=== PATIENT | female | born 1970 | race Caucasian/White ===

== ENCOUNTER 2018-04-09 18:45 | Emergency (ER) | payer MEDICARE, MEDICAID ==
[2018-04-09] MEDS ORDERED: IBUPROFEN 800 MG TABLET PO ONE (19:50)
--- NOTE | 2018-04-09 20:13 | RADIOLOGY REPORT (SQ) ---
EXAM DESCRIPTION: WRIST RIGHT 3 VIEWS COMPLETED DATE/TIME: 04/09/2018 7:59 pm REASON FOR STUDY: pain "knots" COMPARISON: None. NUMBER OF VIEWS: Three views. TECHNIQUE: AP, lateral, and oblique radiographic images acquired of the right wrist. LIMITATIONS: None. FINDINGS: MINERALIZATION: Normal. BONES: No acute fracture or dislocation. No worrisome bone lesions. Normal alignment. SOFT TISSUES: No soft tissue swelling. No foreign body. OTHER: No other significant finding. IMPRESSION: NEGATIVE STUDY OF THE RIGHT WRIST. NO RADIOGRAPHIC EVIDENCE OF ACUTE INJURY. TECHNICAL DOCUMENTATION: JOB ID: [id number] [employer]- All Rights Reserved Reading location - IP/workstation name: [email or web address]
--- NOTE | 2018-04-09 20:13 | RADIOLOGY REPORT (SQ) ---
EXAM DESCRIPTION: HAND RIGHT 3 VIEWS COMPLETED DATE/TIME: 04/09/2018 7:59 pm REASON FOR STUDY: pain "knots" COMPARISON: None. EXAM PARAMETERS: NUMBER OF VIEWS: Three views. TECHNIQUE: AP, lateral and oblique radiographic images acquired of the right hand. LIMITATIONS: None. FINDINGS: MINERALIZATION: Normal. BONES: No acute fracture or dislocation. No worrisome bone lesions. JOINTS: No effusions. SOFT TISSUES: No soft tissue swelling. No foreign body. OTHER: No other significant finding. IMPRESSION: NEGATIVE STUDY OF THE RIGHT HAND. NO RADIOGRAPHIC EVIDENCE OF ACUTE INJURY. TECHNICAL DOCUMENTATION: JOB ID: [id number] [employer] All Rights Reserved Reading location - IP/workstation name: [email or web address]
--- NOTE | 2018-04-09 20:42 | ER Document Report ---
ED Extremity Problem, Upper - General Chief Complaint: Wrist Pain Stated Complaint: RIGHT WRIST PAIN Time Seen by Provider: 04/09/18 19:39 Mode of Arrival: Ambulatory Information source: Patient Notes: 47-year-old female presented ED for complaint of right hand pain 3 months. She states she also has right wrist pain. She is wearing a cock-up splint when I came in to see her. She is alert and oriented respirations regular and nonlabored speaking in full sentences and walks with a even steady gait. TRAVEL OUTSIDE OF THE [place] IN LAST 30 DAYS: No - HPI Patient complains to provider of: Right, Hand, Wrist Onset: Other - Pain has been for about 3 months Recent injury: No Quality of pain: Achy, Sharp Severity of pain: Constant Pain Level: 3 Exacerbated by: Movement, Exertion Relieved by: Rest, Positioning Similar symptoms previously: Yes Recently seen / treated by doctor: No - Related Data Allergies/Adverse Reactions: duloxetine [From Cymbalta] Allergy (Verified 04/09/18 18:49) vortioxetine [From Trintellix] Allergy (Verified 04/09/18 18:49) Past Medical History - General Information source: Patient - Social History Smoking Status: Current Every Day Smoker Cigarette use (# per day): Yes - Pack per day Chew tobacco use (# tins/day): No Smoking Education Provided: Yes - 4 minutes Frequency of alcohol use: Occasional Drug Abuse: None 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 Lives with: Family Family History: Reviewed & Not Pertinent Patient has suicidal ideation: No Patient has homicidal ideation: No - Past Medical History Cardiac Medical History: Reports: Hx Hypercholesterolemia, Hx Hypertension Pulmonary Medical History: Reports: Hx COPD EENT Medical History: Reports: None Neurological Medical History: Reports: Hx Migraine Endocrine Medical History: Reports: Hx Diabetes Mellitus Type 2, Hx Hypothyroidism Renal/ Medical History: Reports: None Malignancy Medical History: Reports: None GI Medical History: Reports: Hx Gastroesophageal Reflux Disease Musculoskeltal Medical History: Reports Hx Arthritis, Reports Hx Musculoskeletal Deformity, Reports Hx Musculoskeletal Trauma Psychiatric Medical History: Reports: Hx Depression Traumatic Medical History: Reports: None Infectious Medical History: Reports: None Past Surgical History: Reports: Hx Gynecologic Surgery - Uterine ablation and, Hx Orthopedic Surgery - Neck surgery, Hx Tubal Ligation - Immunizations Immunizations up to date: Yes Review of Systems - Review of Systems Constitutional: No symptoms reported EENT: No symptoms reported Cardiovascular: No symptoms reported Respiratory: No symptoms reported Gastrointestinal: No symptoms reported Genitourinary: No symptoms reported Female Genitourinary: No symptoms reported Musculoskeletal: Other - Right hand and wrist pain Skin: No symptoms reported Hematologic/Lymphatic: No symptoms reported Neurological/Psychological: No symptoms reported -: Yes All other systems reviewed and negative Physical Exam - Vital signs Vitals: Temp Pulse Resp BP Pulse Ox 98.5 F 103 H 20 131/68 H 95 04/09/18 18:52 04/09/18 18:52 04/09/18 18:52 04/09/18 18:52 04/09/18 18:52 - Extremities General upper extremity: Normal color, Normal ROM, Normal temperature General lower extremity: Normal inspection, Nontender, Normal color, Normal ROM , Normal temperature, Normal weight bearing. No: Reji's sign Wrist: Tender, Limited ROM - Due to pain Hand: Tender, No evidence of human bite, No evidence of FB, Other - Small cyst just medial to the thumb on the hand Course - Re-evaluation Re-evalutation: 04/09/18 20:50 X-ray results discussed with patient and written report given to patient to follow-up with orthopedics. Patient was given the name and number of the hand surgeon to follow-up with. Patient was instructed to use elevation ice and ibuprofen for her pain. Patient has a cock-up splint on when she came in. I encouraged her to use that for the discomfort as she states this has been helping her. - Vital Signs Vital signs: Temp Pulse Resp BP Pulse Ox 98.5 F 103 H 20 131/68 H 95 04/09/18 18:52 04/09/18 18:52 04/09/18 18:52 04/09/18 18:52 04/09/18 18:52 - Diagnostic Test Radiology reviewed: Image reviewed, Reports reviewed Discharge - Discharge Clinical Impression: Right wrist pain, Right hand pain HTN (hypertension) Qualifiers: Hypertension type: unspecified Qualified Code(s): I10 - Essential (primary) hypertension Condition: Stable Disposition: HOME, SELF-CARE Additional Instructions: You were seen today for complaint of right hand pain for the last 3 months. States there have been no new injuries to your hand. Your hand was x-rayed today, there were no radiological changes to your hand. Written report of your x-rays were given to you to follow-up with your primary doctor. Please use the splint that you have on your hand for comfort. Aspercreme lidocaine cream can be used on this area to help with the pain. Ibuprofen Ibuprofen is an excellent, safe drug for pain control. In addition, it has potent antiinflammatory effects which are beneficial, especially in the treatment of injuries, arthritis, or tendonitis. It's best to take ibuprofen with food. Persons with ulcer disease or allergy to aspirin should notify their physician of this before taking ibuprofen. Take the medication exactly as prescribed. Don't take additional doses unless instructed to do so by your doctor. If you develop wheezing, shortness of breath, hives, faintness, stomach pain, vomiting, or dark black stools, return for re-evaluation at once. ICE & ELEVATION: Apply ice packs frequently against the painful area. Many different schedules are recommended, such as "20 minutes on, 20 minutes off" or "one hour ice, two hours rest." If you need to work, you may need to go longer between ice treatments. You should plan to have the area ice packed AT LEAST one- fourth of the time. The ice should be applied over the wrap, tape, or splint, or over a layer of cloth -- not directly against the skin. Some ice bags have a built-in cloth and can be put directly on the skin. Your injured part should be elevated as much as possible over the next 48 hours. Try to keep the injury above the level of the heart. Avoid use of the injured area. Elevation and rest will decrease the swelling. USE OF [id number] IBUPROFEN: Ibuprofen (Advil, Nuprin, Medipren, Motrin IB) is a medication for fever and pain control. In addition, it has anti- inflammatory effects which may be beneficial, especially in the treatment of injuries. It's best to take ibuprofen with food. Persons with ulcer disease or allergy to aspirin should notify their physician of this before taking ibuprofen. Ibuprofen can be given every four to six hours, for a total of four doses daily. Age Pain or fever dose Antiinflammatory dose 6-8 yr 200 mg (1 tab) 200 mg (1 tab) 9-11 yr 200 mg (1 tab) 200-400 mg (1-2 tab) 11-14 yr 200-400 mg (1-2 tab) 400 mg (2 tab) 15-adult 400 mg (2 tab) 600 mg (3 tab) FOLLOW-UP CARE: If you have been referred to a physician for follow-up care, call the physician s office for an appointment as you were instructed or within the next two days. If you experience worsening or a significant change in your symptoms, notify the physician immediately or return to the Emergency Department at any time for re-evaluation. Forms: Elevated Blood Pressure, Smoking Cessation Education, Return to Work Referrals: NEENA ANTHONY MD [Primary Care Provider] - Follow up as needed ERIN MURPHY DO [ACTIVE STAFF] - Follow up as needed
[2018-04-09 20:50] VITALS: BP 117/57
== END 2018-04-09 20:50 | disposition home or self-care (01) ==
LOC: ER 18:45
DX: M79.641 Pain in right hand (principal); M25.531 Pain in right wrist; I10 Essential (primary) hypertension; J44.9 Chronic obstructive pulmonary disease, unspecified; E11.9 Type 2 diabetes mellitus without complications; F17.210 Nicotine dependence, cigarettes, uncomplicated; Z71.6 Tobacco abuse counseling; Z88.6 Allergy status to analgesic agent; Z88.8 Allergy status to other drugs, medicaments and biological substances
CPT/HCPCS: 99406; 99283; 73130; 73110; A9270

== ENCOUNTER 2018-10-23 19:52 | Emergency (ER) | payer MEDICARE, MEDICAID ==
--- NOTE | 2018-10-23 20:48 | ER Document Report ---
ED General - General Chief Complaint: Ear Pain Stated Complaint: EAR PAIN Time Seen by Provider: 10/23/18 20:47 Mode of Arrival: Ambulatory Information source: Patient TRAVEL OUTSIDE OF THE [place] IN LAST 30 DAYS: No - HPI Patient complains to provider of: Ear pain Onset: Other - Is a 47-year-old female who is an every day smoker and diabetic that presents for evaluation of pain in her left ear. She notes that she had this pierced because it helps with headaches have been doing okay with that sense. Her ear is been worse over the last 3 days she began to have pain and drainage from there since. She is not been able to take it out she is been washing it twice a day without any improvement in the symptoms. Denies any chest pain shortness of breath abdominal pain diarrhea constipation dysuria. She never had anything like this in the past. Has no change in her ability to hear out of the ear. - Related Data Allergies/Adverse Reactions: duloxetine [From Cymbalta] Allergy (Verified 04/09/18 18:49) vortioxetine [From Trintellix] Allergy (Verified 04/09/18 18:49) Past Medical History - General Information source: Patient - Social History Smoking Status: Current Every Day Smoker Chew tobacco use (# tins/day): Yes Smoking Education Provided: Yes Frequency of alcohol use: Occasional Drug Abuse: None Lives with: Family Family History: Reviewed & Not Pertinent - Past Medical History Cardiac Medical History: Reports: Hx Hypercholesterolemia, Hx Hypertension Pulmonary Medical History: Reports: Hx COPD Neurological Medical History: Reports: Hx Migraine Endocrine Medical History: Reports: Hx Diabetes Mellitus Type 2, Hx Hypothyroidism Renal/ Medical History: Denies: Hx Peritoneal Dialysis GI Medical History: Reports: Hx Gastroesophageal Reflux Disease Musculoskeletal Medical History: Reports Hx Arthritis, Reports Hx Muscul oskeletal Deformity, Reports Hx Musculoskeletal Trauma Psychiatric Medical History: Reports: Hx Depression Past Surgical History: Reports: Hx Gynecologic Surgery - Uterine ablation and, Hx Orthopedic Surgery - Neck surgery, Hx Tubal Ligation - Immunizations Immunizations up to date: Yes Review of Systems - Review of Systems -: Yes All other systems reviewed and negative Physical Exam - Vital signs Vitals: Temp Pulse Resp BP Pulse Ox 98.3 F 114 H 18 128/77 H 94 10/23/18 20:15 10/23/18 20:15 10/23/18 20:15 10/23/18 20:15 10/23/18 20:15 - General General appearance: Appears well In distress: None - HEENT Head: Normocephalic Eyes: Normal Conjunctiva: Normal Cornea: Normal Eyelashes: Normal Pupils: PERRL Ears: Other - The tragus is pierced, erythematous, there is purulent drainage and an intact piercing in the year. There is tenderness and pain with manipulation of the auricle - Respiratory Respiratory status: No respiratory distress Chest status: Nontender Breath sounds: Normal Chest palpation: Normal Course - Re-evaluation Re-evalutation: 47-year-old with pain and swelling in the left ear. She has a piercing in the tragus of the left ear which is infected and appears to have developed erythema and swelling into the surrounding cartilage of the left ear. Believe that this is appropriate for treatment at this time, foreign body will be removed to prevent further infectious development. The urine was subsequently removed, she was encouraged not to replace the hearing thereafter. She was discharged with a prescription for Phenergan as she has had intermittent nausea recently as well as a prescription for ciprofloxacin for her possible ear infection. She is discharged with return precautions and encouraged follow-up with her primary physician as well as smoking cessation counseling. - Vital Signs Vital signs: Temp Pulse Resp BP Pulse Ox 98.3 F 95 18 133/70 H 96 10/23/18 20:15 10/23/18 21:38 10/23/18 21:38 10/23/18 21:38 10/23/18 21:38 Procedures - Incision and Drainage Left Head Incision Method: Incision made with needle - no incision was required for body removal Notes: A circular loop hearing which was embedded in the left ear was cut out utilizing a ring cutter, no retained foreign body was identified, the entirety of the earring was removed Discharge - Discharge Clinical Impression: Perichondritis, Foreign body Condition: Good Disposition: HOME, SELF-CARE Additional Instructions: You were seen today in the emergency department for the pain and swelling in your ear. Your earring was cut out. You have been given an antibiotic to use for the next week. Please continue to use soap and water to cleanse this. Return in case of worsening fevers chills swelling in the ear which is worsening. Otherwise please follow-up with your primary physician. Prescriptions: Ciprofloxacin HCl [Cipro 500 mg Tablet] 500 mg PO BID #20 tablet Promethazine HCl [Phenergan 25 mg Tablet] 1 - 2 tab PO Q6H PRN #15 tablet PRN Reason: Referrals: NEENA ANTHONY MD [Primary Care Provider] - Follow up as needed
[2018-10-23] MEDS ORDERED: CIPROFLOXACIN HCL 500 MG TABLET PO ONE (21:14)
[2018-10-23 21:40] VITALS: BP 133/70
== END 2018-10-23 21:40 | disposition home or self-care (01) ==
LOC: ER 19:52
DX: H92.02 Otalgia, left ear (principal); F17.200 Nicotine dependence, unspecified, uncomplicated; E11.9 Type 2 diabetes mellitus without complications; I10 Essential (primary) hypertension; J44.9 Chronic obstructive pulmonary disease, unspecified; H61.002 Unspecified perichondritis of left external ear
CPT/HCPCS: 99283; A9270

== ENCOUNTER 2018-12-25 23:42 | Emergency (ER) | payer MEDICARE, MEDICAID ==
[2018-12-26 00:09] VITALS: BP 133/69
[2018-12-26] MEDS ORDERED: DIPH/PERTUSS(ACELL)/TETANUS VAC/PF 0.5 ML SYR (>=10YO) IM ONE (01:25)
[2018-12-26] MEDS ORDERED: IBUPROFEN 800 MG TABLET PO ONE (01:26)
[2018-12-26] MEDS ORDERED: DOXYCYCLINE HYCLATE 100 MG TABLET PO ONE (01:26)
--- NOTE | 2018-12-26 02:05 | RADIOLOGY REPORT (SQ) ---
EXAM DESCRIPTION: XR HIP COMPLETED DATE/TME: 12/26/2018 01:25 CLINICAL HISTORY: 48 years Female, fall COMPARISON: None. Findings: Enostoses. Bones, joints, and soft tissues of the XR HIP/pelvis 1 VIEW appear otherwise unremarkable. IMPRESSION: No acute findings. Limitation: Single view only.
--- NOTE | 2018-12-26 02:20 | RADIOLOGY REPORT (SQ) ---
CLINICAL HISTORY: fall COMPARISON: None. TECHNIQUE: XR FOOT 3 OR MORE VIEWS BILATERAL 12/26/2018 1:25 AM CDT FINDINGS: There is no fracture. Joint spaces are preserved. Soft tissues are unremarkable. IMPRESSION: No acute osseous findings.
--- NOTE | 2018-12-26 02:28 | RADIOLOGY REPORT (SQ) ---
EXAM DESCRIPTION: XR LEFT ANKLE 3 OR MORE VIEWS COMPLETED DATE/TME: 12/26/2018 01:25 CLINICAL HISTORY: 48 years, Female, fall COMPARISON: None. NUMBER OF VIEWS: TECHNIQUE: LIMITATIONS: None. FINDINGS: There is a possible small fracture fragment coming off the lateral tarsal bones, seen on the AP view. This could be a fracture fragment off the cuboid bone. On the lateral view, there is a possible small fracture fragment involving the distal talus, dorsally. There is soft tissue swelling. IMPRESSION: Possible small fracture fragment coming off the lateral tarsal bones. Possible small fracture fragment involving the distal talus, dorsally. Please correlate clinically, as to whether the patient has point tenderness in these locations. copyright 2010 [employer]- All Rights Reserved
--- NOTE | 2018-12-26 03:31 | ER Document Report ---
ED Fall - General Chief Complaint: Fall Injury Stated Complaint: FALL/KNEE,ANKLE,HIP PAIN Time Seen by Provider: 12/26/18 01:18 Primary Care Provider: NEENA ANTHONY MD [Primary Care Provider] - Follow up as needed ROYCE DEY MD [ACTIVE STAFF] - Follow up as needed Notes: Patient is a 48-year-old female diabetic who presents to the emergency department after rolling her left ankle 2 days ago. Patient states she continues with pain, swelling, ecchymosis which is why she presents to the emergency room. Patient also complaining of generalized pain in her right foot and left hip. Patient's denying hitting her head, neck, back, pain in any or loss of consciousness. Patient had sustained some abrasions to her right great toe. States she has been cleaning them and placing bacitracin on them at home for the last 2 days. Past medical history: Diabetes TRAVEL OUTSIDE OF THE [place] IN LAST 30 DAYS: No - Related data Allergies/Adverse Reactions: duloxetine [From Cymbalta] Allergy (Verified 04/09/18 18:49) vortioxetine [From Trintellix] Allergy (Verified 04/09/18 18:49) Past Medical History - General Information source: Patient - Social History Smoking Status: Current Every Day Smoker Frequency of alcohol use: Rare Drug Abuse: None Family History: Reviewed & Not Pertinent Patient has suicidal ideation: No Patient has homicidal ideation: No - Past Medical History Cardiac Medical History: Reports: Hx Hypercholesterolemia, Hx Hypertension Pulmonary Medical History: Reports: Hx COPD Neurological Medical History: Reports: Hx Migraine Endocrine Medical History: Reports: Hx Diabetes Mellitus Type 2, Hx Hypothyroidism Renal/ Medical History: Denies: Hx Peritoneal Dialysis GI Medical History: Reports: Hx Gastroesophageal Reflux Disease Musculoskeletal Medical History: Reports Hx Arthritis, Reports Hx Musculoskeletal Deformity, Reports Hx Musculoskeletal Trauma Psychiatric Medical History: Reports: Hx Depression Past Surgical History: Reports: Hx Gynecologic Surgery - Uterine ablation and, Hx Orthopedic Surgery - Neck surgery, Hx Tubal Ligation - Immunizations Immunizations up to date: Yes Review of Systems - Review of Systems Constitutional: No symptoms reported EENT: No symptoms reported Cardiovascular: No symptoms reported Respiratory: No symptoms reported Gastrointestinal: No symptoms reported Genitourinary: No symptoms reported Female Genitourinary: No symptoms reported Musculoskeletal: See HPI Skin: See HPI Hematologic/Lymphatic: No symptoms reported Neurological/Psychological: No symptoms reported Physical Exam - Vital signs Vitals: Temp Pulse Resp BP Pulse Ox 98.1 F 98 17 133/69 H 94 12/26/18 00:03 12/26/18 00:03 12/26/18 00:03 12/26/18 00:03 12/26/18 00:03 - Notes Notes: GENERAL: Alert, interacts well. No acute distress. HEAD: Normocephalic, atraumatic. EYES: Pupils equal, round, and reactive to light. Extraocular movements intact. ENT: Oral mucosa moist, tongue midline. NECK: Full range of motion. Supple. Trachea midline. LUNGS: Clear to auscultation bilaterally, no wheezes, rales, or rhonchi. No respiratory distress. HEART: Regular rate and rhythm. No murmur ABDOMEN: Soft, non-tender. Non-distended. Bowel sounds present in all 4 qu adrants. EXTREMITIES: Moves all 4 extremities spontaneously. normal radial and dorsalis pedis pulses bilaterally. No cyanosis. Ecchymosis noted left lateral malleolus along with swelling. Good distal capillary refill noted all 5 toes left foot. Patient has abrasions noted to toe #1 and 2 on the right foot. Minor redness noted around abrasion, good capillary refill noted 5 toes right foot. Pelvis: Stable, patient able to walk in the emergency room but is complaining of pain ASIS. No outward trauma seen. BACK: no cervical, thoracic, lumbar midline tenderness. No saddle anesthesia, normal distal neurovascular exam. NEUROLOGICAL: Alert and oriented x3. Normal speech. cranial nerves II through XII grossly intact PSYCH: Normal affect, normal mood. SKIN: Warm, dry, normal turgor. Course - Re-evaluation Re-evalutation: 12/26/18 04:23 Patient's x-ray does note a small fracture fragment coming off the lateral tarsal bones, noted that it could be a fracture fragment of the cuboid bone. Also noted a small fracture fragment involving the distal talus dorsally. Discussed these imaging results with patient at bedside. Will place a short posterior leg splint with close follow-up with orthopedics. Wounds on right toes were cleaned and dressed. Discussed prophylactic antibiotic use due to the slight erythema. Also discussed patient being a diabetic and need for close follow-up. Patient voices that she will follow-up with her primary care provider in the next 24 hours. Patient stable for discharge. - Vital Signs Vital signs: Temp Pulse Resp BP Pulse Ox 98.1 F 98 17 133/69 H 94 12/26/18 00:03 12/26/18 00:03 12/26/18 00:03 12/26/18 00:03 12/26/18 00:03 Procedures - Immobilization Left Pre-Proc Neuro Vasc Exam: Normal Immobilizer type: Short Leg Posterior Performed by: Provider assisted Post-Proc Neuro Vasc Exam: Normal Alignment checked and good: Yes Discharge - Discharge Clinical Impression: Abrasion Talus fracture Qualifiers: Encounter type: initial encounter Fracture type: closed Talus location: unspecified portion of talus Fracture alignment: nondisplaced Laterality: left Qualified Code(s): S92.102A - Unspecified fracture of left talus, initial encounter for closed fracture Cuboid fracture Qualifiers: Encounter type: initial encounter Fracture type: closed Fracture alignment: nondisplaced Laterality: left Qualified Code(s): S92.215A - Nondisplaced fracture of cuboid bone of left foot, initial encounter for closed fracture Condition: Stable Disposition: HOME, SELF-CARE Instructions: Avulsion Fracture of the Ankle ([facility]), Use of Crutches ([facility]), Foot Fracture ([facility]), Fracture ([facility]), Tetanus Immunization Given ([facility]) Additional Instructions: Discussed you have been seen and treated in the emergency department after a fall. There is a small fracture fragment noted to your lateral tarsal bone as well as a small fracture fragment involving the distal talus. He also sustained multiple abrasions to your toes. Due to being diabetic I am placing you on antibiotic prophylaxis. Please make sure you take antibiotics as prescribed. Please make sure you keep the wounds clean and dry. Please make sure you follow-up with your primary care provider in the next 24 to 48 hours for a wound recheck. Please also make sure you follow-up with orthopedics for continued care of the fractures in your left ankle. Please return to the emergency room should he have any other concerning symptoms. Prescriptions: Cephalexin Monohydrate [Keflex 500 mg Capsule] 500 mg PO QID 14 Days capsule Doxycycline Hyclate 100 mg PO BID #14 capsule Hydrocodone/Acetaminophen [[place] 5-325 mg Tablet] 1 - 2 tab PO Q6 PRN #12 tablet PRN Reason: Forms: Return to Work Referrals: NEENA ANTHONY MD [Primary Care Provider] - Follow up as needed ROYCE DEY MD [ACTIVE STAFF] - Follow up as needed
[2018-12-26] MEDS ORDERED: HYDROCODONE/ACETAMINOPHEN 5-325 MG (6 TAB/ER DISP) PO PRN (03:39)
== END 2018-12-26 03:54 | disposition home or self-care (01) ==
LOC: ER 23:42
PROC: 2W3RX1Z Immobilization of Left Lower Leg using Splint (ICD-10-PCS; principal; 2018-12-25)
DX: S92.012A Displaced fracture of body of left calcaneus, initial encounter for closed fracture (principal); S92.215A Nondisplaced fracture of cuboid bone of left foot, initial encounter for closed fracture; S90.411A Abrasion, right great toe, initial encounter; M79.671 Pain in right foot; M25.552 Pain in left hip; X50.1XXA Overexertion from prolonged static or awkward postures, initial encounter; F17.200 Nicotine dependence, unspecified, uncomplicated; I10 Essential (primary) hypertension; J44.9 Chronic obstructive pulmonary disease, unspecified; E11.9 Type 2 diabetes mellitus without complications
CPT/HCPCS: 99283; 90471; 73610; 73502; 73630; 90715; 29515; A9270 ×3

== ENCOUNTER 2019-03-25 23:32 | Emergency (ER) | payer MEDICARE, MEDICAID ==
[2019-03-26] MEDS ORDERED: NORMAL SALINE 1000 ML 1,000 ML IV ONE (00:04)
--- NOTE | 2019-03-26 00:04 | ER Document Report ---
ED General - General Chief Complaint: High Blood Sugar Stated Complaint: REPORTS HIGH BLOOD SUGAR Time Seen by Provider: 03/25/19 23:50 Primary Care Provider: DIRK MUHAMMAD MD [EMERITUS] - Follow up in 3-5 days HERRERA GIMENEZ MD [COMMUNITY BASED STAFF] - Follow up in 3-5 days Notes: Patient is a 48-year-old female who presents with complaint high blood sugar. No fevers. Some nausea. Vomiting x1. She said she lost her Accu-Chek machine and therefore is not been checking her sugars not been doing her sliding scale insulin. She says she finally found her Accu-Chek machine today and it read high therefore she came to the ER. She gave herself a dose of Humalog and Trujeo and then came to the ER. She feels as if she started developing a yeast infection therefore she started using a vaginal cream. She says she is currently between doctors. TRAVEL OUTSIDE OF THE [place] IN LAST 30 DAYS: No - Related Data Allergies/Adverse Reactions: duloxetine [From Cymbalta] Allergy (Verified 04/09/18 18:49) vortioxetine [From Trintellix] Allergy (Verified 04/09/18 18:49) Past Medical History - Social History Smoking Status: Never Smoker Frequency of alcohol use: None Drug Abuse: None Family History: Reviewed & Not Pertinent - Past Medical History Cardiac Medical History: Reports: Hx Hypercholesterolemia, Hx Hypertension Pulmonary Medical History: Reports: Hx COPD Neurological Medical History: Reports: Hx Migraine Endocrine Medical History: Reports: Hx Diabetes Mellitus Type 2, Hx Hypot hyroidism Renal/ Medical History: Denies: Hx Peritoneal Dialysis GI Medical History: Reports: Hx Gastroesophageal Reflux Disease Musculoskeletal Medical History: Reports Hx Arthritis, Reports Hx Musculoskeletal Deformity, Reports Hx Musculoskeletal Trauma Psychiatric Medical History: Reports: Hx Depression Past Surgical History: Reports: Hx Gynecologic Surgery - Uterine ablation and, Hx Orthopedic Surgery - Neck surgery, Hx Tubal Ligation - Immunizations Immunizations up to date: Yes Review of Systems - Review of Systems Notes: My Normal Review Basic REVIEW OF SYSTEMS: CONSTITUTIONAL : Fever. Some fatigue. EENT: Denies eye, ear, throat, or mouth pain or symptoms. Denies nasal or sinus congestion. CARDIOVASCULAR: Denies chest pain. RESPIRATORY: Denies cough, cold, or chest congestion. Denies shortness of breath, difficulty breathing, or wheezing. GASTROINTESTINAL: Denies abdominal pain. Vomiting x1. GENITOURINARY: increased urination. FEMALE GENITOURINARY: Vaginal irritation. MUSCULOSKELETAL: Denies neck or back pain or joint pain or swelling. SKIN: Denies rash or skin lesions. NEUROLOGICAL: Denies altered mental status or loss of consciousness. Denies headache. Denies weakness or paralysis or loss of use of either side. Denies p roblems with gait or speech. Denies sensory or motor loss. ALL OTHER SYSTEMS REVIEWED AND NEGATIVE. Physical Exam - Vital signs Vitals: Temp Pulse Resp BP Pulse Ox 97.9 F 98 16 143/64 H 93 03/25/19 23:39 03/25/19 23:39 03/25/19 23:39 03/25/19 23:39 03/25/19 23:39 - Notes Notes: General Appearance: Well nourished, alert, cooperative, no acute distress, no obvious discomfort. Well-appearing Vitals: reviewed, See vital signs table. Head: no swelling or tenderness to the head Eyes: PERRL, EOMI, Conjuctiva clear Mouth: No decreasd moisture Lungs: No wheezing, No rales, No rhonci, No accessory muscle use, good air exchange bilaterally. Heart: Normal rate, Regular rythm, No murmur, no rub Abdomen: Normal BS, soft, No rigidity, No abdominal tenderness, No guarding, no rebound, no abdominal masses, no organomegaly Extremities: strength 5/5 in all extremities, good pulses in all extremities, no swelling or tenderness in the extremities, no edema. Skin: warm, dry, appropriate color, no rash Neuro: speech clear, oriented x 3, normal affect, responds appropriately to questions. Course - Re-evaluation Re-evalutation: 03/26/19 01:15 Patient's blood sugar came back over 700. I did have the nurse to repeat Accu- Cheks because the patient did take insulin before come to the ER. Her Accu-Chek is still reading high suggesting high blood sugar still over 500. Therefore I gave her 20 units of regular insulin. Remainder of her labs do not show that she is acidotic. She is otherwise well-appearing. There are no signs of infection. We will continue to work on getting her blood sugar under better control. 03/26/19 23:35 Patient's blood sugars eventually improved. I did re-prescribe her insulin that she is turned around low on it. I encouraged her to keep a close on her blood sugars and I will place her on a sliding scale. She says that she had recently been switched to estimating the amount of insulin she needs just based on the food she eats but her sugars have been high since doing this. I encouraged her return to ER immediately if she has recurrent high blood sugars not responding to insulin, current blurred vision, fevers, or if she feels unwell. Patient agrees with plan will be discharged home. Dictation of this chart was performed using voice recognition software; therefore, there may be some unintended grammatical errors. - Vital Signs Vital signs: Temp Pulse Resp BP Pulse Ox 97.9 F 98 18 113/68 96 03/25/19 23:39 03/25/19 23:39 03/26/19 05:14 03/26/19 05:14 03/26/19 05:14 - Laboratory Result Diagrams: 03/25/19 23:59 03/25/19 23:59 Laboratory results interpreted by me: 03/25/19 03/25/19 03/26/19 23:41 23:59 00:30 Sodium 131.3 L Chloride 96 L Creatinine 0.48 L Glucose 732 H* POC Glucose > 550 H* Urine Glucose (UA) >=500 H 03/26/19 03/26/19 03/26/19 01:08 02:40 03:23 Sodium Chloride Creatinine Glucose POC Glucose > 550 H* 512 H* 456 H* Urine Glucose (UA) 03/26/19 04:33 Sodium Chloride Creatinine Glucose POC Glucose 313 H Urine Glucose (UA) Discharge - Discharge Clinical Impression: Hyperglycemia Condition: Good Disposition: HOME, SELF-CARE Additional Instructions: Your blood sugars been well to insulin here. Please continue to keep a close eye on your blood sugar with your glucometer and take your insulin as prescribed. Please return to the ER immediately if you have fevers, vomiting, recurrent blurred vision, or have recurrent blood sugars above 350 that are not responding to your insulin. I have given the names of 2 local primary care doctors I feel are good doctors in the area. Please call to try to establish herself with a primary care doctor. Please use her Humalog based on the sliding scale. Base the sliding scale off your pre-meal blood sugar. Prescriptions: Insulin Glargine,Hum.rec.anlog [Tojanene Quijano] 80 unit SQ DAILY #1 insuln.pen Insulin Lispro [Humalog Kwikpen U-100] 0 unit SQ ASDIR PRN #1 insuln.pen PRN Reason: Referrals: DIRK MUHAMMAD MD [EMERITUS] - Follow up in 3-5 days HERRERA GIMENEZ MD [COMMUNITY BASED STAFF] - Follow up in 3-5 days
[2019-03-26 00:42] LABS: ABSOLUTE BASOPHILS # (AUTO) 0.1 10^3/uL (0.0-0.2); ABSOLUTE EOSINOPHILS # (AUTO) 0.2 10^3/uL (0.0-0.6); ABSOLUTE LYMPHOCYTES (AUTO) 2.6 10^3/uL (0.5-4.7); ABSOLUTE MONOCYTES (AUTO) 0.8 10^3/uL (0.1-1.4); BASOPHILS % (AUTO) 1.1 % (0-2); EOSINOPHILS % (AUTO) 2.1 % (0-6); HEMATOCRIT 44.5 % (36.0-47.0); HEMOGLOBIN 14.5 g/dL (12.0-15.5); LYMPHOCYTES % (AUTO) 29.5 % (13-45); MEAN CORPUSCULAR HEMOGLOBIN 30.6 pg (27.0-33.4); MEAN CORPUSCULAR HGB CONC 32.6 g/dL (32.0-36.0); MEAN CORPUSCULAR VOLUME 94 fl (80-97); MONOCYTES % (AUTO) 9.4 % (3-13); PLATELET COUNT 396 10^3/uL (150-450); RED BLOOD COUNT 4.73 10^6/uL (3.72-5.28); SEGMENTED NEUTROPHILS % (AUTO) 57.9 % (42-78); TOTAL CELLS COUNTED % (AUTO) 100 %; WHITE BLOOD COUNT 8.7 10^3/uL (4.0-10.5)
[2019-03-26 00:44] LABS: APPEARANCE,URINE CLEAR; BILIRUBIN,URINE NEGATIVE (NEGATIVE); COLOR,URINE STRAW; GLUCOSE, URINE >=500 mg/dL (NEGATIVE); KETONES,URINE NEGATIVE (NEGATIVE); LEUKOCYTE ESTERASE,URINE NEGATIVE (NEGATIVE); NITRITE,URINE NEGATIVE (NEGATIVE); PROTEIN,URINE NEGATIVE (NEGATIVE); URINE SPECIFIC GRAVITY 1.031; UROBILINOGEN,URINE NEGATIVE mg/dL (<2.0)
[2019-03-26 00:46] LABS: ANION GAP 11 (5-19); BLOOD UREA NITROGEN 16 mg/dL (7-20); CALCIUM 9.1 mg/dL (8.4-10.2); CARBON DIOXIDE 24 mmol/L (22-30); CHLORIDE 96 mmol/L (98-107); POTASSIUM 4.5 mmol/L (3.6-5.0); SODIUM 131.3 mmol/L (137-145)
[2019-03-26 01:00] LABS: GLUCOSE 732 mg/dL (75-110)
[2019-03-26] MEDS ORDERED: INSULIN REG, HUMAN 100 UNIT/ML 3 ML VIAL (PYX) SUBCUT ONE ×2 (01:15→03:33)
[2019-03-26 05:32] VITALS: BP 113/68
== END 2019-03-26 05:20 | disposition home or self-care (01) ==
LOC: ER 23:32
DX: E11.65 Type 2 diabetes mellitus with hyperglycemia (principal); R11.2 Nausea with vomiting, unspecified; R53.83 Other fatigue; R50.9 Fever, unspecified; Z79.4 Long term (current) use of insulin; J44.9 Chronic obstructive pulmonary disease, unspecified; I10 Essential (primary) hypertension
CPT/HCPCS: 99284; 96360; 36415; 82962; 85025; 80048; 81001; A9270; J7030; J1815

== ENCOUNTER 2019-10-22 21:48 | Emergency (ER) | payer MEDICAID, MEDICARE, OTHER ==
[2019-10-22 22:28] LABS: APPEARANCE,URINE CLEAR; BILIRUBIN,URINE NEGATIVE (NEGATIVE); COLOR,URINE YELLOW; GLUCOSE, URINE >=500 mg/dL (NEGATIVE); KETONES,URINE NEGATIVE (NEGATIVE); LEUKOCYTE ESTERASE,URINE NEGATIVE (NEGATIVE); NITRITE,URINE NEGATIVE (NEGATIVE); PROTEIN,URINE NEGATIVE (NEGATIVE); URINE SPECIFIC GRAVITY 1.037; UROBILINOGEN,URINE NEGATIVE mg/dL (<2.0)
[2019-10-22 23:08] LABS: ABSOLUTE BASOPHILS # (AUTO) 0.1 10^3/uL (0.0-0.2); ABSOLUTE EOSINOPHILS # (AUTO) 0.2 10^3/uL (0.0-0.6); ABSOLUTE MONOCYTES (AUTO) 0.6 10^3/uL (0.1-1.4); ABSOLUTE NEUT (AUTO) 4.2 10^3/uL (1.7-8.2); EOSINOPHILS % (AUTO) 2.2 % (0-6); HEMATOCRIT 43.3 % (36.0-47.0); HEMOGLOBIN 14.7 g/dL (12.0-15.5); LYMPHOCYTES % (AUTO) 37.1 % (13-45); MEAN CORPUSCULAR HEMOGLOBIN 30.9 pg (27.0-33.4); MEAN CORPUSCULAR HGB CONC 33.9 g/dL (32.0-36.0); MEAN CORPUSCULAR VOLUME 91 fl (80-97); MONOCYTES % (AUTO) 7.2 % (3-13); PLATELET COUNT 478 10^3/uL (150-450); RED BLOOD COUNT 4.75 10^6/uL (3.72-5.28); RED CELL DISTRIBUTION WIDTH 13.7 % (11.5-14.0); SEGMENTED NEUTROPHILS % (AUTO) 52.5 % (42-78); TOTAL CELLS COUNTED % (AUTO) 100 %
[2019-10-22 23:22] LABS: ANION GAP 9 (5-19); BLOOD UREA NITROGEN 20 mg/dL (7-20); CALCIUM 9.5 mg/dL (8.4-10.2); CARBON DIOXIDE 27 mmol/L (22-30); CHLORIDE 101 mmol/L (98-107); POTASSIUM 4.7 mmol/L (3.6-5.0)
[2019-10-22 23:29] LABS: GLUCOSE 401 mg/dL (75-110)
[2019-10-22] MEDS ORDERED: ONDANSETRON HCL INJ/PF 4 MG/2 ML SDV IV ONE (23:45)
[2019-10-22] MEDS ORDERED: MORPHINE SULFATE 10 MG/ML INJ IV ONE (23:45)
[2019-10-22] MEDS ORDERED: INSULIN REG, HUMAN 100 UNIT/ML 3 ML VIAL (PYX) SUBCUT ONE (23:47)
--- NOTE | 2019-10-22 23:48 | ER Document Report ---
ED GI/ - General Chief Complaint: Abdominal Pain Stated Complaint: FLANK PAIN Time Seen by Provider: 10/22/19 23:32 Primary Care Provider: HERRERA GIMENEZ MD [COMMUNITY BASED STAFF] - Follow up as needed Notes: Patient is a 48-year-old female that comes to the emergency department for chief complaint of right lower quadrant pain. Pain started yesterday and felt intermittently sharp but today became worse. Pain occasionally radiates around to the lower back as well. She denies vomiting, fever, she reports some nausea. She denies dysuria, vaginal bleeding or discharge. She states she no longer has menstrual cycles. She has not had any abdominal surgeries. Past medical history of type 2 diabetes (insulin dependent), anxiety/depression, neuropathy. TRAVEL OUTSIDE OF THE [place] IN LAST 30 DAYS: No - Related Data Allergies/Adverse Reactions: duloxetine [From Cymbalta] Allergy (Verified 04/09/18 18:49) vortioxetine [From Trintellix] Allergy (Verified 04/09/18 18:49) Past Medical History - General Information source: Patient - Social History Smoking Status: Current Every Day Smoker Frequency of alcohol use: None Drug Abuse: None Lives with: Family Family History: Reviewed & Not Pertinent Patient has suicidal ideation: No Patient has homicidal ideation: No - Past Medical History Cardiac Medical History: Reports: Hx Hypercholesterolemia, Hx Hypertension Pulmonary Medical History: Reports: Hx COPD Neurological Medical History: Reports: Hx Migraine Endocrine Medical History: Reports: Hx Diabetes Mellitus Type 2, Hx Hypothyroidism Renal/ Medical History: Denies: Hx Peritoneal Dialysis GI Medical History: Reports: Hx Gastroesophageal Reflux Disease Musculoskeletal Medical History: Reports Hx Arthritis, Reports Hx Musculoskeletal Deformity, Reports Hx Musculoskeletal Trauma Psychiatric Medical History: Reports: Hx Depression Past Surgical History: Reports: Hx Gynecologic Surgery - Uterine ablation and, Hx Orthopedic Surgery - Neck surgery, Hx Tubal Ligation - Immunizations Immunizations up to date: Yes Review of Systems - Review of Systems Constitutional: No symptoms reported EENT: No symptoms reported Cardiovascular: No symptoms reported Respiratory: No symptoms reported Gastrointestinal: See HPI Genitourinary: No symptoms reported Female Genitourinary: No symptoms reported Musculoskeletal: No symptoms reported Skin: No symptoms reported Hematologic/Lymphatic: No symptoms reported Neurological/Psychological: No symptoms reported Physical Exam - Vital signs Vitals: Temp Pulse Resp BP Pulse Ox 98.1 F 98 18 162/75 H 97 10/22/19 22:01 10/22/19 22:01 10/22/19 22:01 10/22/19 22:01 10/22/19 22:01 - Notes Notes: GENERAL: Alert, interacts well. No acute distress. HEAD: Normocephalic, atraumatic. EYES: Pupils equal, round, and reactive to light. Extraocular movements intact. ENT: Oral mucosa moist, tongue midline. Oropharynx unremarkable. Airway patent. LUNGS: Clear to auscultation bilaterally, no wheezes, rales, or rhonchi. No respiratory distress. HEART: Regular rate and rhythm. No murmur ABDOMEN: There is tenderness specifically in the right lower quadrant on exam with wincing. There is mild tenderness in the mid to upper right abdomen as well. Left is completely unremarkable. No rigidity, no rebound tenderness. Bowel sounds quiet. GENITOURINARY: Deferred EXTREMITIES: Moves all 4 extremities spontaneously. No edema, normal radial and dorsalis pedis pulses bilaterally. No cyanosis. BACK: no cervical, thoracic, lumbar midline tenderness. No saddle anesthesia, normal distal neurovascular exam. Moves all extremities in full range of motion. NEUROLOGICAL: Alert and oriented x3. Normal speech. Cranial nerves II through XII grossly intact. PSYCH: Normal affect, normal mood. SKIN: Warm, dry, normal turgor. No rashes or lesions noted. Course - Re-evaluation Re-evalutation: On my exam patient does have right lower quadrant tenderness and winces a lot with palpation of the area. There is a small amount of tenderness in the right upper quadrant as well. Left side of the abdomen is completely benign. No rigidity, no overt guarding, no rebound tenderness. Vital signs unremarkable. Remaining exam unremarkable. Discussed with patient. Because she does have focal tenderness in the right lower quadrant especially with wincing on exam we did discuss options including CAT scan, this was decided to be performed because of her area of tenderness. CBC, chemistry, urinalysis unremarkable except for marked hyperglycemia but there is no acidosis. No leukocytosis. Glucose downtrending nicely. Patient was actually shocked by this, she states that she wants me to tell her exactly what she took because she wants to tell her provider because of her usually extremely elevated glucose levels. CT of the abdomen and pelvis with no acute abnormality. Appendix is visualized and normal. On visualizing the images there is obvious large amount of stool in the right abdomen in the locations of patient's pain. In addition to this pain has been intermittent while she was here after she started drinking the contrast. As result I suspect this is more bowel related and I have a low suspicion of acute appendicitis or other acute abdomen etiology. Discussed results with patient, recommendations, provided with medications, discussed follow-up and return precautions. Patient states understanding and agreement with plan. - Vital Signs Vital signs: Temp Pulse Resp BP Pulse Ox 97.6 F 80 17 133/69 H 100 10/23/19 03:42 10/23/19 03:42 10/23/19 03:42 10/23/19 03:42 10/23/19 03:42 - Laboratory Result Diagrams: 10/22/19 22:42 10/22/19 22:42 Laboratory results interpreted by me: 10/22/19 10/22/19 10/22/19 22:12 22:42 22:42 Plt Count 478 H Glucose 401 H* POC Glucose Urine Glucose (UA) >=500 H 10/23/19 02:02 Plt Count Glucose POC Glucose 151 H Urine Glucose (UA) Discharge - Discharge Clinical Impression: Abdominal pain Qualifiers: Abdominal location: lower abdomen, unspecified Qualified Code(s): R10.30 - Lower abdominal pain, unspecified Uncontrolled diabetes mellitus Qualifiers: Diabetes mellitus type: type 2 Glycemic state: with hyperglycemia Qualified Code(s): E11.65 - Type 2 diabetes mellitus with hyperglycemia Condition: Stable Disposition: HOME, SELF-CARE Additional Instructions: Your work-up shows uncontrolled diabetes. You were given IV fluids and 10 units SubQ Humilin (Regular) insulin. Your CAT scan shows a normal appendix, shows stool retention in the right colon. I suspect this is the cause of your symptoms. I recommend a stool softener, Bentyl for cramping, Phenergan for nausea, plenty of fluids. Follow-up with primary care for additional evaluation management especially of your diabetes. Return for any concerning symptoms including vomiting, fever, severe worsening pain, swelling of the abdomen, or any other concerning or worsening symptoms. Prescriptions: Dicyclomine HCl [Bentyl 20 mg Tablet] 20 mg PO QID PRN #20 tablet PRN Reason: Docusate Sodium [Colace 100 mg Capsule] 100 mg PO ASDIR PRN #30 capsule PRN Reason: Promethazine HCl [Phenergan 25 mg Tablet] 25 mg PO Q6H PRN #15 tablet PRN Reason: Referrals: HERRERA GIMENEZ MD [COMMUNITY BASED STAFF] - Follow up as needed
[2019-10-22] MEDS: NORMAL SALINE 1000 ML 1,000 ML IV PRN (23:58)
[2019-10-22 23:59] LABS: ALBUMIN 3.8 g/dL (3.5-5.0); ALKALINE PHOSPHATASE 97 U/L (38-126); ASPARTATE AMINO TRANSFERASE 18 U/L (14-36); BILIRUBIN,DIRECT 0.2 mg/dL (0.0-0.4); BILIRUBIN,TOTAL 0.2 mg/dL (0.2-1.3); TOTAL PROTEIN 6.7 g/dL (6.3-8.2)
[2019-10-23] MEDS: NORMAL SALINE 1000 ML 1,000 ML IV PRN (01:14)
[2019-10-23] MEDS ORDERED: FENTANYL CITRATE INJ/PF 100 MCG/2 ML AMPUL IV ONE (01:29)
--- NOTE | 2019-10-23 02:46 | RADIOLOGY REPORT (SQ) ---
CLINICAL HISTORY: RLQ pain. CREAT 0.72 COMPARISON: None. TECHNIQUE: CT ABDOMEN PELVIS WITH IV CONTRAST on 10/23/2019 12:00 AM MEDICAL LABORATORY TECHNOLOGIST This exam was performed according to our departmental dose-optimization program, which includes automated exposure control, adjustment of the mA and/or kV according to patient size and/or use of iterative reconstruction technique. FINDINGS: Lower lungs are clear. Abdomen: The liver is normal in appearance. There is no biliary dilatation. Gallbladder is normal in appearance. The pancreas and spleen are normal in appearance. The adrenal glands and kidneys are unremarkable. Abdominal aorta is normal in course and caliber without aneurysm. There is no free air. There is no retroperitoneal adenopathy. Pelvis: There is no bowel obstruction. Urinary bladder is unremarkable. There is no free fluid. Uterus is normal in size. Appendix is normal. Skeleton: There are no acute osseous findings. No suspicious bony lesions. IMPRESSION: No acute process.
[2019-10-23] MEDS ORDERED: KETOROLAC TROMETHAMINE INJ/PF 30 MG/1 ML SDV IV ONE (03:18)
[2019-10-23] MEDS ORDERED: DOCUSATE SODIUM 100 MG CAPSULE PO ONE (03:19)
[2019-10-23 03:43] VITALS: BP 133/69
== END 2019-10-23 03:46 | disposition home or self-care (01) ==
LOC: ER 21:48
DX: R10.31 Right lower quadrant pain (principal); R10.813 Right lower quadrant abdominal tenderness; R10.811 Right upper quadrant abdominal tenderness; R11.0 Nausea; E11.65 Type 2 diabetes mellitus with hyperglycemia; F17.200 Nicotine dependence, unspecified, uncomplicated; I10 Essential (primary) hypertension; J44.9 Chronic obstructive pulmonary disease, unspecified; Z88.6 Allergy status to analgesic agent; Z88.8 Allergy status to other drugs, medicaments and biological substances
CPT/HCPCS: 99284; 96361; 96374; 96375; 36415; 82962; 83690; 85025; 80076; 80048; 81001; 74177; A9270 ×2; J3010; J1885; J2270; J2405; J7030 ×2; J1815

== ENCOUNTER 2020-07-01 20:26 | Inpatient (IN) | payer MEDICARE ==
--- NOTE | 2020-07-01 21:12 | ER Document Report ---
ED Medical Screen (RME) - General Chief Complaint: Foot Pain Stated Complaint: FOOT AND LEG PAIN Time Seen by Provider: 07/01/20 21:07 Primary Care Provider: TAY SHAW PA-C [Primary Care Provider] - Follow up as needed Mode of Arrival: Ambulatory Information source: Patient Notes: 49-year-old female presents to ED for ulcers to the second toe on both feet. She is diabetic. Both feet are red. She states it is not healing it is getting worse. We will get blood work and x-ray of both feet. She states her blood sugars been running in the 200s or higher. Patient is alert oriented respirations regular nonlabored speaking in full sentences. I have greeted and performed a rapid initial assessment of this patient. A comprehensive ED assessment and evaluation of the patient, analysis of test results and completion of medical decision making process will be conducted by an additional ED providers. TRAVEL OUTSIDE OF THE [place] IN LAST 30 DAYS: No - Related Data Allergies/Adverse Reactions: duloxetine [From Cymbalta] Allergy (Verified 07/01/20 21:02) vortioxetine [From Trintellix] Allergy (Verified 07/01/20 21:02) Past Medical History - Past Medical History Cardiac Medical History: Reports: Hx Hypercholesterolemia, Hx Hypertension Pulmonary Medical History: Reports: Hx COPD Neurological Medical History: Reports: Hx Migraine Endocrine Medical History: Reports: Hx Diabetes Mellitus Type 2, Hx Hypothyroidism Renal/ Medical History: Denies: Hx Peritoneal Dialysis GI Medical History: Reports: Hx Gastroesophageal Reflux Disease Musculoskeltal Medical History: Reports Hx Arthritis, Reports Hx Musculoskeletal Deformity, Reports Hx Musculoskeletal Trauma Psychiatric Medical History: Reports: Hx Depression Past Surgical History: Reports: Hx Gynecologic Surgery - Uterine ablation and, Hx Orthopedic Surgery - Neck surgery, Hx Tubal Ligation - Immunizations Immunizations up to date: Yes Physical Exam - Vital signs Vitals: Temp Pulse Resp BP Pulse Ox 98 F 118 H 20 149/82 H 97 07/01/20 20:31 07/01/20 20:31 07/01/20 20:31 07/01/20 20:31 07/01/20 20:31 Course - Vital Signs Vital signs: Temp Pulse Resp BP Pulse Ox 98 F 118 H 20 149/82 H 97 07/01/20 20:31 07/01/20 20:31 07/01/20 20:31 07/01/20 20:31 07/01/20 20:31 Doctor's Discharge - Discharge Referrals: TAY SHAW PA-C [Primary Care Provider] - Follow up as needed
--- NOTE | 2020-07-01 22:21 | RADIOLOGY REPORT (SQ) ---
EXAM DESCRIPTION: XR FOOT 3 OR MORE VIEWS BILATERAL COMPLETED DATE/TME: 07/01/2020 21:08 CLINICAL HISTORY: 49 years, Female, Diabetic ulcers COMPARISON: 12/26/2018 right foot NUMBER OF VIEWS: 3 TECHNIQUE: 3 views right foot LIMITATIONS: None. FINDINGS: Soft tissue swelling and ulceration of the distal aspect of the second digit. No underlying acute osseous abnormality. Negative for fracture or dislocation. IMPRESSION: Soft tissue ulceration of the second digit. No acute osseous abnormality copyright 2010 [employer]- All Rights Reserved
[2020-07-01 22:30] LABS: ABSOLUTE BASOPHILS # (AUTO) 0.1 10^3/uL (0.0-0.2); ABSOLUTE EOSINOPHILS # (AUTO) 0.1 10^3/uL (0.0-0.6); ABSOLUTE LYMPHOCYTES (AUTO) 2.6 10^3/uL (0.5-4.7); ABSOLUTE MONOCYTES (AUTO) 0.8 10^3/uL (0.1-1.4); ABSOLUTE NEUT (AUTO) 7.7 10^3/uL (1.7-8.2); BASOPHILS % (AUTO) 1.1 % (0-2); EOSINOPHILS % (AUTO) 1.1 % (0-6); HEMATOCRIT 43.8 % (36.0-47.0); HEMOGLOBIN 14.6 g/dL (12.0-15.5); LYMPHOCYTES % (AUTO) 22.7 % (13-45); MEAN CORPUSCULAR HEMOGLOBIN 29.8 pg (27.0-33.4); MEAN CORPUSCULAR HGB CONC 33.4 g/dL (32.0-36.0); MEAN CORPUSCULAR VOLUME 89 fl (80-97); MONOCYTES % (AUTO) 6.9 % (3-13); PLATELET COUNT 510 10^3/uL (150-450); RED CELL DISTRIBUTION WIDTH 13.5 % (11.5-14.0); SEGMENTED NEUTROPHILS % (AUTO) 68.2 % (42-78); TOTAL CELLS COUNTED % (AUTO) 100 %; WHITE BLOOD COUNT 11.2 10^3/uL (4.0-10.5)
[2020-07-01 22:41] LABS: ALBUMIN 4.2 g/dL (3.5-5.0); ALKALINE PHOSPHATASE 114 U/L (38-126); ANION GAP 9 (5-19); ASPARTATE AMINO TRANSFERASE 21 U/L (14-36); BILIRUBIN,DIRECT 0.2 mg/dL (0.0-0.4); BILIRUBIN,TOTAL 0.2 mg/dL (0.2-1.3); BLOOD UREA NITROGEN 15 mg/dL (7-20); C-REACTIVE PROTEIN 14.7 mg/L (<10.0); CALCIUM 9.6 mg/dL (8.4-10.2); CARBON DIOXIDE 24 mmol/L (22-30); CHLORIDE 102 mmol/L (98-107); GLUCOSE 330 mg/dL (75-110); POTASSIUM 4.6 mmol/L (3.6-5.0); TOTAL PROTEIN 7.4 g/dL (6.3-8.2)
[2020-07-01 23:22] LABS: ERYTHROCYTE SEDIMENTATION RATE 18 mm/hr (0-30)
[2020-07-02] MEDS ORDERED: NORMAL SALINE 1000 ML 1,000 ML IV ONE (03:48)
[2020-07-02] MEDS ORDERED: CLINDAMYCIN 300 MG/D5W RTU 300 MG/50 ML RTUPB IV ONE (03:48)
--- NOTE | 2020-07-02 03:52 | ER Document Report ---
ED Extremity Problem, Lower - General Chief Complaint: Wound Infection Stated Complaint: FOOT AND LEG PAIN Time Seen by Provider: 07/01/20 21:07 Mode of Arrival: Ambulatory Notes: Patient is a 49-year-old insulin-dependent diabetic who presents the emergency department with a chief complaint of right second toe pain and redness. Patient states that she noticed it about 4 to 5 days ago. Patient states that she atte mpted to cut her toenails. Patient also states that she has a "picking disorder." States that she has not seen a surgeon for her diabetic sores. States that she has neuropathy. TRAVEL OUTSIDE OF THE [place] IN LAST 30 DAYS: No - Related Data Allergies/Adverse Reactions: duloxetine [From Cymbalta] Allergy (Verified 07/01/20 21:02) vortioxetine [From Trintellix] Allergy (Verified 07/01/20 21:02) Past Medical History - General Information source: Patient - Social History Smoking Status: Former Smoker Frequency of alcohol use: None Drug Abuse: None Family History: Reviewed & Not Pertinent - Past Medical History Cardiac Medical History: Reports: Hx Hypercholesterolemia, Hx Hypertension Pulmonary Medical History: Reports: Hx COPD Neurological Medical History: Reports: Hx Migraine Endocrine Medical History: Reports: Hx Diabetes Mellitus Type 2, Hx Hypothyroidism Renal/ Medical History: Denies: Hx Peritoneal Dialysis GI Medical History: Reports: Hx Gastroesophageal Reflux Disease Musculoskeletal Medical History: Reports Hx Arthritis, Reports Hx Mu sculoskeletal Deformity, Reports Hx Musculoskeletal Trauma Psychiatric Medical History: Reports: Hx Depression Past Surgical History: Reports: Hx Gynecologic Surgery - Uterine ablation and, Hx Orthopedic Surgery - Neck surgery, Hx Tubal Ligation - Immunizations Immunizations up to date: Yes Review of Systems - Review of Systems Notes: REVIEW OF SYSTEMS: CONSTITUTIONAL : Denies recent illness. Denies recent unintentional weight loss. Denies fever, chills, or sweats. EENT: Denies eye, ear, throat, or mouth pain, discharge, or symptoms. Denies nasal or sinus congestion. CARDIOVASCULAR: Denies chest pain. RESPIRATORY: Denies shortness of breath, cough, congestion, difficulty breathing, or wheezing. GASTROINTESTINAL: Denies nausea, vomiting, and diarrhea. Denies abdominal pain. Denies constipation. GENITOURINARY: Denies difficulty urinating, burning, blood in urine, urgency or frequency. MUSCULOSKELETAL: Denies neck and back pain. See HPI. SKIN: See HPI. HEMATOLOGIC : Denies easy bruising or bleeding. LYMPHATIC: Denies swollen, painful, enlarged glands. NEUROLOGICAL: Denies no numbness or tingling denies weakness. Denies headache. Denies altered mental status. Denies alteration in speech. PSYCHIATRIC: Denies stress, anxiety, alteration in sleep patterns, or depression. All other systems reviewed and negative. Physical Exam - Vital signs Vitals: Temp Pulse Resp BP Pulse Ox 98 F 118 H 20 149/82 H 97 07/01/20 20:31 07/01/20 20:31 07/01/20 20:31 07/01/20 20:31 07/01/20 20:31 - Notes Notes: PHYSICAL EXAMINATION: GENERAL: Appears well, healthy, well-nourished, no acute distress. HEAD: Normocephalic, atraumatic. EYES: PERRL, conjunctiva normal, all extraocular movements intact, sclera nonicteric ENT: Moist mucous membranes. NECK: Supple, no noticeable swelling, redness, rash. Normal range of motion. LUNGS: Equal breath sounds bilaterally and clear to auscultation. No wheezes rales or rhonchi. CARDIOVASCULAR: S1-S2, regular rate, regular rhythm. Radial pulses 2+, normal. ABDOMEN: Normoactive bowel sounds. Soft, nontender, no guarding, no rebound tenderness, and no masses palpated. EXTREMITIES: Normal strength and range of motion, no pitting or edema. No cyanosis. NEUROLOGICAL: Moves all extremities upon command. Strength 5/5 in all extremities. PSYCH: Normal mood, normal affect. SKIN: Warm, dry. No rash, lesions, ulcerations noted. Normal skin turgor. Erythematous bilateral second digits. Streaking noted up right leg. Diabetic foot ulcer noted to right second toe. Course - Re-evaluation Re-evalutation: 07/02/20 03:52 Hematology shows a leukocytosis of 11,200. 07/02/20 03:[address] Jung, the surgeon occupational health professional. He will consult the patient. I will call the medicine service. 07/02/20 04:[address] Palma, the patient will be admitted to the surgical floor. - Vital Signs Vital signs: Temp Pulse Resp BP Pulse Ox 98.4 F 99 18 150/71 H 99 07/02/20 00:49 07/02/20 00:49 07/02/20 00:49 07/02/20 00:49 07/02/20 00:49 - Laboratory Result Diagrams: 07/01/20 21:56 07/01/20 21:56 Laboratory results interpreted by me: 07/01/20 07/01/20 07/01/20 21:56 21:56 22:01 WBC 11.2 H Plt Count 510 H Sodium 135.2 L Glucose 330 H POC Glucose 297 H C-Reactive Protein 14.7 H 07/02/20 04:23 WBC Plt Count Sodium Glucose POC Glucose 181 H C-Reactive Protein Discharge - Discharge Clinical Impression: Diabetic foot, Cellulitis Condition: Stable Disposition: ADMITTED INPATIENT Admitting Provider: Minerva (Hospitalist) Unit Admitted: Surgical Floor
[2020-07-02] MEDS ORDERED: MAGNESIUM HYDROXIDE SUSP 30 ML UDCUP PO PRN (04:58)
[2020-07-02] MEDS ORDERED: MAG HYDROX/AL HYDROX/SIMETH SUSP 30 ML UDCUP PO PRN (04:58)
[2020-07-02] MEDS ORDERED: LEVALBUTEROL HCL NEB 0.63 MG/3 ML AMPUL NEB PRN (04:58)
[2020-07-02] MEDS ORDERED: PROMETHAZINE HCL INJ 25 MG/1 ML VIAL IV PRN ×3 (04:58→11:28)
[2020-07-02] MEDS ORDERED: CEFEPIME 2 GM/D5W RTU 2 GM/50 ML RTUPB IV ONE (05:00)
[2020-07-02] MEDS ORDERED: LINEZOLID 600 MG/300 ML RTUPB IV ONE ×2 (05:00→05:54)
[2020-07-02] MEDS ORDERED: ACETAMINOPHEN 325 MG TABLET PO PRN (05:03)
[2020-07-02] MEDS ORDERED: MORPHINE SULFATE 10 MG/ML INJ IV PRN ×4 (05:03→05:20)
[2020-07-02] MEDS ORDERED: DEXTROSE 40% GEL 15 GM TUBE PO PRN ×2 (05:03)
[2020-07-02] MEDS ORDERED: LORAZEPAM INJ 2 MG/1 ML VIAL IV PRN (05:03)
[2020-07-02] MEDS ORDERED: GUAIFENESIN SYRP 200 MG/10 ML UDC PO PRN (05:03)
[2020-07-02] MEDS ORDERED: GLUCAGON,HUMAN RECOMB 1 MG INJ IM PRN (05:03)
[2020-07-02] MEDS ORDERED: DEXTROSE 50%-WATER 25 GM/50 ML DISP.SYRIN IV PRN ×2 (05:03)
[2020-07-02] MEDS ORDERED: MELATONIN 5 MG TABLET PO PRN (05:03)
[2020-07-02] MEDS ORDERED: HYDRALAZINE HCL INJ/PF 20 MG/1 ML SDV IV PRN (05:03)
[2020-07-02] MEDS: HEPARIN SOD (PORCINE) 5,000 UNIT/ML 1 ML VIAL SUBCUT SCH ×3 (05:59→21:56)
--- NOTE | 2020-07-02 06:35 | PDOC H&P ---
History of Present Illness Admission Date/PCP: 07/02/20 04:24 TAY SHAW PA-C Patient complains of: Painful right second toe History of Present Illness: RICKIE JOHNSTON is a 49 year old female who presented to the emergency room with a 5-day history of right second toe pain. She admits attempting to cut her toenails about a week ago and since that time she has noticed progressively wo rsening redness, pain and swelling in the right second toe. The redness has started to streak up her foot and ankle. The toe pain is a constant nonradiating moderate to severe throbbing/aching discomfort made worse by movement and weightbearing. She has diabetes mellitus type 2 with peripheral ne uropathy and has experienced previous skin infections with similar symptoms. She has not received prior treatment for this episode. She denies other associated or accompanying signs and symptoms. She has not identified any additional aggravating or ameliorating factors for her toe pain. In the e mergency room she was found to have a blood sugar of 330 and a white blood count of 11,200. Dr. Jung was consulted by the emergency room provider and he insisted that the hospitalist service admit the patient and consult him for surgical management. Past Medical History Cardiac Medical History: Reports: Hyperlipidema, Hypertension Denies: Atrial Fibrillation, Coronary Artery Disease, DVT, Myocardial Infarction, Pulmonary Embolism Pulmonary Medical History: Reports: Chronic Obstructive Pulmonary Disease (COPD) Denies: Asthma, Sleep Apnea EENT Medical History: Denies: Cataracts, Ears - Hearing aids Neurological Medical History: Reports: Migraine Denies: Hemorrhagic CVA, Ischemic CVA, Seizures Endocrine Medical History: Reports: Diabetes Mellitus Type 2, Hypothyroidism, Obesity Denies: Diabetes Mellitus Type 1, Hyperthyroidism Renal/ Medical History: Denies: Chronic Kidney Disease, Nephrolithiasis Malignancy Medical History: Reports: None GI Medical History: Reports: Gastroesophageal Reflux Disease Denies: Cirrhosis, Hepatitis, Peptic Ulcer Disease Musculoskeltal Medical History: Reports: Arthritis Denies: Fibromyalgia, Gout Skin Medical History: 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" Denies: Eczema, Psoriasis Psychiatric Medical History: Reports: Depression, Tobacco Dependency Denies: Alcohol Dependency, Substance Abuse Traumatic Medical History: Reports: None Hematology: Denies: Anemia, Bleeding Tendencies Infectious Medical History: Reports: None Past Surgical History Past Surgical History: Reports: Orthopedic Surgery - Neck surgery, Tubal Ligation Social History Information Source: Patient Lives with: Family Smoking Status: Former Smoker Electronic Cigarette use?: No Frequency of Alcohol Use: None Hx Recreational Drug Use: No Drugs: None Hx Prescription Drug Abuse: No - Advance Directive Resuscitation Status: Full Code Surrogate healthcare decision maker:: Neha Casanova Family History Family History: DM, Hypertension. denies: CAD, Malignancy Parental Family History Reviewed: Yes Children Family History Reviewed: No Sibling(s) Family History Reviewed.: Yes Medication/Allergy Home Medications: Ciprofloxacin HCl [Cipro 500 mg Tablet] 500 mg PO BID #20 tablet 10/23/18 Promethazine HCl [Phenergan 25 mg Tablet] 1 - 2 tab PO Q6H PRN #15 tablet 10/23/18 Cephalexin Monohydrate [Keflex 500 mg Capsule] 500 mg PO QID 14 Days capsule 12/26/18 Doxycycline Hyclate 100 mg PO BID #14 capsule 12/26/18 Hydrocodone/Acetaminophen [[place] 5-325 mg Tablet] 1 - 2 tab PO Q6 PRN #12 tablet 12/26/18 Insulin Glargine,Hum.rec.anlog [Toujeo Solostar] 80 unit SQ DAILY #1 insuln.pen 03/26/19 Insulin Lispro [Humalog Kwikpen U-100] 0 unit SQ ASDIR PRN #1 insuln.pen 03/26/19 Dicyclomine HCl [Bentyl 20 mg Tablet] 20 mg PO QID PRN #20 tablet 10/23/19 Docusate Sodium [Colace 100 mg Capsule] 100 mg PO ASDIR PRN #30 capsule 10/23/19 Promethazine HCl [Phenergan 25 mg Tablet] 25 mg PO Q6H PRN #15 tablet 10/23/19 Allergies/Adverse Reactions: duloxetine [From Cymbalta] Allergy (Verified 07/01/20 21:02) vortioxetine [From Trintellix] Allergy (Verified 07/01/20 21:02) Review of Systems Constitutional: ABSENT: chills, fever(s) Eyes: ABSENT: visual disturbances, other - Eye pain Ears: ABSENT: hearing changes, other - Ear pain Nose, Mouth, and Throat: ABSENT: headache(s), sore throat Cardiovascular: ABSENT: chest pain, palpitations Respiratory: ABSENT: cough, dyspnea Gastrointestinal: ABSENT: abdominal pain, constipation, diarrhea, nausea, vomiting Genitourinary: ABSENT: dysuria, hematuria Musculoskeletal: ABSENT: back pain, joint swelling, muscle weakness Integumentary: PRESENT: as per HPI, other - Erythema and edema of right second toe. ABSENT: pruritus, rash Neurological: ABSENT: confusion, convulsions, focal weakness, memory loss, syncope Psychiatric: ABSENT: anxiety, depression Endocrine: ABSENT: cold intolerance, heat intolerance Hematologic/Lymphatic: ABSENT: easy bleeding, easy bruising Allergic/Immunologic: ABSENT: seasonal rhinorrhea Physical Exam Vital Signs: Temp Pulse Resp BP Pulse Ox 98.4 F 99 18 150/71 H 99 07/02/20 00:49 07/02/20 00:49 07/02/20 00:49 07/02/20 00:49 07/02/20 00:49 Intake & Output 06/30/20 07/01/20 07/02/20 23:59 23:59 23:59 Weight 105 kg General appearance: PRESENT: no acute distress, cooperative, obese Head exam: PRESENT: atraumatic, normocephalic Eye exam: PRESENT: conjunctiva pink. ABSENT: conjunctival injection, scleral icterus Ear exam: PRESENT: normal external ear exam. ABSENT: bleeding, drainage Mouth exam: PRESENT: dry mucosa, neck supple Neck exam: ABSENT: thyromegaly, tracheal deviation Respiratory exam: PRESENT: clear to auscultation anjelica, symmetrical, unlabored Cardiovascular exam: PRESENT: RRR. ABSENT: clicks, gallop, rubs Pulses: PRESENT: normal radial pulses, normal dorsalis pedis pul Vascular exam: PRESENT: normal capillary refill. ABSENT: pallor GI/Abdominal exam: PRESENT: normal bowel sounds, soft. ABSENT: tenderness Rectal exam: PRESENT: deferred Extremities exam: PRESENT: tenderness - Erythema, edema and tenderness of right second toe with obvious lymphangitis involving the dorsum of the foot and ankle. Superficial ulceration of the distal toe is noted.. ABSENT: joint swelling, pedal edema Musculoskeletal exam: ABSENT: deformity, dislocation Neurological exam: PRESENT: alert, oriented to person, oriented to place, oriented to time, oriented to situation, CN II-XII grossly intact. ABSENT: motor sensory deficit Psychiatric exam: PRESENT: appropriate affect, normal mood Skin exam: PRESENT: dry, erythema - Erythema, edema and tenderness of right second toe with obvious lymphangitis involving the dorsum of the foot and ankle. Superficial ulceration of the distal toe is noted., warm, other - Multiple "pickers abrasions" noted on all extremities. ABSENT: jaundice, rash, urticaria Results Laboratory Results: 07/01/20 21:56 07/01/20 21:56 07/01/20 07/01/20 21:56 21:56 WBC 11.2 H RBC 4.90 Hgb 14.6 Hct 43.8 MCV 89 MCH 29.8 MCHC 33.4 RDW 13.5 Plt Count 510 H Seg Neutrophils % 68.2 Sodium 135.2 L Potassium 4.6 Chloride 102 Carbon Dioxide 24 Anion Gap 9 BUN 15 Creatinine 0.69 Est GFR ( Amer) > 60 Glucose 330 H Calcium 9.6 Total Bilirubin 0.2 AST 21 Alkaline Phosphatase 114 C-Reactive Protein 14.7 H Total Protein 7.4 Albumin 4.2 Impressions: Foot X-Ray 07/01/20 21:08 IMPRESSION: Soft tissue ulceration of the second digit. No acute osseous abnormality copyright 2010 [employer]- All Rights Reserved Assessment and Plan - Diagnosis (1) Cellulitis of second toe, right Is this a current diagnosis for this admission?: Yes (2) Lymphangitis Is this a current diagnosis for this admission?: Yes (3) Leukocytosis, unspecified Qualifiers: Leukocytosis type: unspecified Qualified Code(s): D72.829 - Elevated white blood cell count, unspecified Is this a current diagnosis for this admission?: Yes (4) Diabetes mellitus type 2 in obese Is this a current diagnosis for this admission?: Yes (5) Hypertension Qualifiers: Hypertension type: essential hypertension Qualified Code(s): I10 - Essen tial (primary) hypertension Is this a current diagnosis for this admission?: Yes (6) Hyperlipidemia Qualifiers: Hyperlipidemia type: unspecified Qualified Code(s): E78.5 - Hyperlipidemia, unspecified Is this a current diagnosis for this admission?: Yes (7) Hypothyroidism Qualifiers: Hypothyroidism type: unspecified Qualified Code(s): E03.9 - Hypothyroidism, unspecified Is this a current diagnosis for this admission?: Yes - Plan Summary Summary: Patient will be admitted to the surgical floor where she will receive routine supportive and symptomatic cares. Dr. Jung will be consulted per his request for surgical management of the patient. She will be treated with IV antibiotics utilizing Zyvox and cefepime. Blood cultures are pending. She will receive morphine sulfate 2 to 4 mg IV every 2 hours as needed for pain. She will receive Ativan 1 mg IV every 4 hours as needed for anxiety or restlessness. Before meals and at bedtime Accu-Cheks to be performed with sliding scale insulin for hyperglycemia and a hypoglycemic protocol in place. Patient will receive a diabetic and cardiac restricted diet. CBCs, metabolic profiles and additional laboratory and/or radiographic evaluations will be obtained as needed. Patient's usual home medications will be restarted, as appropriate, when her medication list has been verified and reconciled. - Time Time Spent with patient: 15-24 minutes Medications reviewed and adjusted accordingly: Yes Anticipated Discharge Disposition: Home with Home Health Anticipated Discharge Timeframe: Undetermined - Inpatient Certification Based on my medical assessment, after consideration of the patient's comorbidities, presenting symptoms, or acuity I expect that the services needed warrant INPATIENT care.: Yes I certify that my determination is in accordance with my understanding of Medicare's requirements for reasonable and necessary INPATIENT services [42 CFR 412.3e].: Yes Medical Necessity: Significant Comorbidiites Make Outpatient Treatment Too Risky, Need for IV Antibiotics
[2020-07-02] MEDS ORDERED: INSULIN REG, HUMAN 100 UNIT/ML 3 ML VIAL (PYX) SUBCUT SCH (08:00)
--- NOTE | 2020-07-02 08:00 | PDOC CONSULTATION ---
Consultation Consult Date: 07/02/20 Provider Consulted: SURGICAL SURGICALIST MD Consult reason:: diabetic foot infection History of Present Illness Admission Date/PCP: 07/02/20 04:24 TAY SHAW PA-C History of Present Illness: RICKIE JOHNSTON is a 49 year old female seen in consultation at the request of the hospitalist service. This is an uncontrolled diabetic female with a several day history of pain, swelling, and now purulent drainage of the right second toe. She has an ulceration to the distal, plantar surface of the toe. She reports that the toe became hot, red, and painful. She reports the pain is a throbbing sensation. She rates her pain is 5 out of 10. She does suffer from diabetic neuropathy. She does smoke every day. She does not check her sugars at home. On presentation to the ER her glucose was greater than 300. Currently she denies fevers, chills, chest pain, abdominal pain, nausea, vomiting, dizziness, orthostasis, blurry vision, shortness of breath, malaise, fatigue. Past Medical History Cardiac Medical History: Reports: Hyperlipidema, Hypertension Denies: Atrial Fibrillation, Coronary Artery Disease, DVT, Myocardial Infarction, Pulmonary Embolism Pulmonary Medical History: Reports: Chronic Obstructive Pulmonary Disease (COPD) Denies: Asthma, Sleep Apnea EENT Medical History: Denies: Cataracts, Ears - Hearing aids Neurological Medical History: Reports: Migraine Denies: Hemorrhagic CVA, Ischemic CVA, Seizures Endocrine Medical History: Reports: Diabetes Mellitus Type 2, Hypothyroidism, Obesity Denies: Diabetes Mellitus Type 1, Hyperthyroidism Renal/ Medical History: Denies: Chronic Kidney Disease, Nephrolithiasis Malignancy Medical History: Reports: None GI Medical History: Reports: Gastroesophageal Reflux Disease Denies: Cirrhosis, Hepatitis, Peptic Ulcer Disease Musculoskeltal Medical History: Reports: Arthritis Denies: Fibromyalgia, Gout Skin Medical History: 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" Denies: Eczema, Psoriasis Psychiatric Medical History: Reports: Depression, Tobacco Dependency Denies: Alcohol Dependency, Substance Abuse Traumatic Medical History: Reports: None Hematology: Denies: Anemia, Bleeding Tendencies Infectious Medical History: Reports: None Past Surgical History Past Surgical History: Reports: Orthopedic Surgery - Neck surgery, Tubal Ligation Social History Lives with: Family Smoking Status: Current Every Day Smoker Electronic Cigarette use?: Yes Frequency of Alcohol Use: None Hx Recreational Drug Use: No Drugs: None Hx Prescription Drug Abuse: No - Advance Directive Resuscitation Status: Full Code Family History Family History: DM, Hypertension. denies: CAD, Malignancy Parental Family History Reviewed: Yes Children Family History Reviewed: Yes Sibling(s) Family History Reviewed.: Yes Medication/Allergy Home Medications: Ciprofloxacin HCl [Cipro 500 mg Tablet] 500 mg PO BID #20 tablet 10/23/18 Promethazine HCl [Phenergan 25 mg Tablet] 1 - 2 tab PO Q6H PRN #15 tablet 10/23/18 Cephalexin Monohydrate [Keflex 500 mg Capsule] 500 mg PO QID 14 Days capsule 12/26/18 Doxycycline Hyclate 100 mg PO BID #14 capsule 12/26/18 Hydrocodone/Acetaminophen [[place] 5-325 mg Tablet] 1 - 2 tab PO Q6 PRN #12 tablet 12/26/18 Insulin Glargine,Hum.rec.anlog [Toujeo Solostar] 80 unit SQ DAILY #1 insuln.pen 03/26/19 Insulin Lispro [Humalog Kwikpen U-100] 0 unit SQ ASDIR PRN #1 insuln.pen 03/26/19 Dicyclomine HCl [Bentyl 20 mg Tablet] 20 mg PO QID PRN #20 tablet 10/23/19 Docusate Sodium [Colace 100 mg Capsule] 100 mg PO ASDIR PRN #30 capsule 10/23/19 Promethazine HCl [Phenergan 25 mg Tablet] 25 mg PO Q6H PRN #15 tablet 10/23/19 Allergies/Adverse Reactions: duloxetine [From Cymbalta] Allergy (Verified 07/01/20 21:02) vortioxetine [From Trintellix] Allergy (Verified 07/01/20 21:02) Review of Systems Constitutional: ABSENT: anorexia, chills, fatigue Eyes: ABSENT: visual disturbances Ears: ABSENT: hearing changes Nose, Mouth, and Throat: ABSENT: sore throat Cardiovascular: ABSENT: chest pain Respiratory: ABSENT: cough, dyspnea Gastrointestinal: ABSENT: abdominal pain, bloating Genitourinary: ABSENT: dysuria Musculoskeletal: ABSENT: back pain Integumentary: PRESENT: erythema - Right second toe, lesions - Right second toe ulceration with purulent drainage, wounds - Right second toe ulceration with purulent drainage Neurological: PRESENT: numbness - Peripheral lower extremity neuropathy. ABSENT: confusion, convulsions, dizziness Psychiatric: PRESENT: anxiety, depression Endocrine: ABSENT: cold intolerance, heat intolerance Hematologic/Lymphatic: ABSENT: easy bleeding, easy bruising Physical Exam Vital Signs: Temp Pulse Resp BP Pulse Ox 98.4 F 99 18 150/71 H 99 07/02/20 00:49 07/02/20 00:49 07/02/20 00:49 07/02/20 00:49 07/02/20 00:49 Intake & Output 07/01/20 07/02/20 07/03/20 06:59 06:59 06:59 Intake Total 100 Balance 100 Weight 105 kg General appearance: PRESENT: no acute distress, cooperative Head exam: PRESENT: atraumatic, normocephalic Eye exam: PRESENT: EOMI, PERRLA. ABSENT: scleral icterus Mouth exam: PRESENT: moist, neck supple Neck exam: ABSENT: meningismus, tenderness, thyromegaly, tracheal deviation Respiratory exam: PRESENT: unlabored. ABSENT: tachypnea, wheezes Cardiovascular exam: ABSENT: tachycardia Vascular exam: PRESENT: other - Palpable DP and PT on the right side. No palpable distal pulses on the left foot. GI/Abdominal exam: PRESENT: soft. ABSENT: distended, tenderness Rectal exam: PRESENT: deferred Extremities exam: PRESENT: other - Multiple small ulcerations over her entire bilateral lower extremities. Large, deep ulceration on the distal right second toe. Purulent material emanating from the right second toe. Significant erythema of the right second toe, extending to the MTP joint. Musculoskeletal exam: ABSENT: deformity Neurological exam: PRESENT: alert, awake, oriented to person, oriented to place, oriented to time, CN II-XII grossly intact, motor sensory deficit - Lower extremity peripheral neuropathy Psychiatric exam: PRESENT: anxious. ABSENT: agitated, depressed Focused psych exam: ABSENT: delusional Skin exam: PRESENT: erythema - See extremity exam. ABSENT: cyanosis, jaundice Results Laboratory Results: 07/01/20 21:56 07/01/20 21:56 07/01/20 07/01/20 07/01/20 21:56 21:56 21:56 WBC 11.2 H RBC 4.90 Hgb 14.6 Hct 43.8 MCV 89 MCH 29.8 MCHC 33.4 RDW 13.5 Plt Count 510 H Seg Neutrophils % 68.2 Sodium 135.2 L Potassium 4.6 Chloride 102 Carbon Dioxide 24 Anion Gap 9 BUN 15 Creatinine 0.69 Est GFR ( Amer) > 60 Glucose 330 H Calcium 9.6 Total Bilirubin 0.2 AST 21 Alkaline Phosphatase 114 C-Reactive Protein 14.7 H Total Protein 7.4 Albumin 4.2 Free T4 0.85 Impressions: Foot X-Ray 07/01/20 21:08 IMPRESSION: Soft tissue ulceration of the second digit. No acute osseous abnormality copyright 2010 [employer]- All Rights Reserved Assessment & Plan - Diagnosis (1) Diabetic foot Is this a current diagnosis for this admission?: Yes - Plan Summary Plan Summary: 49-year-old female with a severe diabetic foot infection. Her right second toe is emanating purulent material. The ulcerated lesion to the toe is large. The erythema extends to the MTP joint. I suspect the patient will require amputation of the second toe, to resolve her severe diabetic foot infection. Maintain tight glucose control. Keep patient n.p.o. Plan for surgical intervention later today. This has been discussed with the patient at length. She is in agreement with the treatment plan. Risks/benefits discussed, informed consent obtained, and all questions answered.
[2020-07-02 09:47] LABS: URINE AMPHETAMINES SCREEN NEGATIVE; URINE BENZODIAZEPINES SCREEN NEGATIVE; URINE COCAINE SCREEN NEGATIVE; URINE MARIJUANA (THC) SCREEN NEGATIVE; URINE METHADONE SCREEN NEGATIVE; URINE PHENCYCLIDINE SCREEN NEGATIVE
[2020-07-02 09:49] LABS: URINE BARBITURATES SCREEN UNCONFIRMED POSITIVE
[2020-07-02] MEDS ORDERED: CEFEPIME 2 GM/D5W RTU 2 GM/50 ML RTUPB IV SCH ×2 (10:00→18:00)
[2020-07-02] MEDS ORDERED: PROPOFOL INJ 200 MG/20 ML VIAL IV ONE (10:35)
[2020-07-02] MEDS ORDERED: MIDAZOLAM 2 MG/2 ML INJ ONE (10:36)
[2020-07-02] MEDS ORDERED: FENTANYL CITRATE INJ/PF 100 MCG/2 ML AMPUL ONE (10:36)
[2020-07-02] MEDS ORDERED: ONDANSETRON HCL INJ/PF 4 MG/2 ML SDV ONE (10:36)
[2020-07-02] MEDS ORDERED: LIDOCAINE 1% INJ-PF (10 MG/ML) 30 ML SDV ONE (10:38)
[2020-07-02] MEDS ORDERED: DIPHENHYDRAMINE HCL 50 MG/ML VIAL IV PRN (11:28)
[2020-07-02] MEDS ORDERED: OXYCODONE-ACETAMINOPHEN 5-325 MG TABLET PO PRN (11:28)
[2020-07-02] MEDS ORDERED: FENTANYL CITRATE INJ/PF 100 MCG/2 ML AMPUL IV PRN ×3 (11:28)
--- NOTE | 2020-07-02 11:54 | Operative Report ---
Operative Report DATE OF SURGERY: 07/02/20 PREOPERATIVE DIAGNOSIS: 1. Infected diabetic right second toe. 2. Psychogenic pruritus. 3. Smoker POSTOPERATIVE DIAGNOSIS: Same; rule out peripheral vascular disease left lower extremity OPERATION: Amputation right second ray with delayed primary closure suture placement SURGEON: BONG KEITH ANESTHESIA: LMAC TISSUE REMOVED OR ALTERED: Second toe COMPLICATIONS: None ESTIMATED BLOOD LOSS: Minimal INTRAOPERATIVE FINDINGS: See below PROCEDURE: The patient was taken the preop holding area to the main operating room where LMAC anesthesia was induced. The right foot was prepped and draped with Betadine. Surgical plan and surgical timeout were conducted. The right base of the second toe was anesthetized 1% plain lidocaine. The toe was amputated with a 15 blade. The entire phalanx, and the distal second metatarsal head were removed with bone cutter and rongeur. Eating from bone was acceptable. The digital artery and vein on the normal side was cauterized and the digital vein on the medial side was cauterized. And and tendons trimmed with Blackman scissors. Wound irrigated with saline copiously. No pus identified. No culture sent. 4 interrupted 3 oh vertical mattress sutures were placed into position to close the wound transversely in a delayed primary closure fashion. Small piece of Xeroform was placed in the recess of the wound, and another piece placed over the coiled up the sutures. 4 x 4's placed between the toes, Kerlix wrap applied. Patient tolerated procedure well. Plan: 1. Leg elevation; continue IV antibiotic therapy 2. Due to coolness of the left lower extremity, we will obtain arterial duplex study of lower extremities to rule out peripheral vascular disease involving the left lower extremity; conversely, full exam findings may be due to RSD 3. Discussed the above with patient's daughter on the phone after the operation 4. We will follow patient with you, and hopefully closed wound at bedside in 48 to 72 hours.
[2020-07-02] MEDS ORDERED: (PENDING PHARMACY ID) (Topiramate [Topiramate] 50 MG) PO SCH (14:00)
[2020-07-02] MEDS: DOCUSATE SODIUM 100 MG CAPSULE PO SCH ×2 (14:24→17:31)
[2020-07-02] MEDS: FAMOTIDINE 20 MG TABLET PO SCH ×2 (14:24→21:57)
[2020-07-02] MEDS: GABAPENTIN 300 MG CAPSULE PO SCH ×3 (14:33→21:56)
[2020-07-02] MEDS: RINGERS SOLUTION,LACTATED 1,000 ML IV PRN (14:34)
[2020-07-02] MEDS: MORPHINE SULFATE 10 MG/ML INJ IV PRN ×4 (14:34→22:05)
--- NOTE | 2020-07-02 17:20 | PDOC PROGRESS REPORT ---
Subjective Progress Note for:: 07/02/20 Subjective:: Patient is a 49-year-old female with a past medical history of hypertension, hyperlipidemia, migraines, DM 2, hypothyroidism, obesity, arthritis, depression and tobacco dependency who was admitted 07/02/2020 with cellulitis of the right foot secondary to diabetic foot wound. Patient was seen on afternoon rounds following return from the OR after undergoing a right second toe amputation by Dr. Paul. Patient reports slight foot pain, although, overall controlled with current medication regiment. Otherwise, she reports that she is feeling well. She denies fever, chills, chest pain, palpitations, dyspnea, orthopnea, abdominal pain, nausea vomiting diarrhea. She has no questions or concerns at this time. No concerns per nursing. Reason For Visit: CELLULITIS RIGHT SECOND TOE Physical Exam Vital Signs: Temp Pulse Resp BP Pulse Ox 97.8 F 76 13 129/58 H 95 07/02/20 12:13 07/02/20 12:13 07/02/20 12:13 07/02/20 12:13 07/02/20 12:13 Intake & Output 07/01/20 07/02/20 07/03/20 06:59 06:59 06:59 Intake Total 100 2100 Output Total 20 Balance 100 2080 Weight 105 kg General appearance: PRESENT: no acute distress, cooperative, obese, well- developed, well-nourished Head exam: PRESENT: atraumatic, normocephalic Eye exam: PRESENT: conjunctiva pink, EOMI, PERRLA. ABSENT: scleral icterus Mouth exam: PRESENT: moist, tongue midline Respiratory exam: PRESENT: clear to auscultation anjelica, symmetrical, unlabored. ABSENT: rales, rhonchi, wheezes Cardiovascular exam: PRESENT: RRR, +S1, +S2. ABSENT: diastolic murmur, rubs, systolic murmur Vascular exam: PRESENT: normal capillary refill Extremities exam: PRESENT: full ROM. ABSENT: calf tenderness, clubbing, pedal edema Neurological exam: PRESENT: alert, awake, oriented to person, oriented to place, oriented to time, oriented to situation, CN II-XII grossly intact. ABSENT: motor sensory deficit Psychiatric exam: PRESENT: appropriate affect, normal mood. ABSENT: homicidal ideation, suicidal ideation Skin exam: PRESENT: dry, erythema, warm, other - s/p Rt 2nd toe amputation; surgical dressing in place, wound not visualized. Erythema to right foot. Erythema and edema to Lt 2-5 toes. Numerous "boarder steam abrasions" all extremities.. ABSENT: cyanosis, rash Results Laboratory Results: 07/01/20 21:56 07/01/20 21:56 07/01/20 07/01/20 07/01/20 21:56 21:56 21:56 WBC 11.2 H RBC 4.90 Hgb 14.6 Hct 43.8 MCV 89 MCH 29.8 MCHC 33.4 RDW 13.5 Plt Count 510 H Seg Neutrophils % 68.2 Sodium 135.2 L Potassium 4.6 Chloride 102 Carbon Dioxide 24 Anion Gap 9 BUN 15 Creatinine 0.69 Est GFR ( Amer) > 60 Glucose 330 H Calcium 9.6 Total Bilirubin 0.2 AST 21 Alkaline Phosphatase 114 C-Reactive Protein 14.7 H Total Protein 7.4 Albumin 4.2 Free T4 0.85 Impressions: Foot X-Ray 07/01/20 21:08 IMPRESSION: Soft tissue ulceration of the second digit. No acute osseous abnormality copyright 2010 [employer]- All Rights Reserved Assessment and Plan - Diagnosis (1) Cellulitis of second toe, right Is this a current diagnosis for this admission?: Yes Plan: s/p Rt 2nd toe amputation by Dr. Oconnell Pathology pending Blood cultures pending. Patient is admitted to the medical floor. Continue empiric Zyvox and cefepime. Analgesics as needed. (2) Diabetes mellitus type 2 in obese Is this a current diagnosis for this admission?: Yes Plan: Holding oral medications while admitted. We will check A1c with a.m. lab work. Patient is placed on a consistent carb diet. Accu-Cheks before meals and at bedtime with Humalog for sliding scale coverage. Hypoglycemia protocol in place. Registered dietitian natural resources extension educator consulted. (3) Hyperlipidemia Qualifiers: Hyperlipidemia type: unspecified Qualified Code(s): E78.5 - Hyperlipidemia, unspecified Is this a current diagnosis for this admission?: Yes Plan: Home dose statin. Cardiac/consistent carb diet. (4) Hypertension Qualifiers: Hypertension type: essential hypertension Qualified Code(s): I10 - Essential (primary) hypertension Is this a current diagnosis for this admission?: Yes Plan: Acceptable blood pressures at present. Advised for acceptable pain management. Continue home dose clonidine and losartan IV hydralazine for BP control. Cardiac diet. (5) Hypothyroidism Qualifiers: Hypothyroidism type: unspecified Qualified Code(s): E03.9 - Hypothyroidism, unspecified Is this a current diagnosis for this admission?: Yes Plan: Patient reports history of hypothyroidism. Does not appear to be on medication. TSH pending (6) Leukocytosis, unspecified Qualifiers: Leukocytosis type: unspecified Qualified Code(s): D72.829 - Elevated white blood cell count, unspecified Is this a current diagnosis for this admission?: Yes Plan: Secondary to #1 Management as above. (7) Lymphangitis Is this a current diagnosis for this admission?: Yes Plan: Secondary to #1 Management as above. - Time Time Spent with patient: 25-34 minutes Anticipated Discharge Disposition: Home, Self Care Anticipated Discharge Timeframe: within 72 hours
[2020-07-02] MEDS: INSULIN LISPRO 100 UNIT/ML 3 ML VIAL SUBCUT SCH ×2 (17:30→21:57)
[2020-07-02] MEDS: LINEZOLID 600 MG/300 ML RTUPB IV SCH (17:30)
[2020-07-02] MEDS: TOPIRAMATE 25 MG TABLET PO SCH ×2 (17:30→23:32)
--- NOTE | 2020-07-02 18:28 | EKG REPORT ---
SEVERITY:- NORMAL ECG - SINUS RHYTHM : Confirmed by: Daniela Buitrago 02-Jul-2020 18:28:14
[2020-07-02] MEDS: CEFEPIME HCL 2 GM in DEXTROSE 5%-WATER 50 ML IV SCH (19:46)
[2020-07-02] MEDS: BUTALB/ACETAMINOPHEN/CAFFEINE 1 TAB EACH PO PRN (21:55)
[2020-07-02] MEDS: ATORVASTATIN CALCIUM 40 MG TABLET PO SCH (21:56)
[2020-07-03] MEDS: MORPHINE SULFATE 10 MG/ML INJ IV PRN ×5 (00:12→12:08)
[2020-07-03] MEDS: RINGERS SOLUTION,LACTATED 1,000 ML IV PRN (03:20)
[2020-07-03] MEDS: CEFEPIME HCL 2 GM in DEXTROSE 5%-WATER 50 ML IV SCH ×2 (05:05→18:36)
[2020-07-03] MEDS: BUTALB/ACETAMINOPHEN/CAFFEINE 1 TAB EACH PO PRN ×2 (05:06→14:15)
[2020-07-03] MEDS: PANTOPRAZOLE SODIUM 40 MG TABLET.DR PO SCH (05:06)
[2020-07-03] MEDS: HEPARIN SOD (PORCINE) 5,000 UNIT/ML 1 ML VIAL SUBCUT SCH ×3 (05:06→22:32)
[2020-07-03] MEDS: TOPIRAMATE 25 MG TABLET PO SCH ×3 (05:07→18:41)
[2020-07-03] MEDS: LINEZOLID 600 MG/300 ML RTUPB IV SCH ×2 (06:10→19:43)
[2020-07-03 07:29] LABS: HEMATOCRIT 43.2 % (36.0-47.0); HEMOGLOBIN 14.4 g/dL (12.0-15.5); MEAN CORPUSCULAR HGB CONC 33.4 g/dL (32.0-36.0); MEAN CORPUSCULAR VOLUME 90 fl (80-97); PLATELET COUNT 422 10^3/uL (150-450); RED BLOOD COUNT 4.81 10^6/uL (3.72-5.28); RED CELL DISTRIBUTION WIDTH 13.4 % (11.5-14.0); WHITE BLOOD COUNT 7.6 10^3/uL (4.0-10.5)
[2020-07-03 07:46] LABS: ALBUMIN 3.7 g/dL (3.5-5.0); ALKALINE PHOSPHATASE 102 U/L (38-126); ANION GAP 8 (5-19); ASPARTATE AMINO TRANSFERASE 23 U/L (14-36); BILIRUBIN,DIRECT 0.3 mg/dL (0.0-0.4); BILIRUBIN,TOTAL 0.4 mg/dL (0.2-1.3); BLOOD UREA NITROGEN 13 mg/dL (7-20); CALCIUM 8.8 mg/dL (8.4-10.2); CARBON DIOXIDE 25 mmol/L (22-30); CHLORIDE 103 mmol/L (98-107); CHOLESTEROL 186.35 mg/dL (0-200); GLUCOSE 254 mg/dL (75-110); POTASSIUM 4.3 mmol/L (3.6-5.0); TOTAL PROTEIN 6.6 g/dL (6.3-8.2)
[2020-07-03 07:57] LABS: DIRECT LDL 64 mg/dL (<100)
[2020-07-03 08:04] LABS: TRIGLYCERIDES 585 mg/dL (<150)
[2020-07-03] MEDS: CLONIDINE HCL 0.1 MG TABLET PO SCH (09:06)
[2020-07-03] MEDS: GABAPENTIN 300 MG CAPSULE PO SCH ×4 (09:06→22:34)
[2020-07-03] MEDS: LOSARTAN POTASSIUM 25 MG TABLET PO SCH (09:06)
[2020-07-03] MEDS: INSULIN LISPRO 100 UNIT/ML 3 ML VIAL SUBCUT SCH ×4 (09:06→22:32)
[2020-07-03] MEDS: DOCUSATE SODIUM 100 MG CAPSULE PO SCH ×2 (09:06→18:41)
[2020-07-03] MEDS: FAMOTIDINE 20 MG TABLET PO SCH ×2 (09:06→22:34)
[2020-07-03] MEDS ORDERED: INSULIN GLARGINE,HUM.REC.ANLOG 1,000 UNIT/10 ML VIAL (PYX) SUBCUT ONE ×2 (09:30→12:15)
[2020-07-03] MEDS ORDERED: (PENDING PHARMACY ID) (Telmisartan [Telmisartan] 20 MG) PO SCH (10:00)
--- NOTE | 2020-07-03 10:28 | PDOC PROGRESS REPORT ---
Subjective Progress Note for:: 07/03/20 Subjective:: feels ok, still some pain Reason For Visit: CELLULITIS RIGHT SECOND TOE Physical Exam Vital Signs: Temp Pulse Resp BP Pulse Ox 97.7 F 87 16 143/63 H 99 07/03/20 07:43 07/03/20 07:43 07/03/20 07:43 07/03/20 07:43 07/03/20 07:43 Intake & Output 07/02/20 07/03/20 07/04/20 06:59 06:59 06:59 Intake Total 100 4100 Output Total 20 Balance 100 4080 Weight 105 kg 105 kg General appearance: PRESENT: no acute distress Head exam: PRESENT: normocephalic Eye exam: PRESENT: EOMI Ear exam: PRESENT: normal external ear exam Mouth exam: PRESENT: moist Neck exam: PRESENT: full ROM Respiratory exam: PRESENT: clear to auscultation anjelica Cardiovascular exam: PRESENT: RRR Pulses: PRESENT: normal radial pulses Vascular exam: PRESENT: normal capillary refill Breast: PRESENT: Normal GI/Abdominal exam: PRESENT: soft Rectal exam: PRESENT: deferred Extremities exam: PRESENT: other - Bilateral lower extremity skin excoriations from scratching Foot dressing remains intact with minimal strikethrough Neurological exam: PRESENT: alert, awake, oriented to person, oriented to place Psychiatric exam: PRESENT: depressed Skin exam: PRESENT: dry Results Laboratory Results: 07/03/20 07:08 07/03/20 07:08 07/02/20 07/03/20 07/03/20 18:18 07:08 07:08 WBC 7.6 RBC 4.81 Hgb 14.4 Hct 43.2 MCV 90 MCH 30.0 MCHC 33.4 RDW 13.4 Plt Count 422 Sodium 136.0 L Potassium 4.3 Chloride 103 Carbon Dioxide 25 Anion Gap 8 BUN 13 Creatinine 0.60 Est GFR ( Amer) > 60 Glucose 254 H Calcium 8.8 Magnesium 1.9 Total Bilirubin 0.4 AST 23 Alkaline Phosphatase 102 Total Protein 6.6 Albumin 3.7 Triglycerides 585 H Cholesterol 186.35 LDL Cholesterol Direct 64 HDL Cholesterol 48 TSH 1.68 Impressions: Foot X-Ray 07/01/20 21:08 IMPRESSION: Soft tissue ulceration of the second digit. No acute osseous abnormality copyright 2011 [employer]- All Rights Reserved Assessment & Plan - Time Anticipated Discharge Disposition: Home, Self Care Anticipated Discharge Timeframe: within 72 hours - Plan Summary Plan Summary: Impression is diabetic foot infection left foot status post left second toe amputation done last evening dressing remains intact. We will continue IV antibiotics. We will change dressing tomorrow.
--- NOTE | 2020-07-03 10:30 | RADIOLOGY REPORT (SQ) ---
EXAM DESCRIPTION: ARTERIAL LOWER EXTREM BILAT IMAGES COMPLETED DATE/TIME: 07/02/2020 4:42 pm REASON FOR STUDY: Rule out peripheral vascular disease in the legs COMPARISON: None. TECHNIQUE: Dynamic and static sears scale and color images acquired of the lower extremity arteries. Additional selected spectral images recorded. LIMITATIONS: None. FINDINGS: RIGHT LEG: FEMORAL ARTERIES: Triphasic spectral waveforms and normal color Doppler evaluation. There is no sten osis or aneurysm. POPLITEAL ARTERY: Triphasic spectral waveforms and normal color Doppler evaluation. There is no sten osis or aneurysm. PATENT TIBIOPERONEAL TRUNK AND 3 VESSEL RUNOFF: Patent 3 vessel runoff without a stenosis. OTHER: No other finding. LEFT LEG: FEMORAL ARTERIES: Triphasic spectral waveforms and normal color Doppler evaluation. There is no sten osis or aneurysm. POPLITEAL ARTERY: Triphasic spectral waveforms and normal color Doppler evaluation. There is no sten osis or aneurysm. PATENT TIBIOPERONEAL TRUNK AND 3 VESSEL RUNOFF: Patent 3 vessel runoff without a stenosis. OTHER: No other finding. IMPRESSION: NO HEMODYNAMICALLY SIGNIFICANT STENOSIS. TECHNICAL DOCUMENTATION: JOB ID: [id number] 2010 [employer]- All Rights Reserved Reading location - IP/workstation name: [email or web address]
[2020-07-03] MEDS: FENOFIBRATE NANOCRYSTALLIZED 145 MG TABLET PO SCH (12:02)
[2020-07-03] MEDS ORDERED: HYDROXYZINE PAMOATE 25 MG CAPSULE PO PRN (14:36)
[2020-07-03] MEDS: OXYCODONE-ACETAMINOPHEN 5-325 MG TABLET PO PRN ×2 (15:02→19:53)
--- NOTE | 2020-07-03 19:48 | PDOC PROGRESS REPORT ---
Subjective Progress Note for:: 07/03/20 Subjective:: Patient is a 49-year-old female with a past medical history of hypertension, hyperlipidemia, migraines, DM 2, hypothyroidism, obesity, arthritis, depression and tobacco dependency who was admitted 07/02/2020 with cellulitis of the right foot secondary to diabetic foot wound. Patient was seen on morning rounds. She was resting in bed, comfortably, on room air. Sleeping, but woke easily; reports she is tired and wants to go back to sleep. Patient reports slight foot pain, although, overall controlled with current medication regiment. She denies fever, chills, chest pain, palpitations, dyspnea, orthopnea, abdominal pain, nausea vomiting diarrhea. She has no questions or concerns at this time. No concerns per nursing. Reason For Visit: CELLULITIS RIGHT SECOND TOE Physical Exam Vital Signs: Temp Pulse Resp BP Pulse Ox 97.6 F 76 12 108/57 L 98 07/03/20 14:37 07/03/20 15:43 07/03/20 15:43 07/03/20 14:37 07/03/20 15:43 Intake & Output 07/02/20 07/03/20 07/04/20 06:59 06:59 06:59 Intake Total 100 4100 360 Output Total 20 Balance 100 4080 360 Weight 105 kg 105 kg General appearance: PRESENT: no acute distress, cooperative, obese, well- developed, well-nourished Head exam: PRESENT: atraumatic, normocephalic Eye exam: PRESENT: conjunctiva pink, EOMI, PERRLA. ABSENT: scleral icterus Mouth exam: PRESENT: moist, tongue midline Respiratory exam: PRESENT: clear to auscultation anjelica, symmetrical, unlabored. ABSENT: rales, rhonchi, wheezes Cardiovascular exam: PRESENT: RRR. ABSENT: diastolic murmur, rubs, systolic murmur Pulses: PRESENT: normal dorsalis pedis pul Extremities exam: PRESENT: full ROM. ABSENT: calf tenderness, clubbing, pedal edema Neurological exam: PRESENT: alert, awake, oriented to person, oriented to place, oriented to time, oriented to situation, CN II-XII grossly intact. ABSENT: motor sensory deficit Psychiatric exam: PRESENT: appropriate affect, normal mood. ABSENT: homicidal ideation, suicidal ideation Skin exam: PRESENT: dry, erythema, warm, other - s/p Rt 2nd toe amputation; surgical dressing in place, wound not visualized. Erythema to right foot. Erythema and edema to Lt 2-5 toes; improved. Numerous "picker and packer abrasions" all extremities. ABSENT: cyanosis, rash Results Laboratory Results: 07/03/20 07:08 07/03/20 07:08 07/03/20 07/03/20 07:08 07:08 WBC 7.6 RBC 4.81 Hgb 14.4 Hct 43.2 MCV 90 MCH 30.0 MCHC 33.4 RDW 13.4 Plt Count 422 Sodium 136.0 L Potassium 4.3 Chloride 103 Carbon Dioxide 25 Anion Gap 8 BUN 13 Creatinine 0.60 Est GFR ( Amer) > 60 Glucose 254 H Calcium 8.8 Magnesium 1.9 Total Bilirubin 0.4 AST 23 Alkaline Phosphatase 102 Total Protein 6.6 Albumin 3.7 Triglycerides 585 H Cholesterol 186.35 LDL Cholesterol Direct 64 HDL Cholesterol 48 Impressions: Foot X-Ray 07/01/20 21:08 IMPRESSION: Soft tissue ulceration of the second digit. No acute osseous abnormality copyright 2011 [employer]- All Rights Reserved Lower Extremity Ultrasound 07/02/20 00:00 IMPRESSION: NO HEMODYNAMICALLY SIGNIFICANT STENOSIS. Assessment and Plan - Diagnosis (1) Cellulitis of second toe, right Is this a current diagnosis for this admission?: Yes Plan: s/p Rt 2nd toe amputation by Dr. Oconnell Pathology pending Blood cultures negative at 24 hrs Patient is admitted to the medical floor. Continue empiric Zyvox and cefepime; Day #2. Surgery is consulted; appreciate their assistance. Analgesics as needed. (2) Diabetes mellitus type 2 in obese Is this a current diagnosis for this admission?: Yes Plan: Uncontrolled; A1c 12.2% Patient is placed on a consistent carb diet. Lantus 10 units every 12 hours. Accu-Cheks before meals and at bedtime with Humalog for sliding scale coverage. Hypoglycemia protocol in place. Registered dietitian and clinical document improvement educator consulted. (3) Hyperlipidemia Qualifiers: Hyperlipidemia type: unspecified Qualified Code(s): E78.5 - Hyperlipidemia, unspecified Is this a current diagnosis for this admission?: Yes Plan: Home dose statin. Cardiac/consistent carb diet. (4) Hypertension Qualifiers: Hypertension type: essential hypertension Qualified Code(s): I10 - Essential (primary) hypertension Is this a current diagnosis for this admission?: Yes Plan: Acceptable blood pressures at present. Provide for adequate pain management. Continue home dose clonidine and losartan IV hydralazine for BP control. Cardiac diet. (5) Hypothyroidism Qualifiers: Hypothyroidism type: unspecified Qualified Code(s): E03.9 - Hypothyroidism, unspecified Is this a current diagnosis for this admission?: No Plan: Patient reports history of hypothyroidism. Does not appear to be on medication. TSH nml (6) Leukocytosis, unspecified Qualifiers: Leukocytosis type: unspecified Qualified Code(s): D72.829 - Elevated white blood cell count, unspecified Is this a current diagnosis for this admission?: Yes Plan: Resolved. Secondary to #1 Management as above. (7) Lymphangitis Is this a current diagnosis for this admission?: Yes Plan: Resolved. Secondary to #1 Management as above. - Time Time Spent with patient: 25-34 minutes Medications reviewed and adjusted accordingly: Yes Anticipated Discharge Disposition: Home, Self Care Anticipated Discharge Timeframe: within 72 hours
[2020-07-03] MEDS ORDERED: INSULIN GLARGINE,HUM.REC.ANLOG 1,000 UNIT/10 ML VIAL SUBCUT SCH (22:00)
[2020-07-03] MEDS: ATORVASTATIN CALCIUM 40 MG TABLET PO SCH (22:34)
[2020-07-04] MEDS: OXYCODONE-ACETAMINOPHEN 5-325 MG TABLET PO PRN ×6 (00:32→23:55)
[2020-07-04] MEDS: TOPIRAMATE 25 MG TABLET PO SCH ×5 (00:32→23:53)
[2020-07-04] MEDS: CEFEPIME HCL 2 GM in DEXTROSE 5%-WATER 50 ML IV SCH ×3 (05:56→22:09)
[2020-07-04] MEDS: HEPARIN SOD (PORCINE) 5,000 UNIT/ML 1 ML VIAL SUBCUT SCH ×3 (05:57→22:06)
[2020-07-04] MEDS: PANTOPRAZOLE SODIUM 40 MG TABLET.DR PO SCH (05:58)
[2020-07-04] MEDS: INSULIN LISPRO 100 UNIT/ML 3 ML VIAL SUBCUT SCH ×4 (07:57→22:07)
[2020-07-04 08:10] LABS: HEMATOCRIT 43.1 % (36.0-47.0); HEMOGLOBIN 14.8 g/dL (12.0-15.5); MEAN CORPUSCULAR HEMOGLOBIN 30.5 pg (27.0-33.4); MEAN CORPUSCULAR HGB CONC 34.4 g/dL (32.0-36.0); MEAN CORPUSCULAR VOLUME 89 fl (80-97); PLATELET COUNT 433 10^3/uL (150-450); RED BLOOD COUNT 4.86 10^6/uL (3.72-5.28); RED CELL DISTRIBUTION WIDTH 13.4 % (11.5-14.0); WHITE BLOOD COUNT 7.1 10^3/uL (4.0-10.5)
[2020-07-04 08:28] LABS: ANION GAP 12 (5-19); BLOOD UREA NITROGEN 14 mg/dL (7-20); CALCIUM 9.2 mg/dL (8.4-10.2); CARBON DIOXIDE 24 mmol/L (22-30); CHLORIDE 100 mmol/L (98-107); GLUCOSE 263 mg/dL (75-110); POTASSIUM 4.5 mmol/L (3.6-5.0)
[2020-07-04] MEDS ORDERED: INSULIN GLARGINE,HUM.REC.ANLOG 1,000 UNIT/10 ML VIAL (PYX) SUBCUT ONE (10:30)
[2020-07-04] MEDS: FAMOTIDINE 20 MG TABLET PO SCH ×2 (10:49→22:06)
[2020-07-04] MEDS: LOSARTAN POTASSIUM 25 MG TABLET PO SCH (10:49)
[2020-07-04] MEDS: CITALOPRAM HYDROBROMIDE 20 MG TABLET PO SCH (10:49)
[2020-07-04] MEDS: GABAPENTIN 300 MG CAPSULE PO SCH ×4 (10:49→22:08)
[2020-07-04] MEDS: DOCUSATE SODIUM 100 MG CAPSULE PO SCH ×2 (10:49→19:29)
[2020-07-04] MEDS: CLONIDINE HCL 0.1 MG TABLET PO SCH (10:49)
[2020-07-04] MEDS: LINEZOLID 600 MG/300 ML RTUPB IV SCH ×2 (10:59→22:09)
[2020-07-04] MEDS: FENOFIBRATE NANOCRYSTALLIZED 145 MG TABLET PO SCH (11:00)
--- NOTE | 2020-07-04 13:37 | PDOC PROGRESS REPORT ---
Subjective Progress Note for:: 07/04/20 Reason For Visit: CELLULITIS RIGHT SECOND TOE Physical Exam Vital Signs: Temp Pulse Resp BP Pulse Ox 98.3 F 97 16 125/77 100 07/04/20 10:27 07/04/20 10:27 07/04/20 10:27 07/04/20 10:27 07/04/20 10:27 Intake & Output 07/03/20 07/04/20 07/05/20 06:59 06:59 06:59 Intake Total 4100 2760 600 Output Total 20 Balance 4080 2760 600 Weight 105 kg 105 kg Results Laboratory Results: 07/04/20 07:58 07/04/20 07:58 07/04/20 07/04/20 07:58 07:58 WBC 7.1 RBC 4.86 Hgb 14.8 Hct 43.1 MCV 89 MCH 30.5 MCHC 34.4 RDW 13.4 Plt Count 433 Sodium 135.5 L Potassium 4.5 Chloride 100 Carbon Dioxide 24 Anion Gap 12 BUN 14 Creatinine 0.56 Est GFR ( Amer) > 60 Glucose 263 H Calcium 9.2 Impressions: Foot X-Ray 07/01/20 21:08 IMPRESSION: Soft tissue ulceration of the second digit. No acute osseous abnormality copyright 2011 [employer]- All Rights Reserved Lower Extremity Ultrasound 07/02/20 00:00 IMPRESSION: NO HEMODYNAMICALLY SIGNIFICANT STENOSIS. Assessment & Plan - Diagnosis (1) Diabetic foot Is this a current diagnosis for this admission?: Yes - Time Anticipated Discharge Disposition: unknown Anticipated Discharge Timeframe: unknown - Plan Summary Plan Summary: 49-year-old diabetic female status post amputation of the toe due to overwhelming soft tissue infection. Patient still has noticeable erythema. I have removed her dressing. There is no significant purulence present in the base of the wound. Initiate damp to dry dressing changes. Tight glucose control. Surgery will continue to follow with you.
--- NOTE | 2020-07-04 18:30 | PDOC PROGRESS REPORT ---
Subjective Progress Note for:: 07/04/20 Subjective:: Patient is a 49-year-old female with a past medical history of hypertension, hyperlipidemia, migraines, DM 2, hypothyroidism, obesity, arthritis, depression and tobacco dependency who was admitted 07/02/2020 with cellulitis of the right foot secondary to diabetic foot wound. Patient was seen on morning rounds. She was resting in bed, comfortably, on room air. Patient's primary concern today is her elevated blood sugars. We discussed that her long-acting insulin was slowly being reintroduced; we often decrease dosing upon admission to prevent hypoglycemia while on the consistent carb diet provided by the hospital. We also discussed her hemoglobin A1c of 12. 2%; her most recent blood glucose average is slightly improved as compared to what is her typical at home. Patient was advised that we will be obtaining a registered dietitian and patient educator consultation to help assist her in better managing her diabetes at home. She denies fever, chills, chest pain, palpitations, dyspnea, orthopnea, abdominal pain, nausea vomiting diarrhea. She has no questions or concerns at this time. No concerns per nursing. Reason For Visit: CELLULITIS RIGHT SECOND TOE Physical Exam Vital Signs: Temp Pulse Resp BP Pulse Ox 97.7 F 81 12 97/53 L 97 07/04/20 15:02 07/04/20 15:02 07/04/20 15:02 07/04/20 15:02 07/04/20 15:02 Intake & Output 07/03/20 07/04/20 07/05/20 06:59 06:59 06:59 Intake Total 4100 2760 1440 Output Total 20 Balance 4080 2760 1440 Weight 105 kg 105 kg General appearance: PRESENT: no acute distress, disheveled, obese, well- developed, well-nourished Head exam: PRESENT: atraumatic, normocephalic Eye exam: PRESENT: conjunctiva pink, EOMI, PERRLA. ABSENT: scleral icterus Mouth exam: PRESENT: moist, tongue midline Teeth exam: PRESENT: poor dentation Respiratory exam: PRESENT: clear to auscultation anjelica, symmetrical, unlabored. ABSENT: rales, rhonchi, wheezes Cardiovascular exam: PRESENT: RRR. ABSENT: diastolic murmur, rubs, systolic murmur Pulses: PRESENT: normal dorsalis pedis pul Vascular exam: PRESENT: normal capillary refill Extremities exam: PRESENT: full ROM. ABSENT: calf tenderness, clubbing, pedal edema Neurological exam: PRESENT: alert, awake, oriented to person, oriented to place, oriented to time, oriented to situation, CN II-XII grossly intact. ABSENT: motor sensory deficit Psychiatric exam: PRESENT: appropriate affect, normal mood. ABSENT: homicidal ideation, suicidal ideation Skin exam: PRESENT: dry, erythema, warm, other - s/p Rt 2nd toe amputation; surgical dressing in place, wound not visualized. Erythema to right foot. Erythema and edema to Lt 2&3 toes; continues to improve. Numerous "grape picker abrasions" all extremities. ABSENT: cyanosis, rash Results Laboratory Results: 07/04/20 07:58 07/04/20 07:58 07/04/20 07/04/20 07:58 07:58 WBC 7.1 RBC 4.86 Hgb 14.8 Hct 43.1 MCV 89 MCH 30.5 MCHC 34.4 RDW 13.4 Plt Count 433 Sodium 135.5 L Potassium 4.5 Chloride 100 Carbon Dioxide 24 Anion Gap 12 BUN 14 Creatinine 0.56 Est GFR ( Amer) > 60 Glucose 263 H Calcium 9.2 Impressions: Foot X-Ray 07/01/20 21:08 IMPRESSION: Soft tissue ulceration of the second digit. No acute osseous abnormality copyright 2011 [employer]- All Rights Reserved Lower Extremity Ultrasound 07/02/20 00:00 IMPRESSION: NO HEMODYNAMICALLY SIGNIFICANT STENOSIS. Assessment and Plan - Diagnosis (1) Cellulitis of second toe, right Is this a current diagnosis for this admission?: Yes Plan: s/p Rt 2nd toe amputation by Dr. Oconnell Pathology pending Blood cultures negative at 48 hrs Patient is admitted to the medical floor. Continue empiric Zyvox and cefepime; Day #3. No known history of MRSA; consider discontinuing Zyvox tomorrow if cultures remain negative. Surgery is consulted; appreciate their assistance. Analgesics as needed. (2) Diabetes mellitus type 2 in obese Is this a current diagnosis for this admission?: Yes Plan: Uncontrolled; A1c 12.2% Patient is placed on a consistent carb diet. Increase Lantus to 14 units every 12 hours. Accu-Cheks before meals and at bedtime with Humalog for sliding scale coverage. Hypoglycemia protocol in place. Registered dietitian and human resource adviser consulted. (3) Hyperlipidemia Qualifiers: Hyperlipidemia type: unspecified Qualified Code(s): E78.5 - Hyperlipidemia, unspecified Is this a current diagnosis for this admission?: Yes Plan: Home dose statin. Cardiac/consistent carb diet. (4) Hypertension Qualifiers: Hypertension type: essential hypertension Qualified Code(s): I10 - Essential (primary) hypertension Is this a current diagnosis for this admission?: Yes Plan: Acceptable blood pressures at present. Provide for adequate pain management. Continue home dose clonidine and losartan IV hydralazine for BP control. Cardiac diet. (5) Hypothyroidism Qualifiers: Hypothyroidism type: unspecified Qualified Code(s): E03.9 - Hypothyroidism, unspecified Is this a current diagnosis for this admission?: No Plan: Patient reports history of hypothyroidism. Does not appear to be on medication. TSH nml (6) Leukocytosis, unspecified Qualifiers: Leukocytosis type: unspecified Qualified Code(s): D72.829 - Elevated white blood cell count, unspecified Is this a current diagnosis for this admission?: Yes Plan: Resolved. Secondary to #1 Management as above. (7) Lymphangitis Is this a current diagnosis for this admission?: Yes Plan: Resolved. Secondary to #1 Management as above. - Time Time Spent with patient: 25-34 minutes Medications reviewed and adjusted accordingly: Yes Anticipated Discharge Disposition: Home, Self Care Anticipated Discharge Timeframe: within 72 hours
[2020-07-04] MEDS: INSULIN GLARGINE,HUM.REC.ANLOG 1,000 UNIT/10 ML VIAL SUBCUT SCH (22:07)
[2020-07-04] MEDS: BUTALB/ACETAMINOPHEN/CAFFEINE 1 TAB EACH PO PRN (22:08)
[2020-07-04] MEDS: ATORVASTATIN CALCIUM 40 MG TABLET PO SCH (22:10)
[2020-07-05] MEDS: PANTOPRAZOLE SODIUM 40 MG TABLET.DR PO SCH (05:29)
[2020-07-05] MEDS: HEPARIN SOD (PORCINE) 5,000 UNIT/ML 1 ML VIAL SUBCUT SCH ×3 (05:29→21:52)
[2020-07-05] MEDS: TOPIRAMATE 25 MG TABLET PO SCH ×3 (05:29→17:36)
[2020-07-05] MEDS: OXYCODONE-ACETAMINOPHEN 5-325 MG TABLET PO PRN ×4 (05:29→20:42)
[2020-07-05 07:33] LABS: HEMATOCRIT 41.4 % (36.0-47.0); HEMOGLOBIN 14.2 g/dL (12.0-15.5); MEAN CORPUSCULAR HEMOGLOBIN 30.3 pg (27.0-33.4); MEAN CORPUSCULAR HGB CONC 34.2 g/dL (32.0-36.0); MEAN CORPUSCULAR VOLUME 89 fl (80-97); PLATELET COUNT 388 10^3/uL (150-450); RED BLOOD COUNT 4.68 10^6/uL (3.72-5.28); RED CELL DISTRIBUTION WIDTH 13.3 % (11.5-14.0); WHITE BLOOD COUNT 6.6 10^3/uL (4.0-10.5)
[2020-07-05 07:49] LABS: ANION GAP 8 (5-19); BLOOD UREA NITROGEN 13 mg/dL (7-20); CARBON DIOXIDE 28 mmol/L (22-30); CHLORIDE 100 mmol/L (98-107); GLUCOSE 342 mg/dL (75-110); POTASSIUM 4.7 mmol/L (3.6-5.0)
[2020-07-05] MEDS: INSULIN GLARGINE,HUM.REC.ANLOG 1,000 UNIT/10 ML VIAL SUBCUT SCH (09:39)
[2020-07-05] MEDS: CITALOPRAM HYDROBROMIDE 20 MG TABLET PO SCH (09:39)
[2020-07-05] MEDS: LOSARTAN POTASSIUM 25 MG TABLET PO SCH (09:40)
[2020-07-05] MEDS: FAMOTIDINE 20 MG TABLET PO SCH ×2 (09:41→21:52)
[2020-07-05] MEDS: INSULIN LISPRO 100 UNIT/ML 3 ML VIAL SUBCUT SCH ×4 (09:41→21:52)
[2020-07-05] MEDS: GABAPENTIN 300 MG CAPSULE PO SCH ×4 (09:41→21:52)
[2020-07-05] MEDS: CLONIDINE HCL 0.1 MG TABLET PO SCH (09:41)
[2020-07-05] MEDS: CEFEPIME HCL 2 GM in DEXTROSE 5%-WATER 50 ML IV SCH ×2 (10:33→21:50)
[2020-07-05] MEDS: DOCUSATE SODIUM 100 MG CAPSULE PO SCH ×2 (10:34→17:36)
[2020-07-05] MEDS: FENOFIBRATE NANOCRYSTALLIZED 145 MG TABLET PO SCH (10:44)
[2020-07-05] MEDS: LINEZOLID 600 MG/300 ML RTUPB IV SCH ×2 (10:48→21:47)
--- NOTE | 2020-07-05 13:26 | PDOC PROGRESS REPORT ---
Subjective Progress Note for:: 07/05/20 Reason For Visit: CELLULITIS RIGHT SECOND TOE Physical Exam Vital Signs: Temp Pulse Resp BP Pulse Ox 97.9 F 87 16 126/72 H 98 07/05/20 11:22 07/05/20 11:22 07/05/20 11:22 07/05/20 11:22 07/05/20 11:22 Intake & Output 07/04/20 07/05/20 07/06/20 06:59 06:59 06:59 Intake Total 2760 2039 Balance [id number] Weight 105 kg 105 kg Results Laboratory Results: 07/05/20 07:00 07/05/20 07:00 07/05/20 07/05/20 07:00 07:00 WBC 6.6 RBC 4.68 Hgb 14.2 Hct 41.4 MCV 89 MCH 30.3 MCHC 34.2 RDW 13.3 Plt Count 388 Sodium 135.7 L Potassium 4.7 Chloride 100 Carbon Dioxide 28 Anion Gap 8 BUN 13 Creatinine 0.61 Est GFR ( Amer) > 60 Glucose 342 H Calcium 9.0 Impressions: Foot X-Ray 07/01/20 21:08 IMPRESSION: Soft tissue ulceration of the second digit. No acute osseous abnormality copyright 2011 [employer]- All Rights Reserved Lower Extremity Ultrasound 07/02/20 00:00 IMPRESSION: NO HEMODYNAMICALLY SIGNIFICANT STENOSIS. Assessment & Plan - Diagnosis (1) Diabetic foot Is this a current diagnosis for this admission?: Yes - Time Anticipated Discharge Disposition: Home, Self Care Anticipated Discharge Timeframe: unknown - Plan Summary Plan Summary: 49-year-old diabetic female status post amputation of the toe due to overwhelming soft tissue infection. Patient still has noticeable erythema. I have removed her dressing. There is no significant purulence present in the base of the wound. Continue damp to dry dressing changes. Tight glucose control. Surgery will continue to follow with you.
[2020-07-05] MEDS: BUTALB/ACETAMINOPHEN/CAFFEINE 1 TAB EACH PO PRN (13:58)
[2020-07-05] MEDS ORDERED: INSULIN LISPRO 100 UNIT/ML 3 ML VIAL SUBCUT SCH (16:30)
[2020-07-05] MEDS: ATORVASTATIN CALCIUM 40 MG TABLET PO SCH (21:52)
--- NOTE | 2020-07-05 21:52 | PDOC PROGRESS REPORT ---
Subjective Progress Note for:: 07/05/20 Subjective:: Patient is a 49-year-old female with a past medical history of hypertension, hyperlipidemia, migraines, DM 2, hypothyroidism, obesity, arthritis, depression and tobacco dependency who was admitted 07/02/2020 with cellulitis of the right foot secondary to diabetic foot wound. She underwent amputation of her right second toe by Dr. Paul on July 02, 2020. She has since been on cefepime and linezolid. Blood glucose has been consistently high since admission. D3 hospital stay.She was seen and examined at bedside. She denies pain on operative site, denies any chest pain shortness of breath. She expressed concerns that her blood glucose continues to be high. She also mentioned that she takes a long-acting insulin 80 units at night and about 15 to 30 units of Humalog with each meal depending on how large her meal is. Home insulin doses resumed. Her Safley assessed her wound today and recommended continued antibiotics, and continue dressing changes. Reason For Visit: CELLULITIS RIGHT SECOND TOE Physical Exam Vital Signs: Temp Pulse Resp BP Pulse Ox 98.0 F 95 16 99/53 L 96 07/05/20 16:00 07/05/20 16:00 07/05/20 16:00 07/05/20 16:00 07/05/20 16:00 Intake & Output 07/04/20 07/05/20 07/06/20 06:59 06:59 06:59 Intake Total 2760 2040 660 Balance 2760 2040 660 Weight 105 kg 105 kg General appearance: PRESENT: no acute distress, cooperative, obese Head exam: PRESENT: atraumatic, normocephalic Eye exam: PRESENT: EOMI, PERRLA Mouth exam: PRESENT: moist Neck exam: PRESENT: full ROM Respiratory exam: PRESENT: clear to auscultation anjelica, symmetrical, unlabored Cardiovascular exam: PRESENT: RRR, +S1, +S2 Pulses: PRESENT: +2 pedal pulses bilateral GI/Abdominal exam: PRESENT: normal bowel sounds, soft. ABSENT: rebound, tenderness Extremities exam: PRESENT: full ROM, other - Foot dressing intact, no signs of infection Musculoskeletal exam: PRESENT: full ROM Neurological exam: PRESENT: alert, awake, oriented to person, oriented to place, oriented to time, oriented to situation Psychiatric exam: PRESENT: normal mood Skin exam: PRESENT: normal color Results Laboratory Results: 07/05/20 07:00 07/05/20 07:00 07/05/20 07/05/20 07:00 07:00 WBC 6.6 RBC 4.68 Hgb 14.2 Hct 41.4 MCV 89 MCH 30.3 MCHC 34.2 RDW 13.3 Plt Count 388 Sodium 135.7 L Potassium 4.7 Chloride 100 Carbon Dioxide 28 Anion Gap 8 BUN 13 Creatinine 0.61 Est GFR ( Amer) > 60 Glucose 342 H Calcium 9.0 Impressions: Foot X-Ray 07/01/20 21:08 IMPRESSION: Soft tissue ulceration of the second digit. No acute osseous abnormality copyright 2010 [employer]- All Rights Reserved Lower Extremity Ultrasound 07/02/20 00:00 IMPRESSION: NO HEMODYNAMICALLY SIGNIFICANT STENOSIS. Assessment and Plan - Diagnosis (1) Cellulitis of second toe, right Is this a current diagnosis for this admission?: Yes Plan: s/p Rt 2nd toe amputation by Dr. Oconnell Pathology pending Blood cultures negative at 48 hrs Patient is admitted to the medical floor. Continue empiric Zyvox and cefepime; Day #4 No known history of MRSA Surgery: continue abx and dressing change Analgesics as needed. (2) Diabetes mellitus type 2 in obese Is this a current diagnosis for this admission?: Yes Plan: Uncontrolled; A1c 12.2% Patient is placed on a consistent carb diet. Long acting insulin at 80 QHS and 15 u with meals resumed Accu-Cheks before meals and at bedtime with Humalog for sliding scale coverage. Hypoglycemia protocol in place. Registered dietitian and diabetes educator consulted. (3) Hyperlipidemia Qualifiers: Hyperlipidemia type: unspecified Qualified Code(s): E78.5 - Hyperlipidemia, unspecified Is this a current diagnosis for this admission?: Yes Plan: Home dose statin. Cardiac/consistent carb diet. (4) Hypertension Qualifiers: Hypertension type: essential hypertension Qualified Code(s): I10 - Essential (primary) hypertension Is this a current diagnosis for this admission?: Yes Plan: Acceptable blood pressures at present. Provide for adequate pain management. Continue home dose clonidine and losartan IV hydralazine for BP control. Cardiac diet. (5) Hypothyroidism Qualifiers: Hypothyroidism type: unspecified Qualified Code(s): E03.9 - Hypothyroidism, unspecified Is this a current diagnosis for this admission?: No Plan: Patient reports history of hypothyroidism. Does not appear to be on medication. TSH nml (6) Leukocytosis, unspecified Qualifiers: Leukocytosis type: unspecified Qualified Code(s): D72.829 - Elevated white blood cell count, unspecified Is this a current diagnosis for this admission?: Yes Plan: Resolved. Secondary to #1 Management as above. - Time Time Spent with patient: 15-24 minutes Anticipated Discharge Disposition: Home, Self Care Anticipated Discharge Timeframe: to be determined
[2020-07-06] MEDS: OXYCODONE-ACETAMINOPHEN 5-325 MG TABLET PO PRN ×4 (00:50→16:21)
[2020-07-06] MEDS: TOPIRAMATE 25 MG TABLET PO SCH ×3 (00:51→11:46)
[2020-07-06] MEDS: PANTOPRAZOLE SODIUM 40 MG TABLET.DR PO SCH (06:30)
[2020-07-06] MEDS: HEPARIN SOD (PORCINE) 5,000 UNIT/ML 1 ML VIAL SUBCUT SCH ×2 (06:30→16:20)
[2020-07-06] MEDS: INSULIN LISPRO 100 UNIT/ML 3 ML VIAL SUBCUT SCH ×3 (07:56→12:07)
[2020-07-06] MEDS ORDERED: INSULIN GLARGINE,HUM.REC.ANLOG 1,000 UNIT/10 ML VIAL SUBCUT SCH (10:00)
[2020-07-06 11:14] LABS: ABSOLUTE BASOPHILS # (AUTO) 0.1 10^3/uL (0.0-0.2); ABSOLUTE EOSINOPHILS # (AUTO) 0.2 10^3/uL (0.0-0.6); ABSOLUTE LYMPHOCYTES (AUTO) 2.2 10^3/uL (0.5-4.7); ABSOLUTE MONOCYTES (AUTO) 0.6 10^3/uL (0.1-1.4); ABSOLUTE NEUT (AUTO) 3.7 10^3/uL (1.7-8.2); BASOPHILS % (AUTO) 1.3 % (0-2); EOSINOPHILS % (AUTO) 2.7 % (0-6); HEMATOCRIT 40.9 % (36.0-47.0); LYMPHOCYTES % (AUTO) 32.1 % (13-45); MEAN CORPUSCULAR HEMOGLOBIN 30.6 pg (27.0-33.4); MEAN CORPUSCULAR HGB CONC 34.1 g/dL (32.0-36.0); MEAN CORPUSCULAR VOLUME 90 fl (80-97); MONOCYTES % (AUTO) 8.9 % (3-13); PLATELET COUNT 383 10^3/uL (150-450); RED BLOOD COUNT 4.57 10^6/uL (3.72-5.28); RED CELL DISTRIBUTION WIDTH 13.6 % (11.5-14.0); TOTAL CELLS COUNTED % (AUTO) 100 %; WHITE BLOOD COUNT 6.7 10^3/uL (4.0-10.5)
[2020-07-06 11:33] LABS: ALBUMIN 3.6 g/dL (3.5-5.0); ALKALINE PHOSPHATASE 88 U/L (38-126); ASPARTATE AMINO TRANSFERASE 62 U/L (14-36); BILIRUBIN,DIRECT 0.1 mg/dL (0.0-0.4); BILIRUBIN,TOTAL 0.2 mg/dL (0.2-1.3); BLOOD UREA NITROGEN 15 mg/dL (7-20); C-REACTIVE PROTEIN 8.6 mg/L (<10.0); CARBON DIOXIDE 30 mmol/L (22-30); CHLORIDE 101 mmol/L (98-107); GLUCOSE 309 mg/dL (75-110); POTASSIUM 4.3 mmol/L (3.6-5.0); TOTAL PROTEIN 6.4 g/dL (6.3-8.2)
[2020-07-06] MEDS: DOCUSATE SODIUM 100 MG CAPSULE PO SCH (11:44)
[2020-07-06] MEDS: LOSARTAN POTASSIUM 25 MG TABLET PO SCH (11:45)
[2020-07-06] MEDS: GABAPENTIN 300 MG CAPSULE PO SCH ×2 (11:45→16:00)
[2020-07-06] MEDS: CITALOPRAM HYDROBROMIDE 20 MG TABLET PO SCH (11:45)
[2020-07-06] MEDS: FENOFIBRATE NANOCRYSTALLIZED 145 MG TABLET PO SCH (11:45)
[2020-07-06 11:58] LABS: ERYTHROCYTE SEDIMENTATION RATE 17 mm/hr (0-30)
[2020-07-06] MEDS: LINEZOLID 600 MG/300 ML RTUPB IV SCH (12:48)
[2020-07-06 12:57] LABS: ANION GAP 4 (5-19)
--- NOTE | 2020-07-06 14:10 | PDOC PROGRESS REPORT ---
Subjective Progress Note for:: 07/06/20 Reason For Visit: CELLULITIS RIGHT SECOND TOE Patient complaining of some pain in the right foot. There is no fever. Physical Exam Vital Signs: Temp Pulse Resp BP Pulse Ox 97.6 F 79 17 122/56 L 94 07/06/20 11:19 07/06/20 11:19 07/06/20 11:19 07/06/20 11:19 07/06/20 11:19 Intake & Output 07/05/20 07/06/20 07/07/20 06:59 06:59 06:59 Intake Total 2040 1010 240 Balance 2040 1010 240 Weight 105 kg 105 kg General appearance: PRESENT: no acute distress Musculoskeletal exam: PRESENT: other - Dressing removed; erythema resolved on the dorsum of the foot. Wound cavity clean, granulating in nicely. All sutures approximated and closed at bedside. Results Laboratory Results: 07/06/20 10:53 07/06/20 10:53 07/06/20 07/06/20 10:53 10:53 WBC 6.7 RBC 4.57 Hgb 14.0 Hct 40.9 MCV 90 MCH 30.6 MCHC 34.1 RDW 13.6 Plt Count 383 Seg Neutrophils % 55.0 Sodium 135.3 L Potassium 4.3 Chloride 101 Carbon Dioxide 30 Anion Gap 4 L BUN 15 Creatinine 0.69 Est GFR ( Amer) > 60 Glucose 309 H Calcium 9.0 Magnesium 1.8 Total Bilirubin 0.2 AST 62 H Alkaline Phosphatase 88 C-Reactive Protein 8.6 Total Protein 6.4 Albumin 3.6 Impressions: Foot X-Ray 07/01/20 21:08 IMPRESSION: Soft tissue ulceration of the second digit. No acute osseous abnormality copyright 2011 [employer]- All Rights Reserved Lower Extremity Ultrasound 07/02/20 00:00 IMPRESSION: NO HEMODYNAMICALLY SIGNIFICANT STENOSIS. Assessment & Plan - Diagnosis (1) Cellulitis of second toe, right Is this a current diagnosis for this admission?: Yes Plan: Impression: Patient is 3 days status post right second toe amputation, doing well, with wound posed by secondary intention. Recommendations: 1. Patient can be discharged home from a surgical standpoint, with a surgical sandal, ambulating only weightbearing on heel as tolerated. 2. Local wound care; wash open wound every other day; apply Xeroform, 4 x 4's and Kerlix. 3. Additional antibiotics optional; limited post discharge p.o. course may be reasonable 4. Patient follow-up with [facility] in 1 to 2 weeks. - Time Time Spent: 30 to 50 Minutes Critical Time spent with patient: Less than 15 minutes Smoking Cessation Education: 3 to 10 minutes Medications reviewed and adjusted accordingly: Yes Anticipated Discharge Disposition: Home with Home Health Anticipated Discharge Timeframe: within 24 hours
[2020-07-06 16:09] VITALS: BP 126/61
--- NOTE | 2020-07-06 20:49 | PDOC DISCHARGE SUMMARY ---
Impression - Admit/DC Date/PCP Admission Date/Primary Care Provider: 07/02/20 04:24 TAY SHAW PA-C Discharge Date: 07/06/20 - Discharge Diagnosis (1) Cellulitis of second toe, right Is this a current diagnosis for this admission?: Yes (2) Diabetes mellitus type 2 in obese Is this a current diagnosis for this admission?: Yes (3) Diabetic foot Is this a current diagnosis for this admission?: Yes (4) Leukocytosis, unspecified Is this a current diagnosis for this admission?: Yes - Assessment Summary: 49-year-old female with a past medical history of hypertension, hyperlipidemia, migraines, uncontrolled DM2 on insulin, hypothyroidism, obesity, arthritis, depression and tobacco dependency who was admitted 07/02/2020 with cellulitis of the right foot secondary to diabetic foot infection. She underwent amputation of her right second toe by Dr. Pual on July 02, 2020. She has since been on cefepime and linezolid while inpatient and was discharged on addition 5 day course of Ceftin. Blood glucose has been consistently high since admission requiring insulin adjustment. She was discharged home on higher insulin dosage. She was referred to wound care and podiatry. She will follow up with her PCP within 1 week and with surgery within 2 weeks of discharge. - Additional Information Resuscitation Status: Full Code Discharge Diet: Diabetic Discharge Activity: Activity As Tolerated Referrals: KALEE BREWSTER [INTERNET SOURCER] - JOHNY ROMERO DPM [ACTIVE STAFF] - BONG PAUL MD [ACTIVE STAFF] - 07/16/20 1:00 pm (S/P 07/02 AMPUTATION OF RIGHT 2ND TOE) Prescriptions: Cefuroxime Axetil [Ceftin 500 mg Tablet] 1 tab PO BID #10 tablet Home Medications: Insulin Glargine,Hum.rec.anlog [Toujeo Solostar] 80 unit SQ DAILY #1 insuln.pen 03/26/19 Insulin Lispro [Humalog Kwikpen U-100] 0 unit SQ ASDIR PRN #1 insuln.pen 03/26/19 Atorvastatin Calcium [Lipitor 40 mg Tablet] 40 mg PO QHS 07/02/20 Butalb/Acetaminophen/Caffeine [Fioricet (50-325-40 mg) Tablet] 1 tab PO Q6HP PRN 07/02/20 Citalopram Hydrobromide [Celexa] 1 tab PO DAILY 07/02/20 Clonidine HCl [Catapres 0.1 mg Tablet] 0.1 mg PO DAILY 07/02/20 Cyclobenzaprine HCl [Flexeril 10 mg Tablet] 10 mg PO DAILY 07/02/20 Empagliflozin [Jardiance] 25 mg PO DAILY 07/02/20 Gabapentin 600 mg PO QID 07/02/20 Hydroxyzine Pamoate [Vistaril 25 mg Capsule] 25 mg PO TID 07/02/20 Ibuprofen [Ibu] 800 mg PO TID 07/02/20 Levocetirizine Dihydrochloride [Allergy Relief] 5 mg PO DAILY 07/02/20 Naproxen [Naprosyn] 500 mg PO BID 07/02/20 Olopatadine HCl [Pataday] 1 ml OP BID 07/02/20 Omeprazole 40 mg PO DAILY 07/02/20 Telmisartan 20 mg PO DAILY 07/02/20 Topiramate 50 mg PO QID 07/02/20 Acetaminophen [Tylenol 325 mg Tablet] 650 mg PO Q4HP PRN tablet 07/06/20 Cefuroxime Axetil [Ceftin 500 mg Tablet] 1 tab PO BID #10 tablet 07/06/20 History of Present Illiness History of Present Illness: RICKIE JOHNSTON is a 49 year old female Physical Exam Vital Signs: Temp Pulse Resp BP Pulse Ox 97.6 F 79 17 126/61 H 94 07/06/20 17:04 07/06/20 17:04 07/06/20 17:04 07/06/20 17:04 07/06/20 17:04 Intake & Output 07/05/20 07/06/20 07/07/20 06:59 06:59 06:59 Intake Total 0 1010 240 Balance 2039 1010 240 Weight 105 kg 105 kg Results Laboratory Results: WBC 6.7 10^3/uL (4.0-10.5) 07/06/20 10:53 RBC 4.57 10^6/uL (3.72-5.28) 07/06/20 10:53 Hgb 14.0 g/dL (12.0-15.5) 07/06/20 10:53 Hct 40.9 % (36.0-47.0) 07/06/20 10:53 MCV 90 fl (80-97) 07/06/20 10:53 MCH 30.6 pg (27.0-33.4) 07/06/20 10:53 MCHC 34.1 g/dL (32.0-36.0) 07/06/20 10:53 RDW 13.6 % (11.5-14.0) 07/06/20 10:53 Plt Count 383 10^3/uL (150-450) 07/06/20 10:53 Lymph % (Auto) 32.1 % (13-45) 07/06/20 10:53 Price % (Auto) 8.9 % (3-13) 07/06/20 10:53 Eos % (Auto) 2.7 % (0-6) 07/06/20 10:53 Baso % (Auto) 1.3 % (0-2) 07/06/20 10:53 Absolute Neuts (auto) 3.7 10^3/uL (1.7-8.2) 07/06/20 10:53 Absolute Lymphs (auto) 2.2 10^3/uL (0.5-4.7) 07/06/20 10:53 Absolute Monos (auto) 0.6 10^3/uL (0.1-1.4) 07/06/20 10:53 Absolute Eos (auto) 0.2 10^3/uL (0.0-0.6) 07/06/20 10:53 Absolute Basos (auto) 0.1 10^3/uL (0.0-0.2) 07/06/20 10:53 Seg Neutrophils % 55.0 % (42-78) 07/06/20 10:53 ESR 17 mm/hr (0-30) 07/06/20 10:53 Sodium 135.3 mmol/L (137-145) L 07/06/20 10:53 Potassium 4.3 mmol/L (3.6-5.0) 07/06/20 10:53 Chloride 101 mmol/L (98-107) 07/06/20 10:53 Carbon Dioxide 30 mmol/L (22-30) 07/06/20 10:53 Anion Gap 4 (5-19) L 07/06/20 10:53 BUN 15 mg/dL (7-20) 07/06/20 10:53 Creatinine 0.69 mg/dL (0.52-1.25) 07/06/20 10:53 Est GFR ( Amer) > 60 (>60) 07/06/20 10:53 Est GFR (MDRD) Non-Af > 60 (>60) 07/06/20 10:53 Glucose 309 mg/dL (75-110) H 07/06/20 10:53 POC Glucose 223 mg/dL (70-110) H 07/06/20 15:47 Hemoglobin A1c % 12.2 % (4.7-6.0) H 07/03/20 07:08 Calcium 9.0 mg/dL (8.4-10.2) 07/06/20 10:53 Magnesium 1.8 mg/dL (1.6-2.3) 07/06/20 10:53 Total Bilirubin 0.2 mg/dL (0.2-1.3) 07/06/20 10:53 Direct Bilirubin 0.1 mg/dL (0.0-0.4) 07/06/20 10:53 Neonat Total Bilirubin Not Reportable 07/06/20 10:53 Neonat Direct Bilirubin Not Reportable 07/06/20 10:53 Neonat Indirect Bili Not Reportable 07/06/20 10:53 AST 62 U/L (14-36) H 07/06/20 10:53 ALT 53 U/L (<35) H 07/06/20 10:53 Alkaline Phosphatase 88 U/L (38-126) 07/06/20 10:53 C-Reactive Protein 8.6 mg/L (<10.0) 07/06/20 10:53 Total Protein 6.4 g/dL (6.3-8.2) 07/06/20 10:53 Albumin 3.6 g/dL (3.5-5.0) 07/06/20 10:53 Triglycerides 585 mg/dL (<150) H 07/03/20 07:08 Cholesterol 186.35 mg/dL (0-200) 07/03/20 07:08 LDL Cholesterol Direct 64 mg/dL (<100) 07/03/20 07:08 VLDL Cholesterol, Calc UNABLE TO CALCULATE 07/03/20 07:08 HDL Cholesterol 48 mg/dL (>40) 07/03/20 07:08 TSH 1.68 uIU/mL (0.47-4.68) 07/02/20 18:18 Free T4 0.85 ng/dL (0.78-2.19) 07/01/20 21:56 Urine Opiates Screen NEGATIVE 07/02/20 04:22 Urine Methadone Screen NEGATIVE 07/02/20 04:22 Ur Barbiturates Screen UNCONFIRMED POSITIVE 07/02/20 04:22 Ur Phencyclidine Scrn NEGATIVE 07/02/20 04:22 Ur Amphetamines Screen NEGATIVE 07/02/20 04:22 U Benzodiazepines Scrn NEGATIVE 07/02/20 04:22 Urine Cocaine Screen NEGATIVE 07/02/20 04:22 U Marijuana (THC) Screen NEGATIVE 07/02/20 04:22 SARS-CoV-2 (PCR) NEGATIVE (NEGATIVE) 07/02/20 08:44 Impressions: Foot X-Ray 07/01/20 21:08 IMPRESSION: Soft tissue ulceration of the second digit. No acute osseous abnormality copyright 2011 [employer]- All Rights Reserved Lower Extremity Ultrasound 07/02/20 00:00 IMPRESSION: NO HEMODYNAMICALLY SIGNIFICANT STENOSIS. Stroke Is this a Stroke Patient?: No Acute Heart Failure Is this a Heart Failure Patient?: No
== END 2020-07-06 18:32 | disposition home or self-care (01) | DRG 581 ==
LOC: ER 20:26 → EH 07-02 04:24 → 4S 07-02 12:55
PROVIDERS: ADMIT Emergency Medicine; ATTEND Hospitalist
PROC: 0Y6R0Z0 Detachment at Right 2nd Toe, Complete, Open Approach (ICD-10-PCS; principal; 2020-07-02 11:30)
DX: L03.031 Cellulitis of right toe (principal); E11.621 Type 2 diabetes mellitus with foot ulcer; E66.9 Obesity, unspecified; I10 Essential (primary) hypertension; E78.5 Hyperlipidemia, unspecified; E11.65 Type 2 diabetes mellitus with hyperglycemia; E03.9 Hypothyroidism, unspecified; F32.9 Major depressive disorder, single episode, unspecified; E11.42 Type 2 diabetes mellitus with diabetic polyneuropathy; J44.9 Chronic obstructive pulmonary disease, unspecified; I89.1 Lymphangitis; K21.9 Gastro-esophageal reflux disease without esophagitis; F17.210 Nicotine dependence, cigarettes, uncomplicated; E78.00 Pure hypercholesterolemia, unspecified; Z03.818 Encounter for observation for suspected exposure to other biological agents ruled out; Z79.4 Long term (current) use of insulin; Z79.899 Other long term (current) drug therapy; Z88.6 Allergy status to analgesic agent; Z88.8 Allergy status to other drugs, medicaments and biological substances; Z83.3 Family history of diabetes mellitus; Z82.49 Family history of ischemic heart disease and other diseases of the circulatory system
CPT/HCPCS: 1480; 36415; 80048; 80053; 80061; 80307; 82962; 83036; 83735; 84439; 84443; 85025; 85027; 85652; 86140; 87040; 87635; 88305; 88311; 93005; 93010; 93925; 99285; C9803; J0692; J1644; J1815; J2020; J2250; J2270; J2405; J2704; J3010; J3490; J7030; J7060; J7120

== ENCOUNTER 2020-07-29 21:17 | Inpatient (IN) | payer MEDICARE ==
--- NOTE | 2020-07-29 22:09 | ER Document Report ---
ED Medical Screen (RME) - General Chief Complaint: Foot Pain Stated Complaint: POST OP PAIN Time Seen by Provider: 07/29/20 21:58 Primary Care Provider: TAY SHAW PA-C [Primary Care Provider] - Follow up as needed Mode of Arrival: Ambulatory Information source: Patient Notes: HPI; 49-year-old female presents to the emergency room complaining of worsening right foot pain status post right second toe amputation 4 weeks ago. States she saw Dr. Paul on Monday who removed sutures and cleaned out the wound but she states the pain has gotten worse. Did call her primary care physician who called in a prescription for hydrocodone which she states is not helping with the pain. She denies any fevers. States she is having some draining from the wound PE: Alert and oriented x3. Lungs: Clear to auscultation without rales, rhonchi, wheezes. Heart: Tachycardic without murmurs, rubs, gallops. Positive right pedal pulse. Unable to fully evaluate wound in triage however patient showed provider a picture of the amputation site that is erythematous and shows an open wound. I have greeted and performed a rapid initial assessment of this patient. A comp rehensive ED assessment and evaluation of the patient, analysis of test results and completion of the medical decision making process will be conducted by additional ED providers. I have specifically instructed the patient or family members with the patient to immediately return to any nursing staff should anything change in the patient's condition or with their chief complaint. TRAVEL OUTSIDE OF THE [place] IN LAST 30 DAYS: No - Related Data Allergies/Adverse Reactions: duloxetine [From Cymbalta] Allergy (Verified 07/29/20 21:58) vortioxetine [From Trintellix] Allergy (Verified 07/29/20 21:58) Past Medical History - Social History Frequency of alcohol use: None Drug Abuse: None - Past Medical History Cardiac Medical History: Reports: Hx Hypercholesterolemia, Hx Hypertension Denies: Hx Atrial Fibrillation, Hx Coronary Artery Disease, Hx DVT, Hx Heart Attack, Hx Pulmonary Embolism Pulmonary Medical History: Reports: Hx COPD Denies: Hx Asthma, Hx Sleep Apnea Neurological Medical History: Reports: Hx Migraine. Denies: Hx Seizures Endocrine Medical History: Reports: Hx Diabetes Mellitus Type 2, Hx Hypothyro idism. Denies: Hx Diabetes Mellitus Type 1, Hx Hyperthyroidism Renal/ Medical History: Denies: Hx Peritoneal Dialysis GI Medical History: Reports: Hx Gastroesophageal Reflux Disease. Denies: Hx Cirrhosis, Hx Hepatitis Musculoskeltal Medical History: Reports Hx Arthritis, Denies Hx Fibromyalgia, Denies Hx Gout, Reports Hx Musculoskeletal Deformity, Reports Hx Musculoskeletal Trauma Skin Medical History: Denies Hx Eczema, Denies Hx Psoriasis Psychiatric Medical History: Reports: Hx Depression Infectious Medical History: Denies: Hx Hepatitis Past Surgical History: Reports: Hx Gynecologic Surgery - Uterine ablation and, Hx Orthopedic Surgery - Neck surgery, Hx Tubal Ligation - Immunizations Immunizations up to date: Yes Physical Exam - Vital signs Vitals: Temp Pulse Resp BP Pulse Ox 98.4 F 114 H 17 154/60 H 97 07/29/20 21:29 07/29/20 21:29 07/29/20 21:29 07/29/20 21:29 07/29/20 21:29 Course - Vital Signs Vital signs: Temp Pulse Resp BP Pulse Ox 98.4 F 114 H 17 154/60 H 97 07/29/20 21:29 07/29/20 21:29 07/29/20 21:29 07/29/20 21:29 07/29/20 21:29 Doctor's Discharge - Discharge Referrals: TAY SHAW PA-C [Primary Care Provider] - Follow up as needed
--- NOTE | 2020-07-29 22:56 | RADIOLOGY REPORT (SQ) ---
EXAM DESCRIPTION: XR FOOT 3 OR MORE VIEWS COMPLETED DATE/TME: 07/29/2020 22:05 CLINICAL HISTORY: 49 years, Female, pain s/p toe amputation COMPARISON: July 01, 2020 NUMBER OF VIEWS: 3 TECHNIQUE: 3 views of the right foot were obtained. LIMITATIONS: None. FINDINGS: Since the prior study, there has been amputation of the second toe at the proximal phalangeal base. Small bony fragments are identified at the amputation site and there is some overlying soft tissue gas. No additional bone or joint abnormality is seen. IMPRESSION: Patient is status post second phalangeal amputation with soft tissue gas at the amputation site. Correlation with timing of the patient's surgery and clinical correlation are suggested to determine if this gas is postoperative or due to infection or wound dehiscent. copyright 2010 [employer] [facility] [employer]- All Rights Reserved
[2020-07-30 02:39] LABS: ABSOLUTE BASOPHILS # (AUTO) 0.1 10^3/uL (0.0-0.2); ABSOLUTE EOSINOPHILS # (AUTO) 0.2 10^3/uL (0.0-0.6); ABSOLUTE LYMPHOCYTES (AUTO) 2.6 10^3/uL (0.5-4.7); ABSOLUTE MONOCYTES (AUTO) 1.2 10^3/uL (0.1-1.4); ABSOLUTE NEUT (AUTO) 8.5 10^3/uL (1.7-8.2); BASOPHILS % (AUTO) 0.7 % (0-2); EOSINOPHILS % (AUTO) 1.7 % (0-6); HEMATOCRIT 44.2 % (36.0-47.0); HEMOGLOBIN 14.9 g/dL (12.0-15.5); LYMPHOCYTES % (AUTO) 20.6 % (13-45); MEAN CORPUSCULAR HEMOGLOBIN 30.6 pg (27.0-33.4); MEAN CORPUSCULAR HGB CONC 33.8 g/dL (32.0-36.0); MEAN CORPUSCULAR VOLUME 91 fl (80-97); MONOCYTES % (AUTO) 9.4 % (3-13); PLATELET COUNT 422 10^3/uL (150-450); RED BLOOD COUNT 4.87 10^6/uL (3.72-5.28); RED CELL DISTRIBUTION WIDTH 14.1 % (11.5-14.0); SEGMENTED NEUTROPHILS % (AUTO) 67.6 % (42-78); TOTAL CELLS COUNTED % (AUTO) 100 %; WHITE BLOOD COUNT 12.5 10^3/uL (4.0-10.5)
[2020-07-30 02:55] LABS: ALKALINE PHOSPHATASE 102 U/L (38-126); CALCIUM 10.3 mg/dL (8.4-10.2)
[2020-07-30 02:56] LABS: ALBUMIN 4.8 g/dL (3.5-5.0); ANION GAP 12 (5-19); ASPARTATE AMINO TRANSFERASE 27 U/L (14-36); BILIRUBIN,DIRECT 0.4 mg/dL (0.0-0.4); BILIRUBIN,TOTAL 0.4 mg/dL (0.2-1.3); BLOOD UREA NITROGEN 23 mg/dL (7-20); C-REACTIVE PROTEIN 40.4 mg/L (<10.0); CARBON DIOXIDE 25 mmol/L (22-30); CHLORIDE 101 mmol/L (98-107); GLUCOSE 260 mg/dL (75-110); POTASSIUM 4.7 mmol/L (3.6-5.0); TOTAL PROTEIN 8.2 g/dL (6.3-8.2)
[2020-07-30 03:34] LABS: ERYTHROCYTE SEDIMENTATION RATE 12 mm/hr (0-30)
[2020-07-30] MEDS ORDERED: MORPHINE SULFATE 10 MG/ML INJ IV ONE (03:54)
--- NOTE | 2020-07-30 03:55 | ER Document Report ---
ED General - General Chief Complaint: Foot Pain Stated Complaint: POST OP PAIN Time Seen by Provider: 07/29/20 21:58 Primary Care Provider: TAY SHAW PA-C [Primary Care Provider] - Follow up as needed Mode of Arrival: Wheelchair Information source: Patient Notes: HPI; 49-year-old female presents to the emergency room complaining of worsening right foot pain status post right second toe amputation by Dr. Paul 4 weeks ago. States she saw Dr. Paul on Monday who removed sutures and cleaned out the wound but she states the pain has gotten worse since then. She reports prior to seeing Dr. Paul on Monday she was feeling much better, only having mild pain and ambulating some with her walking shoe. She called her primary care physician who called in a prescription for hydrocodone which she states is not helping with the pain. She denies any fevers. States she is having some draining from the wound. TRAVEL OUTSIDE OF THE [place] IN LAST 30 DAYS: No - Related Data Allergies/Adverse Reactions: duloxetine [From Cymbalta] Allergy (Verified 07/29/20 21:58) vortioxetine [From Trintellix] Allergy (Verified 07/29/20 21:58) Past Medical History - General Information source: Patient - Social History Smoking Status: Former Smoker Frequency of alcohol use: None Drug Abuse: None Family History: Reviewed & Not Pertinent - Past Medical History Cardiac Medical History: Reports: Hx Hypercholesterolemia, Hx Hypertension Denies: Hx Atrial Fibrillation, Hx Coronary Artery Disease, Hx DVT, Hx Heart Attack, Hx Pulmonary Embolism Pulmonary Medical History: Reports: Hx COPD Denies: Hx Asthma, Hx Sleep Apnea Neurological Medical History: Reports: Hx Migraine. Denies: Hx Seizures Endocrine Medical History: Reports: Hx Diabetes Mellitus Type 2, Hx Hypothyroidism. Denies: Hx Diabetes Mellitus Type 1, Hx Hyperthyroidism Renal/ Medical History: Denies: Hx Peritoneal Dialysis GI Medical History: Reports: Hx Gastroesophageal Reflux Disease. Denies: Hx Cirrhosis, Hx Hepatitis Musculoskeletal Medical History: Reports Hx Arthritis, Denies Hx Fibromyalgia, Denies Hx Gout, Reports Hx Musculoskeletal Deformity, Reports Hx Musculoskeletal Trauma Skin Medical History: Denies Hx Eczema, Denies Hx Psoriasis Psychiatric Medical History: Reports: Hx Depression Infectious Medical History: Denies: Hx Hepatitis Past Surgical History: Reports: Hx Gynecologic Surgery - Uterine ablation and, Hx Orthopedic Surgery - Neck surgery, Hx Tubal Ligation - Immunizations Immunizations up to date: Yes Review of Systems - Review of Systems Musculoskeletal: See HPI Skin: See HPI -: Yes All other systems reviewed and negative Physical Exam - Vital signs Vitals: Temp Pulse Resp BP Pulse Ox 98.4 F 114 H 17 154/60 H 97 07/29/20 21:29 07/29/20 21:29 07/29/20 21:29 07/29/20 21:29 07/29/20 21:29 - Notes Notes: PHYSICAL EXAMINATION: GENERAL: Well-appearing, well-nourished and in no acute distress. HEAD: Atraumatic, normocephalic. EYES: Pupils equal round extraocular movements intact, conjunctiva are normal. ENT: Nares patent NECK: Normal range of motion LUNGS: No respiratory distress Musculoskeletal: Normal range of motion NEUROLOGICAL: Normal speech. PSYCH: Normal mood, normal affect. SKIN: Erythema to dorsal surface of right foot, surgical site erythematous, yellowish drainage noted to dressing. Erythema running from right foot that extends just superior to the ankle. Strong dorsalis pedis pulse. Exquisitely tender to palpate the dorsal and medial aspect of the foot. Course - Re-evaluation Re-evalutation: 07/30/20 03:54 Patient recently completed outpatient course of Ceftin (two rounds 7 days each). 07/30/20 05:[address] Jung, on-call surgeon regarding this patient as Dr. Paul is the one who performed the surgery. He states that this would be a medical admission not a surgical admission because it is a diabetic foot. They will consult. 07/30/20 07:45 Spoke with hospitalist, Dr. Beard. Patient will be admitted at this time to the hospitalist service. - Vital Signs Vital signs: Temp Pulse Resp BP Pulse Ox 98.4 F 114 H 17 149/65 H 98 07/29/20 21:29 07/29/20 21:29 07/29/20 21:29 07/30/20 05:01 07/30/20 05:01 - Laboratory Result Diagrams: 07/30/20 02:16 07/30/20 02:16 Laboratory results interpreted by me: 07/30/20 07/30/20 02:16 02:16 WBC 12.5 H RDW 14.1 H Absolute Neuts (auto) 8.5 H BUN 23 H Glucose 260 H Calcium 10.3 H C-Reactive Protein 40.4 H Discharge - Discharge Clinical Impression: Postoperative pain, Surgical site infection, Diabetic foot Condition: Stable Disposition: ADMITTED INPATIENT Admitting Provider: Chirag (Hospitalist) Unit Admitted: Medical Floor Referrals: TAY SHAW PA-C [Primary Care Provider] - Follow up as needed
[2020-07-30] MEDS ORDERED: VANCOMYCIN HCL INJ 1000 MG VIAL IV ONE ×2 (05:09→07:45)
[2020-07-30] MEDS ORDERED: ONDANSETRON 4 MG TAB.RAPDIS PO PRN (08:19)
[2020-07-30] MEDS ORDERED: RINGERS SOLUTION,LACTATED 1,000 ML IV PRN (08:19)
[2020-07-30] MEDS ORDERED: ACETAMINOPHEN 325 MG TABLET PO PRN (08:19)
[2020-07-30] MEDS: OXYCODONE-ACETAMINOPHEN 5-325 MG TABLET PO PRN ×4 (09:03→23:12)
[2020-07-30] MEDS ORDERED: (PENDING PHARMACY ID) (Levocetirizine Dihydrochloride [Allergy Relief] 5 MG) PO SCH (10:00)
[2020-07-30] MEDS ORDERED: OLOPATADINE HCL OP SCH (10:00)
[2020-07-30] MEDS ORDERED: (PENDING PHARMACY ID) (Insulin Glargine,Hum.Rec.Anlog [Toujeo Solostar] 40 UNIT) SQ SCH (10:00)
[2020-07-30] MEDS ORDERED: CEFEPIME 2 GM/D5W RTU 2 GM/50 ML RTUPB IV SCH (10:00)
[2020-07-30] MEDS: DOCUSATE SODIUM 100 MG CAPSULE PO SCH (10:02)
[2020-07-30] MEDS: PANTOPRAZOLE SODIUM 40 MG TABLET.DR PO SCH (10:02)
[2020-07-30] MEDS: CLONIDINE HCL 0.1 MG TABLET PO SCH (10:03)
[2020-07-30] MEDS: CYCLOBENZAPRINE HCL 10 MG TABLET PO SCH (10:03)
[2020-07-30] MEDS: CITALOPRAM HYDROBROMIDE 20 MG TABLET PO SCH (10:03)
[2020-07-30 10:09] LABS: ANION GAP 9 (5-19); BLOOD UREA NITROGEN 19 mg/dL (7-20); CALCIUM 9.3 mg/dL (8.4-10.2); CARBON DIOXIDE 26 mmol/L (22-30); CHLORIDE 101 mmol/L (98-107); GLUCOSE 266 mg/dL (75-110); POTASSIUM 4.2 mmol/L (3.6-5.0)
[2020-07-30] MEDS: CEFEPIME HCL 2 GM in DEXTROSE 5%-WATER 50 ML IV SCH ×2 (11:05→21:22)
[2020-07-30] MEDS: GABAPENTIN 300 MG CAPSULE PO SCH ×3 (12:01→23:12)
[2020-07-30] MEDS: OLOPATADINE HCL 0.1% OPH SOLN 5 ML OU SCH ×2 (13:10→18:00)
[2020-07-30] MEDS: VANCOMYCIN HCL 1,500 MG in DEXTROSE 5%-WATER 250 ML IV SCH ×2 (14:18→22:22)
[2020-07-30] MEDS: HYDROXYZINE PAMOATE 25 MG CAPSULE PO SCH ×2 (14:18→21:21)
[2020-07-30] MEDS: HEPARIN SOD (PORCINE) 5,000 UNIT/ML 1 ML VIAL SUBCUT SCH ×2 (14:19→21:22)
[2020-07-30] MEDS ORDERED: OXYCODONE-ACETAMINOPHEN 5-325 MG TABLET PO PRN (14:30)
[2020-07-30] MEDS: MORPHINE SULFATE 10 MG/ML INJ IV PRN ×2 (15:01→20:46)
[2020-07-30] MEDS ORDERED: GLUCAGON,HUMAN RECOMB 1 MG INJ SUBCUT PRN (17:17)
[2020-07-30] MEDS ORDERED: DEXTROSE 40% GEL 15 GM TUBE PO PRN ×2 (17:17)
[2020-07-30] MEDS ORDERED: DEXTROSE 50%-WATER 25 GM/50 ML DISP.SYRIN IV PRN ×2 (17:17)
--- NOTE | 2020-07-30 17:48 | PDOC CONSULTATION ---
Consultation Consult Date: 07/30/20 Provider Consulted: MADELYN CALL Consult reason:: Infected amputation site right second toe History of Present Illness Admission Date/PCP: 07/30/20 08:21 TAY SHAW PA-C History of Present Illness: RICKIE JOHNSTON is a 49 year old female diabetic who had amputation of the right second toe 07/02/[address] Paul. Patient seen in the clinic 3 days ago and sutures were removed. Patient has been complaining of increasing pain since then and noted to have some yellowish drainage today and went to ED. He was noted to have tenderness around open amputation site. There is a gauze packing in the wound and x-ray there appears to be some gas around the amputation site which may be from air trapping from the gauze. She is complaining of increasing pains today. Her white count slightly elevated. Denies fever or chills. Past Medical History Cardiac Medical History: Reports: Hyperlipidema, Hypertension Denies: Atrial Fibrillation, Coronary Artery Disease, DVT, Myocardial Infarction, Pulmonary Embolism Pulmonary Medical History: Reports: Chronic Obstructive Pulmonary Disease (COPD) Denies: Asthma, Sleep Apnea Neurological Medical History: Reports: Migraine Denies: Seizures Endocrine Medical History: Reports: Diabetes Mellitus Type 2, Hypothyroidism Denies: Diabetes Mellitus Type 1, Hyperthyroidism GI Medical History: Reports: Gastroesophageal Reflux Disease Denies: Cirrhosis, Hepatitis Musculoskeltal Medical History: Reports: Arthritis Denies: Fibromyalgia, Gout Skin Medical History: Denies: Eczema, Psoriasis Psychiatric Medical History: Reports: Depression Hematology: Denies: Anemia, Bleeding Tendencies Past Surgical History Past Surgical History: Reports: Orthopedic Surgery - Neck surgery, Tubal Ligation Social History Smoking Status: Former Smoker Electronic Cigarette use?: Yes Frequency of Alcohol Use: Rare Hx Recreational Drug Use: No Drugs: None Hx Prescription Drug Abuse: No Family History Family History: Reviewed & Not Pertinent Parental Family History Reviewed: Yes Children Family History Reviewed: No Sibling(s) Family History Reviewed.: No Medication/Allergy Home Medications: Insulin Glargine,Hum.rec.anlog [Toujeo Solostar] 80 unit SQ DAILY #1 insuln.pen 03/26/19 Insulin Lispro [Humalog Kwikpen U-100] 0 unit SQ ASDIR PRN #1 insuln.pen 03/26/19 Atorvastatin Calcium [Lipitor 40 mg Tablet] 40 mg PO QHS 07/02/20 Butalb/Acetaminophen/Caffeine [Fioricet (50-325-40 mg) Tablet] 1 tab PO Q6HP PRN 07/02/20 Citalopram Hydrobromide [Celexa] 1 tab PO DAILY 07/02/20 Clonidine HCl [Catapres 0.1 mg Tablet] 0.1 mg PO DAILY 07/02/20 Cyclobenzaprine HCl [Flexeril 10 mg Tablet] 10 mg PO DAILY 07/02/20 Empagliflozin [Jardiance] 25 mg PO DAILY 07/02/20 Gabapentin 600 mg PO QID 07/02/20 Hydroxyzine Pamoate [Vistaril 25 mg Capsule] 25 mg PO TID 07/02/20 Ibuprofen [Ibu] 800 mg PO TID 07/02/20 Levocetirizine Dihydrochloride [Allergy Relief] 5 mg PO DAILY 07/02/20 Naproxen [Naprosyn] 500 mg PO BID 07/02/20 Olopatadine HCl [Pataday] 1 ml OP BID 07/02/20 Omeprazole 40 mg PO DAILY 07/02/20 Telmisartan 20 mg PO DAILY 07/02/20 Topiramate 50 mg PO QID 07/02/20 Hydrocodone/Acetaminophen [[place] 5-325 Tablet] 1 each PO Q8HP PRN 07/30/20 Allergies/Adverse Reactions: duloxetine [From Cymbalta] Allergy (Verified 07/29/20 21:58) vortioxetine [From Trintellix] Allergy (Verified 07/29/20 21:58) Review of Systems Constitutional: PRESENT: as per HPI Musculoskeletal: PRESENT: other - Pains around right second toe amputation site which is open. Some purulent drainage noted. Also has some mild pains along the medial aspect of the right foot close to the heel Physical Exam Vital Signs: Temp Pulse Resp BP Pulse Ox 98.1 F 99 21 H 130/65 H 100 07/30/20 16:00 07/30/20 16:00 07/30/20 16:00 07/30/20 16:00 07/30/20 16:00 Intake & Output 07/29/20 07/30/20 07/31/20 06:59 06:59 06:59 Intake Total 500 Balance 500 Weight 111.8 kg 111.4 kg General appearance: PRESENT: severe distress Head exam: PRESENT: atraumatic Eye exam: PRESENT: conjunctiva pink Mouth exam: PRESENT: moist Neck exam: PRESENT: full ROM Respiratory exam: PRESENT: clear to auscultation anjelica Cardiovascular exam: PRESENT: RRR Pulses: PRESENT: normal radial pulses, normal dorsalis pedis pul Vascular exam: PRESENT: normal capillary refill GI/Abdominal exam: PRESENT: soft Rectal exam: PRESENT: deferred Extremities exam: PRESENT: tenderness - Around the right second toe amputation site which is open at this time. Minimal purulent drainage noted. Also has tenderness along the medial right foot close to the heel. Musculoskeletal exam: PRESENT: full ROM Neurological exam: PRESENT: alert, oriented to person, oriented to place, oriented to time, oriented to situation Psychiatric exam: PRESENT: anxious Skin exam: PRESENT: normal color, warm Results Laboratory Results: 07/30/20 02:16 07/30/20 09:39 07/30/20 07/30/20 07/30/20 02:16 02:16 02:16 WBC 12.5 H RBC 4.87 Hgb 14.9 Hct 44.2 MCV 91 MCH 30.6 MCHC 33.8 RDW 14.1 H Plt Count 422 Seg Neutrophils % 67.6 Sodium 138.4 Potassium 4.7 Chloride 101 Carbon Dioxide 25 Anion Gap 12 BUN 23 H Creatinine 0.60 Est GFR ( Amer) > 60 Glucose 260 H Lactic Acid 1.7 Calcium 10.3 H Total Bilirubin 0.4 AST 27 Alkaline Phosphatase 102 C-Reactive Protein 40.4 H Total Protein 8.2 Albumin 4.8 07/30/20 09:39 WBC RBC Hgb Hct MCV MCH MCHC RDW Plt Count Seg Neutrophils % Sodium 136.4 L Potassium 4.2 Chloride 101 Carbon Dioxide 26 Anion Gap 9 BUN 19 Creatinine 0.56 Est GFR ( Amer) > 60 Glucose 266 H Lactic Acid Calcium 9.3 Total Bilirubin AST Alkaline Phosphatase C-Reactive Protein Total Protein Albumin Impressions: Foot X-Ray 07/29/20 22:05 IMPRESSION: Patient is status post second phalangeal amputation with soft tissue gas at the amputation site. Correlation with timing of the patient's surgery and clinical correlation are suggested to determine if this gas is postoperative or due to infection or wound dehiscent. copyright 2010 [employer]- All Rights Reserved Assessment & Plan - Diagnosis (1) Postoperative pain Is this a current diagnosis for this admission?: Yes (2) Surgical site infection Is this a current diagnosis for this admission?: Yes (3) Cellulitis of second toe, right Is this a current diagnosis for this admission?: Yes (4) Diabetes mellitus type 2 in obese Is this a current diagnosis for this admission?: Yes - Time Time Spent: 30 to 50 Minutes - Inpatient Certification Medical Necessity: Need for Pain Control, Need for IV Antibiotics, Need for Surgery - Plan Summary Plan Summary: 49-year-old female with diabetes mellitus on insulin had amputation of the right second toe by Dr. Paul 07/02/2020. Sutures were removed 3 days ago and since then patient has been complaining of increasing pains along the operative site to the point where she is unable to ambulate. On x-ray there is possibility of gas around the amputation site but it has a gauze packing which may have some trapped air. The packing was removed. Is noted to be tender around the amputation site and some tenderness also along the medial right foot close to the heel. Plans: Continue with IV antibiotics to set up for debridement and possible further amputation of the right second toe in the OR tomorrow. Possible placement of wound VAC after debridement.
[2020-07-30] MEDS ORDERED: INSULIN GLARGINE,HUM.REC.ANLOG 1,000 UNIT/10 ML VIAL SUBCUT SCH (18:00)
--- NOTE | 2020-07-30 19:21 | PDOC H&P ---
History of Present Illness Admission Date/PCP: 07/30/20 08:21 TAY SHAW PA-C History of Present Illness: RICKIE JOHNSTON is a 49 year old female with past medical history significant f or T2DM, depression, HLD, tobacco abuse who presents with worsening right foot pain status post second toe amputation by Dr. Paul approximately [address] Paul outpatient in the office this past Monday and he cleaned the wound and packed it, patient states that after this the wound began becoming more painful and having some drainage and it was much more difficult to walk. Patient was sent to ED by her PCP and home health nurse. General surgery consulted on admission. White blood cells elevated to 12.5 and CRP elevated at 40.4, ESR normal. Right foot x-ray showed soft tissue gas at the amputation site, unclear if infection or wound dehiscence or postoperative findings. [place] martins started on antibiotics. Past Medical History Cardiac Medical History: Reports: Hyperlipidema, Hypertension Denies: Atrial Fibrillation, Coronary Artery Disease, DVT, Myocardial Infarction, Pulmonary Embolism Pulmonary Medical History: Reports: Chronic Obstructive Pulmonary Disease (COPD) Denies: Asthma, Sleep Apnea Neurological Medical History: Reports: Migraine Denies: Seizures Endocrine Medical History: Reports: Diabetes Mellitus Type 2, Hypothyroidism Denies: Diabetes Mellitus Type 1, Hyperthyroidism GI Medical History: Reports: Gastroesophageal Reflux Disease Denies: Cirrhosis, Hepatitis Musculoskeltal Medical History: Reports: Arthritis Denies: Fibromyalgia, Gout Skin Medical History: Denies: Eczema, Psoriasis Psychiatric Medical History: Reports: Depression Hematology: Denies: Anemia, Bleeding Tendencies Past Surgical History Past Surgical History: Reports: Orthopedic Surgery - Neck surgery, Tubal Ligation Social History Information Source: Patient, Emergency Med Personnel Smoking Status: Former Smoker Electronic Cigarette use?: Yes Frequency of Alcohol Use: Rare Hx Recreational Drug Use: No Drugs: None Hx Prescription Drug Abuse: No - Advance Directive Resuscitation Status: Full Code Surrogate healthcare decision maker:: Admitting diagnosis: Right foot surgical diabetic wound infection All aspects of code status discussed with patient/POA including cardioversion, chest compressions, and intubation and the patient/POA indicated they wish to be full code MPOA is designated as: Daughter Jolene Zaldivar Time spent: Greater than 16 minutes Family History Family History: Reviewed & Not Pertinent Parental Family History Reviewed: Yes Children Family History Reviewed: Yes Sibling(s) Family History Reviewed.: Yes Medication/Allergy Home Medications: Insulin Glargine,Hum.rec.anlog [Toujeo Solostar] 80 unit SQ DAILY #1 insuln.pen 03/26/19 Insulin Lispro [Humalog Kwikpen U-100] 0 unit SQ ASDIR PRN #1 insuln.pen 03/26/19 Atorvastatin Calcium [Lipitor 40 mg Tablet] 40 mg PO QHS 07/02/20 Butalb/Acetaminophen/Caffeine [Fioricet (50-325-40 mg) Tablet] 1 tab PO Q6HP PRN 07/02/20 Citalopram Hydrobromide [Celexa] 1 tab PO DAILY 07/02/20 Clonidine HCl [Catapres 0.1 mg Tablet] 0.1 mg PO DAILY 07/02/20 Cyclobenzaprine HCl [Flexeril 10 mg Tablet] 10 mg PO DAILY 07/02/20 Empagliflozin [Jardiance] 25 mg PO DAILY 07/02/20 Gabapentin 600 mg PO QID 07/02/20 Hydroxyzine Pamoate [Vistaril 25 mg Capsule] 25 mg PO TID 07/02/20 Ibuprofen [Ibu] 800 mg PO TID 07/02/20 Levocetirizine Dihydrochloride [Allergy Relief] 5 mg PO DAILY 07/02/20 Naproxen [Naprosyn] 500 mg PO BID 07/02/20 Olopatadine HCl [Pataday] 1 ml OP BID 07/02/20 Omeprazole 40 mg PO DAILY 07/02/20 Telmisartan 20 mg PO DAILY 07/02/20 Topiramate 50 mg PO QID 07/02/20 Hydrocodone/Acetaminophen [[place] 5-325 Tablet] 1 each PO Q8HP PRN 07/30/20 Allergies/Adverse Reactions: duloxetine [From Cymbalta] Allergy (Verified 07/29/20 21:58) vortioxetine [From Trintellix] Allergy (Verified 07/29/20 21:58) Review of Systems All systems: reviewed and no additional remarkable complaints except as stated - Review of systems per HPI, otherwise negative Physical Exam Vital Signs: Temp Pulse Resp BP Pulse Ox 98.1 F 99 21 H 130/65 H 100 07/30/20 16:00 07/30/20 16:00 07/30/20 16:00 07/30/20 16:00 07/30/20 16:00 Intake & Output 07/29/20 07/30/20 07/31/20 06:59 06:59 06:59 Intake Total 760 Balance 760 Weight 111.8 kg 111.4 kg General appearance: PRESENT: no acute distress, obese, well-developed, well- nourished Head exam: PRESENT: atraumatic, normocephalic Eye exam: PRESENT: conjunctiva pink. ABSENT: scleral icterus Mouth exam: PRESENT: moist Respiratory exam: PRESENT: clear to auscultation anjelica. ABSENT: rales, rhonchi, wheezes Cardiovascular exam: PRESENT: RRR. ABSENT: diastolic murmur, rubs, systolic murmur GI/Abdominal exam: PRESENT: normal bowel sounds, soft. ABSENT: distended, guarding, mass, organolmegaly, rebound, tenderness Extremities exam: PRESENT: other - Right foot second toe wound with small amount of purulent material around the outside of it, unclear how deep wound is tracking, extremely tender Neurological exam: PRESENT: alert, awake, oriented to person, oriented to place, oriented to time, oriented to situation Psychiatric exam: PRESENT: appropriate affect, normal mood Skin exam: PRESENT: dry, warm Results Laboratory Results: 07/30/20 02:16 07/30/20 09:39 07/30/20 07/30/20 07/30/20 02:16 02:16 02:16 WBC 12.5 H RBC 4.87 Hgb 14.9 Hct 44.2 MCV 91 MCH 30.6 MCHC 33.8 RDW 14.1 H Plt Count 422 Seg Neutrophils % 67.6 Sodium 138.4 Potassium 4.7 Chloride 101 Carbon Dioxide 25 Anion Gap 12 BUN 23 H Creatinine 0.60 Est GFR ( Amer) > 60 Glucose 260 H Lactic Acid 1.7 Calcium 10.3 H Total Bilirubin 0.4 AST 27 Alkaline Phosphatase 102 C-Reactive Protein 40.4 H Total Protein 8.2 Albumin 4.8 07/30/20 09:39 WBC RBC Hgb Hct MCV MCH MCHC RDW Plt Count Seg Neutrophils % Sodium 136.4 L Potassium 4.2 Chloride 101 Carbon Dioxide 26 Anion Gap 9 BUN 19 Creatinine 0.56 Est GFR ( Amer) > 60 Glucose 266 H Lactic Acid Calcium 9.3 Total Bilirubin AST Alkaline Phosphatase C-Reactive Protein Total Protein Albumin Impressions: Foot X-Ray 07/29/20 22:05 IMPRESSION: Patient is status post second phalangeal amputation with soft tissue gas at the amputation site. Correlation with timing of the patient's surgery and clinical correlation are suggested to determine if this gas is postoperative or due to infection or wound dehiscent. copyright 2010 [employer]- All Rights Reserved Assessment and Plan - Diagnosis (1) Surgical site infection Is this a current diagnosis for this admission?: Yes Plan: Surgery consulted, Dr. Paul performed right second toe amputation approximately 4 weeks prior to admission, patient seen in office on Monday prior to admission with packing, wound deteriorated thereafter Started on vancomycin/cefepime due to immunocompromised and diabetic General surgery following Right foot x-ray reviewed, nonspecific gas findings May need further amputation (2) Cellulitis of second toe, right Is this a current diagnosis for this admission?: Yes Plan: Rest as above (3) Diabetes mellitus type 2 in obese Is this a current diagnosis for this admission?: Yes Plan: Low-dose correctional insulin, Accu-Cheks Toujeo transitioned to Lantus by pharmacy (4) Hyperlipidemia Qualifiers: Hyperlipidemia type: unspecified Qualified Code(s): E78.5 - Hyperlipidemia, unspecified Is this a current diagnosis for this admission?: Yes Plan: Diet controlled (5) Hypertension Qualifiers: Hypertension type: essential hypertension Qualified Code(s): I10 - Essential (primary) hypertension Is this a current diagnosis for this admission?: Yes (6) Breast lump Is this a current diagnosis for this admission?: Yes Plan: Found by patient on self exam, plan to have mammogram outpatient (7) Depression Is this a current diagnosis for this admission?: Yes Plan: Chronic medications continued - Time Time Spent with patient: 35 or more minutes Smoking Cessation Education: 3 to 10 minutes Medications reviewed and adjusted accordingly: Yes Anticipated Discharge Disposition: Home with Home Health Anticipated Discharge Timeframe: within 72 hours - Inpatient Certification Based on my medical assessment, after consideration of the patient's comorbidities, presenting symptoms, or acuity I expect that the services needed warrant INPATIENT care.: Yes I certify that my determination is in accordance with my understanding of Medicare's requirements for reasonable and necessary INPATIENT services [42 CFR 412.3e].: Yes Medical Necessity: Significant Comorbidiites Make Outpatient Treatment Too R isky, Need Close Monitoring Due to Risk of Patient Decompensation, Need for IV Antibiotics, Risk of Complication if Not Cared For in Hospital, Risk of Diagnosis Which Will Require Inpatient Eval/Care/Monitoring
[2020-07-30] MEDS: BUTALB/ACETAMINOPHEN/CAFFEINE 1 TAB EACH PO PRN (21:21)
[2020-07-30] MEDS: ATORVASTATIN CALCIUM 40 MG TABLET PO SCH (21:22)
[2020-07-30] MEDS ORDERED: CETIRIZINE 5 MG TABLET PO SCH (22:00)
[2020-07-31] MEDS: MORPHINE SULFATE 10 MG/ML INJ IV PRN ×4 (02:27→20:03)
[2020-07-31] MEDS: VANCOMYCIN HCL 1,500 MG in DEXTROSE 5%-WATER 250 ML IV SCH ×3 (05:19→22:35)
[2020-07-31] MEDS: OXYCODONE-ACETAMINOPHEN 5-325 MG TABLET PO PRN ×4 (05:19→22:35)
[2020-07-31] MEDS: GABAPENTIN 300 MG CAPSULE PO SCH (05:21)
[2020-07-31] MEDS: HYDROXYZINE PAMOATE 25 MG CAPSULE PO SCH ×3 (05:30→21:18)
[2020-07-31] MEDS: HEPARIN SOD (PORCINE) 5,000 UNIT/ML 1 ML VIAL SUBCUT SCH ×3 (05:30→21:18)
[2020-07-31 06:21] LABS: HEMATOCRIT 40.2 % (36.0-47.0); HEMOGLOBIN 13.4 g/dL (12.0-15.5); MEAN CORPUSCULAR HEMOGLOBIN 29.9 pg (27.0-33.4); MEAN CORPUSCULAR HGB CONC 33.4 g/dL (32.0-36.0); MEAN CORPUSCULAR VOLUME 90 fl (80-97); PLATELET COUNT 326 10^3/uL (150-450); RED BLOOD COUNT 4.49 10^6/uL (3.72-5.28); RED CELL DISTRIBUTION WIDTH 13.9 % (11.5-14.0); WHITE BLOOD COUNT 9.4 10^3/uL (4.0-10.5)
[2020-07-31] MEDS ORDERED: PROPOFOL INJ 200 MG/20 ML VIAL IV ONE (06:39)
[2020-07-31] MEDS ORDERED: KETAMINE HCL INJ 500 MG/10 ML VIAL ONE (06:39)
[2020-07-31] MEDS ORDERED: FENTANYL CITRATE INJ/PF 100 MCG/2 ML AMPUL ONE (06:39)
[2020-07-31] MEDS ORDERED: MIDAZOLAM 2 MG/2 ML INJ ONE (06:39)
[2020-07-31] MEDS ORDERED: HYDROMORPHONE HCL INJ/PF 2 MG/ML AMPULE ONE (06:40)
[2020-07-31 06:47] LABS: ANION GAP 12 (5-19); BLOOD UREA NITROGEN 16 mg/dL (7-20); CALCIUM 9.3 mg/dL (8.4-10.2); CARBON DIOXIDE 27 mmol/L (22-30); CHLORIDE 99 mmol/L (98-107); GLUCOSE 147 mg/dL (75-110); PHOSPHORUS 4.2 mg/dL (2.5-4.5); POTASSIUM 3.9 mmol/L (3.6-5.0)
[2020-07-31] MEDS ORDERED: MORPHINE SULFATE 10 MG/ML INJ IV PRN (07:58)
[2020-07-31] MEDS ORDERED: DIPHENHYDRAMINE HCL 50 MG/ML VIAL IV PRN (07:58)
[2020-07-31] MEDS ORDERED: MEPERIDINE HCL/PF INJ 25 MG/1 ML DISP.SYRIN IV PRN (07:58)
[2020-07-31] MEDS ORDERED: FENTANYL CITRATE INJ/PF 100 MCG/2 ML AMPUL IV PRN ×3 (07:58)
[2020-07-31] MEDS ORDERED: INFLUENZA QUAD (6MOS+) 2020-21 VAC 0.5 ML SYR IM ONE (08:00)
--- NOTE | 2020-07-31 08:25 | Operative Report ---
Nonrecallable Operative Report DATE OF SURGERY: 07/31/20 PREOPERATIVE DIAGNOSIS: Right second toe diabetic foot infection POSTOPERATIVE DIAGNOSIS: Right second toe diabetic foot infection OPERATION: Debridement right second toe amputation site SURGEON: ERIN WU ANESTHESIA: LMAC TISSUE REMOVED OR ALTERED: Tissue right second toe amputation site COMPLICATIONS: None ESTIMATED BLOOD LOSS: 5 cc INTRAOPERATIVE FINDINGS: See note PROCEDURE: Patient was brought to the operating awake alert stable condition placed on the operative table supine position given general anesthesia. The right foot was prepped and draped in usual sterile fashion. The right second toe amputation site which had previously been done was open with some purulent material in the base of the wound. Elliptical incision was made on the dorsum of the amputation site the right second toe. Dissection was carried down through subcutaneous tissue with a 15 blade. The wound was debrided sharply with the 15 blade and Metzenbaum scissors and then the first metatarsal tarsal was re-amputated at its midportion with the bone cutter. Surrounding area was debrided with sharp debridement back to bleeding edges and no evidence of further purulence. The wound was irrigated packed with a Betadine soaked sponge sterile dressing was applied which completed the procedure Estimated blood loss was less than 10 cc sponge needle counts correct x2 the patient was awakened in the operating transferred recovery in stable condition no complications
[2020-07-31] MEDS ORDERED: VANCOMYCIN HCL INJ 1000 MG VIAL IV SCH (10:00)
[2020-07-31] MEDS: CITALOPRAM HYDROBROMIDE 20 MG TABLET PO SCH (10:03)
[2020-07-31] MEDS: CLONIDINE HCL 0.1 MG TABLET PO SCH (10:03)
[2020-07-31] MEDS: PANTOPRAZOLE SODIUM 40 MG TABLET.DR PO SCH (10:03)
[2020-07-31] MEDS: CYCLOBENZAPRINE HCL 10 MG TABLET PO SCH (10:03)
[2020-07-31] MEDS: CEFEPIME HCL 2 GM in DEXTROSE 5%-WATER 50 ML IV SCH ×2 (10:03→21:19)
[2020-07-31] MEDS: DOCUSATE SODIUM 100 MG CAPSULE PO SCH (10:04)
[2020-07-31] MEDS: OLOPATADINE HCL 0.1% OPH SOLN 5 ML OU SCH ×2 (10:04→17:30)
[2020-07-31] MEDS ORDERED: LIDOCAINE 2% INJ-PF (20 MG/ML) 2 ML AMPUL ONE (10:58)
[2020-07-31] MEDS ORDERED: ONDANSETRON HCL INJ/PF 4 MG/2 ML SDV ONE (10:58)
[2020-07-31] MEDS: BUTALB/ACETAMINOPHEN/CAFFEINE 1 TAB EACH PO PRN (11:43)
[2020-07-31 14:56] LABS: VANCOMYCIN,TROUGH 13.3 ug/mL (5.0-20.0)
[2020-07-31] MEDS ORDERED: INSULIN GLARGINE,HUM.REC.ANLOG 1,000 UNIT/10 ML VIAL (PYX) SUBCUT ONE (18:00)
--- NOTE | 2020-07-31 18:27 | PDOC PROGRESS REPORT ---
Subjective Subjective:: RICKIE JOHNSTON is a 49 year old female with past medical history significant for T2DM, depression, HLD, tobacco abuse who presents with worsening right foot pain status post second toe amputation by Dr. Paul approximately [address] Paul outpatient in the office this past Monday and he cleaned the wound and packed it, patient states that after this the wound began becoming more painful and having some drainage and it was much more difficult to walk. Patient was sent to ED by her PCP and home health nurse. General surgery consulted on admission. White blood cells elevated to 12.5 and CRP elevated at 40.4, ESR normal. Right foot x-ray showed soft tissue gas at the amputation site, unclear if infection or wound dehiscence or postoperative findings. Patient started on antibiotics. 07/31/2020 Patient underwent debridement in OR with Dr. Dawn today. Per my discussion with Dr. Dawn and with the patient, things went well overall. Patient states she is still in an significant amount of pain and cannot tell if she feels better overall yet. White blood cells are lower. Patient has no new complaints today. Her blood sugars are running a bit high. She is planning on getting a continuous glucose monitor when her PCP returns from vacation. Reason For Visit: RIGHT FOOT SURGICAL WOUND INFECTION,T2DM Physical Exam Vital Signs: Temp Pulse Resp BP Pulse Ox 98.2 F 95 18 128/63 H 96 07/31/20 16:05 07/31/20 16:05 07/31/20 16:05 07/31/20 16:05 07/31/20 16:05 Intake & Output 07/30/20 07/31/20 08/01/20 06:59 06:59 06:59 Intake Total 1230 1436 Output Total 5 Balance 1230 1431 Weight 111.8 kg 113.8 kg Exam: General appearance: PRESENT: no acute distress, obese, well-developed, well-nourished, states her surgery went well Head exam: PRESENT: atraumatic, normocephalic Eye exam: PRESENT: conjunctiva pink. ABSENT: scleral icterus Mouth exam: PRESENT: moist Respiratory exam: PRESENT: clear to auscultation anjelica. ABSENT: rales, rhonchi, wheezes Cardiovascular exam: PRESENT: RRR. ABSENT: diastolic murmur, rubs, systolic murmur GI/Abdominal exam: PRESENT: normal bowel sounds, soft. ABSENT: distended, guarding, mass, organolmegaly, rebound, tenderness Extremities exam: PRESENT: other - Right foot second toe now with further amputation surgical wound Neurological exam: PRESENT: alert, awake, oriented to person, oriented to place, oriented to time, oriented to situation Psychiatric exam: PRESENT: appropriate affect, normal mood Skin exam: PRESENT: dry, warm Results Laboratory Results: 07/31/20 05:10 07/31/20 05:10 07/31/20 07/31/20 07/31/20 05:10 05:10 05:10 WBC 9.4 RBC 4.49 Hgb 13.4 Hct 40.2 MCV 90 MCH 29.9 MCHC 33.4 RDW 13.9 Plt Count 326 Sodium 137.8 Potassium 3.9 Chloride 99 Carbon Dioxide 27 Anion Gap 12 BUN 16 Creatinine 0.55 Est GFR ( Amer) > 60 Glucose 147 H Calcium 9.3 Phosphorus 4.2 Magnesium 2.1 Impressions: Foot X-Ray 07/29/20 22:05 IMPRESSION: Patient is status post second phalangeal amputation with soft tissue gas at the amputation site. Correlation with timing of the patient's surgery and clinical correlation are suggested to determine if this gas is postoperative or due to infection or wound dehiscent. copyright 2010 [employer]- All Rights Reserved Assessment and Plan - Diagnosis (1) Surgical site infection Is this a current diagnosis for this admission?: Yes Plan: Surgery consulted, Dr. Paul performed right second toe amputation approximately 4 weeks prior to admission, patient seen in office on Monday prior to admission with packing, wound deteriorated thereafter Started on vancomycin/cefepime due to immunocompromised and diabetic General surgery following Right foot x-ray reviewed, nonspecific gas findings Further second toe amputation done by general surgery on 07/31 (2) Cellulitis of second toe, right Is this a current diagnosis for this admission?: Yes Plan: Manage as above (3) Diabetes mellitus type 2 in obese Is this a current diagnosis for this admission?: Yes Plan: Low-dose correctional insulin, Accu-Cheks Toujeo transitioned to Lantus by pharmacy (4) Hyperlipidemia Qualifiers: Hyperlipidemia type: unspecified Qualified Code(s): E78.5 - Hyperlipidemia, unspecified Is this a current diagnosis for this admission?: Yes (5) Hypertension Qualifiers: Hypertension type: essential hypertension Qualified Code(s): I10 - Essential (primary) hypertension Is this a current diagnosis for this admission?: Yes (6) Breast lump Is this a current diagnosis for this admission?: Yes (7) Depression Is this a current diagnosis for this admission?: Yes - Time Time Spent with patient: 25-34 minutes Medications reviewed and adjusted accordingly: Yes Anticipated Discharge Disposition: Home, Self Care Anticipated Discharge Timeframe: within 48 hours - Inpatient Certification Based on my medical assessment, after consideration of the patient's comorbidities, presenting symptoms, or acuity I expect that the services needed warrant INPATIENT care.: Yes I certify that my determination is in accordance with my understanding of Medicare's requirements for reasonable and necessary INPATIENT services [42 CFR 412.3e].: Yes Medical Necessity: Need For IV Fluids, Need for IV Antibiotics
[2020-07-31] MEDS: ATORVASTATIN CALCIUM 40 MG TABLET PO SCH (21:18)
[2020-08-01] MEDS: MORPHINE SULFATE 10 MG/ML INJ IV PRN ×5 (01:45→23:42)
[2020-08-01] MEDS: HEPARIN SOD (PORCINE) 5,000 UNIT/ML 1 ML VIAL SUBCUT SCH ×3 (05:03→21:47)
[2020-08-01] MEDS: OXYCODONE-ACETAMINOPHEN 5-325 MG TABLET PO PRN ×4 (05:04→22:22)
[2020-08-01] MEDS: VANCOMYCIN HCL 1,500 MG in DEXTROSE 5%-WATER 250 ML IV SCH ×3 (05:04→23:42)
[2020-08-01] MEDS: HYDROXYZINE PAMOATE 25 MG CAPSULE PO SCH ×3 (05:04→21:47)
[2020-08-01 05:25] LABS: ANION GAP 8 (5-19); BLOOD UREA NITROGEN 16 mg/dL (7-20); CALCIUM 8.5 mg/dL (8.4-10.2); CARBON DIOXIDE 26 mmol/L (22-30); CHLORIDE 100 mmol/L (98-107); GLUCOSE 228 mg/dL (75-110); POTASSIUM 3.9 mmol/L (3.6-5.0)
[2020-08-01 05:31] LABS: HEMOGLOBIN 12.7 g/dL (12.0-15.5); MEAN CORPUSCULAR HEMOGLOBIN 30.4 pg (27.0-33.4); MEAN CORPUSCULAR HGB CONC 34.4 g/dL (32.0-36.0); MEAN CORPUSCULAR VOLUME 88 fl (80-97); PLATELET COUNT 342 10^3/uL (150-450); RED BLOOD COUNT 4.19 10^6/uL (3.72-5.28); RED CELL DISTRIBUTION WIDTH 13.6 % (11.5-14.0); WHITE BLOOD COUNT 7.5 10^3/uL (4.0-10.5)
[2020-08-01] MEDS: ONDANSETRON HCL INJ/PF 4 MG/2 ML SDV IV PRN (08:47)
[2020-08-01] MEDS ORDERED: DEXTROSE 40% GEL 15 GM TUBE X 2 PO PRN (09:00)
[2020-08-01] MEDS ORDERED: DEXTROSE 50%-WATER SYRINGE 25 GM/50 ML DOSE IV PRN (09:00)
[2020-08-01] MEDS ORDERED: DEXTROSE 50%-WATER SYRINGE 12.5 GM/25 ML DOSE IV PRN (09:00)
[2020-08-01] MEDS ORDERED: DEXTROSE 40% GEL 15 GM TUBE PO PRN (09:00)
[2020-08-01] MEDS ORDERED: GLUCAGON,HUMAN RECOMB 1 MG INJ IM PRN (09:00)
--- NOTE | 2020-08-01 09:33 | PDOC PROGRESS REPORT ---
Subjective Progress Note for:: 08/01/20 Subjective:: Less pains after surgery yesterday for right second toe infection Reason For Visit: RIGHT FOOT SURGICAL WOUND INFECTION,T2DM Physical Exam Vital Signs: Temp Pulse Resp BP Pulse Ox 98.1 F 85 16 133/62 H 94 08/01/20 07:34 08/01/20 07:34 08/01/20 07:34 08/01/20 07:34 08/01/20 07:34 Intake & Output 07/31/20 08/01/20 08/02/20 06:59 06:59 06:59 Intake Total 1230 2158 Output Total 5 Balance 1230 2153 Weight 113.8 kg 113.8 kg Exam: Packing removed from wide debridement of right second toe amputation site. There is no pus and tissues are pink. Results Laboratory Results: 08/01/20 04:44 08/01/20 04:44 08/01/20 08/01/20 04:44 04:44 WBC 7.5 RBC 4.19 Hgb 12.7 Hct 37.0 MCV 88 MCH 30.4 MCHC 34.4 RDW 13.6 Plt Count 342 Sodium 133.9 L Potassium 3.9 Chloride 100 Carbon Dioxide 26 Anion Gap 8 BUN 16 Creatinine 0.45 L Est GFR ( Amer) > 60 Glucose 228 H Calcium 8.5 Impressions: Foot X-Ray 07/29/20 22:05 IMPRESSION: Patient is status post second phalangeal amputation with soft tissue gas at the amputation site. Correlation with timing of the patient's surgery and clinical correlation are suggested to determine if this gas is postoperative or due to infection or wound dehiscent. copyright 2010 [employer]- All Rights Reserved Assessment & Plan - Diagnosis (1) Postoperative pain Is this a current diagnosis for this admission?: Yes (2) Surgical site infection Is this a current diagnosis for this admission?: Yes (3) Cellulitis of second toe, right Is this a current diagnosis for this admission?: Yes (4) Diabetes mellitus type 2 in obese Is this a current diagnosis for this admission?: Yes - Time Critical Time spent with patient: 15-24 minutes Anticipated Discharge Disposition: Home, Self Care Anticipated Discharge Timeframe: within 72 hours - To be followed up at the wound care center - Inpatient Certification Medical Necessity: Need for IV Antibiotics - Plan Summary Plan Summary: 49-year-old female had wide debridement and revision of right second toe amputation done yesterday by Dr. Dawn. Wound looks good and will start wet-to-dry dressings twice a day. Continue IV antibiotics Arrange follow-up with wound care center as soon as discharged. Will sign off and call for any questions
[2020-08-01] MEDS: CLONIDINE HCL 0.1 MG TABLET PO SCH (11:07)
[2020-08-01] MEDS: CYCLOBENZAPRINE HCL 10 MG TABLET PO SCH (11:07)
[2020-08-01] MEDS: PANTOPRAZOLE SODIUM 40 MG TABLET.DR PO SCH (11:07)
[2020-08-01] MEDS: CITALOPRAM HYDROBROMIDE 20 MG TABLET PO SCH (11:07)
[2020-08-01] MEDS: OLOPATADINE HCL 0.1% OPH SOLN 5 ML OU SCH ×2 (11:08→19:24)
[2020-08-01] MEDS: CEFEPIME HCL 2 GM in DEXTROSE 5%-WATER 50 ML IV SCH ×2 (11:08→21:46)
[2020-08-01] MEDS: DOCUSATE SODIUM 100 MG CAPSULE PO SCH ×2 (11:11→14:36)
[2020-08-01] MEDS: INSULIN LISPRO 100 UNIT/ML 3 ML VIAL SUBCUT SCH ×3 (13:43→21:47)
--- NOTE | 2020-08-01 15:49 | PDOC DISCHARGE SUMMARY ---
Impression - Admit/DC Date/PCP Admission Date/Primary Care Provider: 07/30/20 08:21 TAY SHAW PA-C Discharge Date: 08/01/20 - Discharge Diagnosis (1) Surgical site infection Is this a current diagnosis for this admission?: Yes (2) Cellulitis of second toe, right Is this a current diagnosis for this admission?: Yes (3) Diabetes mellitus type 2 in obese Is this a current diagnosis for this admission?: Yes (4) Hyperlipidemia Is this a current diagnosis for this admission?: Yes (5) Hypertension Is this a current diagnosis for this admission?: Yes (6) Breast lump Is this a current diagnosis for this admission?: Yes (7) Depression Is this a current diagnosis for this admission?: Yes - Additional Information Resuscitation Status: Full Code Discharge Activity: Activity As Tolerated Referrals: [facility] [Provider Group] TAY SHAW PA-C [Primary Care Provider] - Follow up as needed Prescriptions: Sulfamethoxazole/Trimethoprim [Bactrim Ds Tablet] 1 each PO BID 5 Days #10 tablet Cephalexin Monohydrate [Keflex 500 mg Capsule] 500 mg PO QID 5 Days #20 capsule Oxycodone HCl/Acetaminophen [Percocet 5-325 mg Tablet] 2 tab PO Q6HP PRN #24 tablet PRN Reason: Home Medications: Insulin Glargine,Hum.rec.anlog [Tojanene Quijano] 80 unit SQ DAILY #1 insuln.pen 03/26/19 Insulin Lispro [Humalog Kwikpen U-100] 0 unit SQ ASDIR PRN #1 insuln.pen 03/26/19 Atorvastatin Calcium [Lipitor 40 mg Tablet] 40 mg PO QHS 07/02/20 Butalb/Acetaminophen/Caffeine [Fioricet (50-325-40 mg) Tablet] 1 tab PO Q6HP PRN 07/02/20 Citalopram Hydrobromide [Celexa] 1 tab PO DAILY 07/02/20 Clonidine HCl [Catapres 0.1 mg Tablet] 0.1 mg PO DAILY 07/02/20 Cyclobenzaprine HCl [Flexeril 10 mg Tablet] 10 mg PO DAILY 07/02/20 Empagliflozin [Jardiance] 25 mg PO DAILY 07/02/20 Gabapentin 600 mg PO QID 07/02/20 Hydroxyzine Pamoate [Vistaril 25 mg Capsule] 25 mg PO TID 07/02/20 Levocetirizine Dihydrochloride [Allergy Relief] 5 mg PO DAILY 07/02/20 Olopatadine HCl [Pataday] 1 ml OP BID 07/02/20 Omeprazole 40 mg PO DAILY 07/02/20 Telmisartan 20 mg PO DAILY 07/02/20 Topiramate 50 mg PO QID 07/02/20 Cephalexin Monohydrate [Keflex 500 mg Capsule] 500 mg PO QID 5 Days #20 capsule 08/01/20 Oxycodone HCl/Acetaminophen [Percocet 5-325 mg Tablet] 2 tab PO Q6HP PRN #24 tablet 08/01/20 Sulfamethoxazole/Trimethoprim [Bactrim Ds Tablet] 1 each PO BID 5 Days #10 tablet 08/01/20 History of Present Illiness History of Present Illness: RICKIE JOHNSTON is a 49 year old female with past medical history significant for T2DM, depression, HLD, tobacco abuse who presents with worsening right foot pain status post second toe amputation by Dr. Paul approximately [address] Paul outpatient in the office this past Monday and he cleaned the wound and packed it, patient states that after this the wound began becoming more painful and having some drainage and it was much more difficult to walk. Patient was sent to ED by her PCP and home health nurse. General surgery consulted on admission. White blood cells elevated to 12.5 and CRP elevated at 40.4, ESR normal. Right foot x-ray showed soft tissue gas at the amputation site, unclear if infection or wound dehiscence or postoperative findings. Patient started on antibiotics. Hospital Course Hospital Course: RICKIE JOHNSTON is a 49 year old female with past medical history significant for T2DM, depression, HLD, tobacco abuse who presents with worsening right foot pain status post second toe amputation by Dr. Paul approximately [address] Paul outpatient in the office this past Monday and he cleaned the wound and packed it, patient states that after this the wound began becoming more painful and having some drainage and it was much more difficult to walk. Patient was sent to ED by her PCP and home health nurse. General surgery consulted on admission. White blood cells elevated to 12.5 and CRP elevated at 40.4, ESR normal. Right foot x-ray showed soft tissue gas at the amputation site, unclear if infection or wound dehiscence or postoperative findings. Patient started on antibiotics. 07/31/2020 Patient underwent debridement in OR with Dr. Dawn today. Per my discussion with Dr. Dawn and with the patient, things went well overall. Patient states she is still in an significant amount of pain and cannot tell if she feels better overall yet. White blood cells are lower. Patient has no new complaints today. Her blood sugars are running a bit high. She is planning on getting a continuous glucose monitor when her PCP returns from vacation. On day of discharge, surgery evaluated the patient's wound and signed off. Basically to follow-up with general surgery and PCP at discharge. Patient given a short course of oral Percocet with no refills. Patient will complete antibiotic course with Keflex and Bactrim for an additional 5 days at discharge. Home health for wound care ordered at discharge. (1) Surgical site infectionresolving Is this a current diagnosis for this admission?: Yes Plan: Surgery consulted, Dr. Paul performed right second toe amputation approximately 4 weeks prior to admission, patient seen in office on Monday prior to admission with packing, wound deteriorated thereafter Started on vancomycin/cefepime while admitted then transition to Keflex/Bactrim at discharge for an additional 5 days General surgery following Right foot x-ray reviewed, nonspecific gas findings Further second toe amputation done by general surgery on 07/31 (2) Cellulitis of second toe, right Is this a current diagnosis for this admission?: Yes Plan: Manage as above (3) Diabetes mellitus type 2 in obese Is this a current diagnosis for this admission?: Yes Plan: Low-dose correctional insulin, Accu-Cheks Toujeo transitioned to Lantus by pharmacy (4) Hyperlipidemia Qualifiers: Hyperlipidemia type: unspecified Qualified Code(s): E78.5 - Hyperlipidemia, unspecified Is this a current diagnosis for this admission?: Yes (5) Hypertension Qualifiers: Hypertension type: essential hypertension Qualified Code(s): I10 - Essential (primary) hypertension Is this a current diagnosis for this admission?: Yes (6) Breast lump Is this a current diagnosis for this admission?: Yes (7) Depression Is this a current diagnosis for this admission?: Yes Physical Exam Vital Signs: Temp Pulse Resp BP Pulse Ox 97.7 F 87 20 124/65 100 08/01/20 11:28 08/01/20 11:28 08/01/20 11:28 08/01/20 11:28 08/01/20 11:28 Intake & Output 07/31/20 08/01/20 08/02/20 06:59 06:59 06:59 Intake Total 1230 2158 240 Output Total 5 Balance 1230 2153 240 Weight 113.8 kg 113.8 kg Exam: General appearance: PRESENT: no acute distress, obese, well-developed, well- nourished, states she feels well and would like to go home Head exam: PRESENT: atraumatic, normocephalic Eye exam: PRESENT: conjunctiva pink. ABSENT: scleral icterus Mouth exam: PRESENT: moist Respiratory exam: PRESENT: clear to auscultation anjelica. ABSENT: rales, rhonchi, wheezes Cardiovascular exam: PRESENT: RRR. ABSENT: diastolic murmur, rubs, systolic murmur GI/Abdominal exam: PRESENT: normal bowel sounds, soft. ABSENT: distended, guarding, mass, organolmegaly, rebound, tenderness Extremities exam: PRESENT: other - Right foot second toe now with further amputation surgical wound, clean and healing Neurological exam: PRESENT: alert, awake, oriented to person, oriented to place, oriented to time, oriented to situation Psychiatric exam: PRESENT: appropriate affect, normal mood Skin exam: PRESENT: dry, warm Results Laboratory Results: WBC 7.5 10^3/uL (4.0-10.5) 08/01/20 04:44 RBC 4.19 10^6/uL (3.72-5.28) 08/01/20 04:44 Hgb 12.7 g/dL (12.0-15.5) 08/01/20 04:44 Hct 37.0 % (36.0-47.0) 08/01/20 04:44 MCV 88 fl (80-97) 08/01/20 04:44 MCH 30.4 pg (27.0-33.4) 08/01/20 04:44 MCHC 34.4 g/dL (32.0-36.0) 08/01/20 04:44 RDW 13.6 % (11.5-14.0) 08/01/20 04:44 Plt Count 342 10^3/uL (150-450) 08/01/20 04:44 Lymph % (Auto) 20.6 % (13-45) 07/30/20 02:16 Burt % (Auto) 9.4 % (3-13) 07/30/20 02:16 Eos % (Auto) 1.7 % (0-6) 07/30/20 02:16 Baso % (Auto) 0.7 % (0-2) 07/30/20 02:16 Absolute Neuts (auto) 8.5 10^3/uL (1.7-8.2) H 07/30/20 02:16 Absolute Lymphs (auto) 2.6 10^3/uL (0.5-4.7) 07/30/20 02:16 Absolute Monos (auto) 1.2 10^3/uL (0.1-1.4) 07/30/20 02:16 Absolute Eos (auto) 0.2 10^3/uL (0.0-0.6) 07/30/20 02:16 Absolute Basos (auto) 0.1 10^3/uL (0.0-0.2) 07/30/20 02:16 Seg Neutrophils % 67.6 % (42-78) 07/30/20 02:16 ESR 12 mm/hr (0-30) 07/30/20 02:16 Sodium 133.9 mmol/L (137-145) L 08/01/20 04:44 Potassium 3.9 mmol/L (3.6-5.0) 08/01/20 04:44 Chloride 100 mmol/L (98-107) 08/01/20 04:44 Carbon Dioxide 26 mmol/L (22-30) 08/01/20 04:44 Anion Gap 8 (5-19) 08/01/20 04:44 BUN 16 mg/dL (7-20) 08/01/20 04:44 Creatinine 0.45 mg/dL (0.52-1.25) L 08/01/20 04:44 Est GFR ( Amer) > 60 (>60) 08/01/20 04:44 Est GFR (MDRD) Non-Af > 60 (>60) 08/01/20 04:44 Glucose 228 mg/dL (75-110) H 08/01/20 04:44 POC Glucose 195 mg/dL (70-110) H 08/01/20 11:31 Hemoglobin A1c % 10.4 % (4.7-6.0) H 07/31/20 05:10 Lactic Acid 1.7 mmol/L (0.7-2.1) 07/30/20 02:16 Calcium 8.5 mg/dL (8.4-10.2) 08/01/20 04:44 Phosphorus 4.2 mg/dL (2.5-4.5) 07/31/20 05:10 Magnesium 2.1 mg/dL (1.6-2.3) 07/31/20 05:10 Total Bilirubin 0.4 mg/dL (0.2-1.3) 07/30/20 02:16 Direct Bilirubin 0.4 mg/dL (0.0-0.4) 07/30/20 02:16 Neonat Total Bilirubin Not Reportable 07/30/20 02:16 Neonat Direct Bilirubin Not Reportable 07/30/20 02:16 Neonat Indirect Bili Not Reportable 07/30/20 02:16 AST 27 U/L (14-36) 07/30/20 02:16 ALT 24 U/L (<35) 07/30/20 02:16 Alkaline Phosphatase 102 U/L (38-126) 07/30/20 02:16 C-Reactive Protein 40.4 mg/L (<10.0) H 07/30/20 02:16 Total Protein 8.2 g/dL (6.3-8.2) 07/30/20 02:16 Albumin 4.8 g/dL (3.5-5.0) 07/30/20 02:16 Time Trough Drawn 13:45 07/31/20 13:45 Vancomycin Trough 13.3 ug/mL (5.0-20.0) 07/31/20 13:45 Impressions: Foot X-Ray 07/29/20 22:05 IMPRESSION: Patient is status post second phalangeal amputation with soft tissue gas at the amputation site. Correlation with timing of the patient's surgery and clinical correlation are suggested to determine if this gas is postoperative or due to infection or wound dehiscent. copyright 2010 [employer]- All Rights Reserved Plan Plan of Treatment: Follow-up with PCP Follow-up with general surgery Complete antibiotic course Time Spent: Greater than 30 Minutes Stroke Is this a Stroke Patient?: No Acute Heart Failure Is this a Heart Failure Patient?: No
--- NOTE | 2020-08-01 16:41 | Progress Note ---
Provider Note Provider Note: Patient and daughter now decided that they would rather have the patient go to a rehab facility for wound care as the daughter states she cannot care for the patient's wound at home. Discussed with patient and daughter. Discussed with nursing and she will reach out to case management to start the process for SNF placement.
[2020-08-01] MEDS ORDERED: INSULIN GLARGINE,HUM.REC.ANLOG 1,000 UNIT/10 ML VIAL SUBCUT SCH (18:00)
[2020-08-01] MEDS: INSULIN GLARGINE,HUM.REC.ANLOG 1,000 UNIT/10 ML VIAL SUBCUT SCH (19:26)
[2020-08-01] MEDS: ATORVASTATIN CALCIUM 40 MG TABLET PO SCH (21:47)
[2020-08-02] MEDS: OXYCODONE-ACETAMINOPHEN 5-325 MG TABLET PO PRN ×4 (03:46→23:04)
[2020-08-02 04:56] LABS: HEMATOCRIT 38.4 % (36.0-47.0); HEMOGLOBIN 13.3 g/dL (12.0-15.5); MEAN CORPUSCULAR HEMOGLOBIN 30.7 pg (27.0-33.4); MEAN CORPUSCULAR HGB CONC 34.7 g/dL (32.0-36.0); MEAN CORPUSCULAR VOLUME 88 fl (80-97); PLATELET COUNT 365 10^3/uL (150-450); RED BLOOD COUNT 4.35 10^6/uL (3.72-5.28); RED CELL DISTRIBUTION WIDTH 13.6 % (11.5-14.0); WHITE BLOOD COUNT 6.9 10^3/uL (4.0-10.5)
[2020-08-02] MEDS: VANCOMYCIN HCL 1,500 MG in DEXTROSE 5%-WATER 250 ML IV SCH (05:14)
[2020-08-02] MEDS: MORPHINE SULFATE 10 MG/ML INJ IV PRN ×4 (05:14→21:19)
[2020-08-02] MEDS: HEPARIN SOD (PORCINE) 5,000 UNIT/ML 1 ML VIAL SUBCUT SCH ×3 (05:14→21:19)
[2020-08-02] MEDS: HYDROXYZINE PAMOATE 25 MG CAPSULE PO SCH ×3 (05:14→21:19)
[2020-08-02] MEDS: INSULIN LISPRO 100 UNIT/ML 3 ML VIAL SUBCUT SCH ×4 (07:39→21:19)
[2020-08-02] MEDS: CEFEPIME HCL 2 GM in DEXTROSE 5%-WATER 50 ML IV SCH ×2 (10:00→13:51)
[2020-08-02] MEDS: PANTOPRAZOLE SODIUM 40 MG TABLET.DR PO SCH (10:18)
[2020-08-02] MEDS: CYCLOBENZAPRINE HCL 10 MG TABLET PO SCH (10:18)
[2020-08-02] MEDS: CLONIDINE HCL 0.1 MG TABLET PO SCH (10:18)
[2020-08-02] MEDS: CITALOPRAM HYDROBROMIDE 20 MG TABLET PO SCH (10:18)
[2020-08-02] MEDS: DOCUSATE SODIUM 100 MG CAPSULE PO SCH (10:18)
[2020-08-02] MEDS: ONDANSETRON HCL INJ/PF 4 MG/2 ML SDV IV PRN (10:26)
[2020-08-02] MEDS: OLOPATADINE HCL 0.1% OPH SOLN 5 ML OU SCH ×2 (10:33→19:36)
--- NOTE | 2020-08-02 13:17 | PDOC PROGRESS REPORT ---
Subjective Progress Note for:: 08/02/20 Subjective:: Less pains Reason For Visit: RIGHT FOOT SURGICAL WOUND INFECTION,T2DM Physical Exam Vital Signs: Temp Pulse Resp BP Pulse Ox 97.6 F 83 17 133/55 H 99 08/02/20 11:26 08/02/20 11:26 08/02/20 11:26 08/02/20 11:26 08/02/20 11:26 Intake & Output 08/01/20 08/02/20 08/03/20 06:59 06:59 06:59 Intake Total 2158 2140 480 Output Total 5 Balance 2153 2140 480 Weight 113.8 kg 113.8 kg Exam: Right second toe amputation site looks dry and pink. Results Laboratory Results: 08/02/20 04:17 08/01/20 04:44 08/02/20 04:17 WBC 6.9 RBC 4.35 Hgb 13.3 Hct 38.4 MCV 88 MCH 30.7 MCHC 34.7 RDW 13.6 Plt Count 365 Impressions: Foot X-Ray 07/29/20 22:05 IMPRESSION: Patient is status post second phalangeal amputation with soft tissue gas at the amputation site. Correlation with timing of the patient's surgery and clinical correlation are suggested to determine if this gas is postoperative or due to infection or wound dehiscent. copyright 2010 [employer]- All Rights Reserved Assessment & Plan - Diagnosis (1) Postoperative pain Is this a current diagnosis for this admission?: Yes (2) Surgical site infection Is this a current diagnosis for this admission?: Yes (3) Cellulitis of second toe, right Is this a current diagnosis for this admission?: Yes (4) Diabetes mellitus type 2 in obese Is this a current diagnosis for this admission?: Yes - Time Critical Time spent with patient: 15-24 minutes Anticipated Discharge Disposition: Detention Facility Anticipated Discharge Timeframe: when bed available - Inpatient Certification Medical Necessity: Need for IV Antibiotics - Plan Summary Plan Summary: 49-year-old female post debridement and revision of right second toe amputation leaving the wound open. She is postop day #2. Patient and her daughter wants her to be in skilled care facility to care for this wound since they are unable to handle it. Meantime, the wound looks good and probably a wound VAC will heal it much faster. Unfortunately we do not have a wound VAC available right now. Would recommend wound VAC when available or started skilled care facility and the patient to be followed up at the wound care center.
--- NOTE | 2020-08-02 13:54 | PDOC PROGRESS REPORT ---
Subjective Subjective:: RICKIE JOHNSTON is a 49 year old female with past medical history significant for T2DM, depression, HLD, tobacco abuse who presents with worsening right foot pain status post second toe amputation by Dr. Paul approximately [address] Paul outpatient in the office this past Monday and he cleaned the wound and packed it, patient states that after this the wound began becoming more painful and having some drainage and it was much more difficult to walk. Patient was sent to ED by her PCP and home health nurse. General surgery consulted on admission. White blood cells elevated to 12.5 and CRP elevated at 40.4, ESR normal. Right foot x-ray showed soft tissue gas at the amputation site, unclear if infection or wound dehiscence or postoperative findings. Patient started on antibiotics. 07/31/2020 Patient underwent debridement in OR with Dr. Dawn today. Per my discussion with Dr. Dawn and with the patient, things went well overall. Patient states she is still in an significant amount of pain and cannot tell if she feels better overall yet. White blood cells are lower. Patient has no new complaints today. Her blood sugars are running a bit high. She is planning on getting a continuous glucose monitor when her PCP returns from vacation. 08/02/2020 Patient and daughter decided yesterday they could not care for the patient's wound and they would like her to go to a rehab facility for wound care. We are currently waiting on placement for this. IV is very tenuous and frequently lost. Changed antibiotics to oral Bactrim and Keflex. Patient has no new complaints. Reason For Visit: RIGHT FOOT SURGICAL WOUND INFECTION,T2DM Physical Exam Vital Signs: Temp Pulse Resp BP Pulse Ox 97.6 F 83 17 133/55 H 99 08/02/20 11:26 08/02/20 11:26 08/02/20 11:26 08/02/20 11:26 08/02/20 11:26 Intake & Output 08/01/20 08/02/20 08/03/20 06:59 06:59 06:59 Intake Total 8 2140 480 Output Total 5 Balance 21520 480 Weight 113.8 kg 113.8 kg Exam: General appearance: PRESENT: no acute distress, obese, well-developed, well- nourished, states she wants placement at SNF Head exam: PRESENT: atraumatic, normocephalic Eye exam: PRESENT: conjunctiva pink. ABSENT: scleral icterus Mouth exam: PRESENT: moist Respiratory exam: PRESENT: clear to auscultation anjelica. ABSENT: rales, rhonchi, wheezes Cardiovascular exam: PRESENT: RRR. ABSENT: diastolic murmur, rubs, systolic mu rmur GI/Abdominal exam: PRESENT: normal bowel sounds, soft. ABSENT: distended, guarding, mass, organolmegaly, rebound, tenderness Extremities exam: PRESENT: other - Right foot second toe now with further amputation surgical wound, clean and healing Neurological exam: PRESENT: alert, awake, oriented to person, oriented to place, oriented to time, oriented to situation Psychiatric exam: PRESENT: appropriate affect, normal mood Skin exam: PRESENT: dry, warm Results Laboratory Results: 08/02/20 04:17 08/01/20 04:44 08/02/20 04:17 WBC 6.9 RBC 4.35 Hgb 13.3 Hct 38.4 MCV 88 MCH 30.7 MCHC 34.7 RDW 13.6 Plt Count 365 Impressions: Foot X-Ray 07/29/20 22:05 IMPRESSION: Patient is status post second phalangeal amputation with soft tissue gas at the amputation site. Correlation with timing of the patient's surgery and clinical correlation are suggested to determine if this gas is postoperative or due to infection or wound dehiscent. copyright 2010 [employer]- All Rights Reserved Assessment and Plan - Diagnosis (1) Surgical site infection Is this a current diagnosis for this admission?: Yes Plan: Surgery consulted, Dr. Paul performed right second toe amputation approximately 4 weeks prior to admission, patient seen in office on Monday prior to admission with packing, wound deteriorated thereafter Started on vancomycin/cefepime due to immunocompromised and diabetic General surgery following Right foot x-ray reviewed, nonspecific gas findings Further second toe amputation done by general surgery on 07/31 General surgery recommends wound VAC (2) Cellulitis of second toe, right Is this a current diagnosis for this admission?: Yes Plan: Manage as above (3) Diabetes mellitus type 2 in obese Is this a current diagnosis for this admission?: Yes Plan: Low-dose correctional insulin, Accu-Cheks Toujeo transitioned to Lantus by pharmacy (4) Hyperlipidemia Qualifiers: Hyperlipidemia type: unspecified Qualified Code(s): E78.5 - Hyperlipidemia, unspecified Is this a current diagnosis for this admission?: Yes (5) Hypertension Qualifiers: Hypertension type: essential hypertension Qualified Code(s): I10 - Essential (primary) hypertension Is this a current diagnosis for this admission?: Yes (6) Breast lump Is this a current diagnosis for this admission?: Yes (7) Depression Is this a current diagnosis for this admission?: Yes - Time Medications reviewed and adjusted accordingly: Yes Anticipated Discharge Disposition: Shelter Facility Anticipated Discharge Timeframe: within 24 hours - Inpatient Certification Based on my medical assessment, after consideration of the patient's comorbidities, presenting symptoms, or acuity I expect that the services needed warrant INPATIENT care.: Yes I certify that my determination is in accordance with my understanding of Medicare's requirements for reasonable and necessary INPATIENT services [42 CFR 412.3e].: Yes Medical Necessity: Significant Comorbidiites Make Outpatient Treatment Too Risky, Need Close Monitoring Due to Risk of Patient Decompensation, Risk of Complication if Not Cared For in Hospital, Risk of Diagnosis Which Will Require Inpatient Eval/Care/Monitoring
[2020-08-02] MEDS: CEPHALEXIN 500 MG CAPSULE PO SCH ×3 (15:28→23:00)
[2020-08-02] MEDS: SULFAMETHOXAZOLE/TRIMETHOPRIM 800-160 MG TABLET PO SCH (15:32)
[2020-08-02] MEDS ORDERED: FAMOTIDINE 20 MG TABLET PO SCH (18:00)
[2020-08-02] MEDS: INSULIN GLARGINE,HUM.REC.ANLOG 1,000 UNIT/10 ML VIAL SUBCUT SCH (18:37)
[2020-08-02] MEDS: ATORVASTATIN CALCIUM 40 MG TABLET PO SCH (21:19)
[2020-08-03] MEDS: OXYCODONE-ACETAMINOPHEN 5-325 MG TABLET PO PRN ×3 (04:41→18:39)
[2020-08-03] MEDS: HYDROXYZINE PAMOATE 25 MG CAPSULE PO SCH ×3 (05:17→21:31)
[2020-08-03] MEDS: HEPARIN SOD (PORCINE) 5,000 UNIT/ML 1 ML VIAL SUBCUT SCH ×3 (05:17→21:32)
[2020-08-03] MEDS: CEPHALEXIN 500 MG CAPSULE PO SCH ×4 (05:18→23:26)
[2020-08-03] MEDS: PANTOPRAZOLE SODIUM 40 MG TABLET.DR PO SCH (05:18)
[2020-08-03] MEDS: INSULIN LISPRO 100 UNIT/ML 3 ML VIAL SUBCUT SCH ×4 (07:53→21:31)
[2020-08-03] MEDS: MORPHINE SULFATE 10 MG/ML INJ IV PRN ×3 (08:11→22:32)
[2020-08-03] MEDS: OLOPATADINE HCL 0.1% OPH SOLN 5 ML OU SCH ×2 (09:49→18:01)
[2020-08-03] MEDS: CITALOPRAM HYDROBROMIDE 20 MG TABLET PO SCH (09:50)
[2020-08-03] MEDS: CLONIDINE HCL 0.1 MG TABLET PO SCH (09:50)
[2020-08-03] MEDS: SULFAMETHOXAZOLE/TRIMETHOPRIM 800-160 MG TABLET PO SCH ×2 (09:50→18:00)
[2020-08-03] MEDS: CYCLOBENZAPRINE HCL 10 MG TABLET PO SCH (09:50)
[2020-08-03] MEDS: DOCUSATE SODIUM 100 MG CAPSULE PO SCH (09:50)
[2020-08-03] MEDS: INSULIN GLARGINE,HUM.REC.ANLOG 1,000 UNIT/10 ML VIAL SUBCUT SCH (18:01)
[2020-08-03] MEDS: ATORVASTATIN CALCIUM 40 MG TABLET PO SCH (21:31)
[2020-08-04] MEDS: OXYCODONE-ACETAMINOPHEN 5-325 MG TABLET PO PRN ×3 (03:20→15:31)
[2020-08-04] MEDS: PANTOPRAZOLE SODIUM 40 MG TABLET.DR PO SCH (05:21)
[2020-08-04] MEDS: CEPHALEXIN 500 MG CAPSULE PO SCH ×2 (05:21→12:30)
[2020-08-04] MEDS: HEPARIN SOD (PORCINE) 5,000 UNIT/ML 1 ML VIAL SUBCUT SCH ×2 (05:21→14:00)
[2020-08-04] MEDS: HYDROXYZINE PAMOATE 25 MG CAPSULE PO SCH ×2 (05:22→14:00)
[2020-08-04] MEDS: INSULIN LISPRO 100 UNIT/ML 3 ML VIAL SUBCUT SCH ×3 (08:32→16:42)
[2020-08-04] MEDS: CLONIDINE HCL 0.1 MG TABLET PO SCH (09:54)
[2020-08-04] MEDS: CYCLOBENZAPRINE HCL 10 MG TABLET PO SCH (09:54)
[2020-08-04] MEDS: CITALOPRAM HYDROBROMIDE 20 MG TABLET PO SCH (09:54)
[2020-08-04] MEDS: SULFAMETHOXAZOLE/TRIMETHOPRIM 800-160 MG TABLET PO SCH (09:54)
[2020-08-04] MEDS: DOCUSATE SODIUM 100 MG CAPSULE PO SCH (09:54)
[2020-08-04] MEDS: OLOPATADINE HCL 0.1% OPH SOLN 5 ML OU SCH (09:55)
[2020-08-04] MEDS: MORPHINE SULFATE 10 MG/ML INJ IV PRN (12:26)
[2020-08-04] MEDS: BUTALB/ACETAMINOPHEN/CAFFEINE 1 TAB EACH PO PRN (12:30)
[2020-08-04 16:09] VITALS: BP 148/74
== END 2020-08-04 16:50 | disposition home health service (06) | DRG 858 ==
LOC: ER 21:17 → EH 07-30 08:21 → 4N 07-30 12:45
PROVIDERS: ADMIT Internal Medicine; ATTEND Internal Medicine
PROC: 0Y6R0Z2 Detachment at Right 2nd Toe, Mid, Open Approach (ICD-10-PCS; principal; 2020-07-31 07:30)
DX: T81.42XA Infection following a procedure, deep incisional surgical site, initial encounter (principal); Y83.5 Amputation of limb(s) as the cause of abnormal reaction of the patient, or of later complication, without mention of misadventure at the time of the procedure; E11.9 Type 2 diabetes mellitus without complications; L03.031 Cellulitis of right toe; E78.5 Hyperlipidemia, unspecified; I10 Essential (primary) hypertension; N63.0 Unspecified lump in unspecified breast; F32.9 Major depressive disorder, single episode, unspecified; J44.9 Chronic obstructive pulmonary disease, unspecified; K21.9 Gastro-esophageal reflux disease without esophagitis; E03.9 Hypothyroidism, unspecified; E78.00 Pure hypercholesterolemia, unspecified; G89.18 Other acute postprocedural pain; Z79.4 Long term (current) use of insulin; Z79.899 Other long term (current) drug therapy; Z79.891 Long term (current) use of opiate analgesic; Z87.891 Personal history of nicotine dependence; Z88.6 Allergy status to analgesic agent; Z88.8 Allergy status to other drugs, medicaments and biological substances
CPT/HCPCS: 01480; 36415; 80048; 80053; 80202; 82962; 83036; 83605; 83735; 84100; 85025; 85027; 85652; 86140; 90471; 90686; 96365; 96375; 99285; G0008; J0692; J1170; J1644; J1815; J2250; J2270; J2405; J2704; J3010; J3370; J3490; J7060; J7120; S0119

== ENCOUNTER → 2020-08-05 | Outpatient (CLI) | payer MEDICARE ==
--- NOTE | 2020-08-05 13:03 | RADIOLOGY REPORT (SQ) ---
EXAM DESCRIPTION: CHEST PA/LATERAL IMAGES COMPLETED DATE/TIME: 08/05/2020 12:12 pm REASON FOR STUDY: PNEUMOTHORAX COMPARISON: None. EXAM PARAMETERS: NUMBER OF VIEWS: two views TECHNIQUE: Digital Frontal and Lateral radiographic views of the chest acquired. RADIATION DOSE: NA LIMITATIONS: none FINDINGS: LUNGS AND PLEURA: No opacities, masses or pneumothorax. No pleural effusion. MEDIASTINUM AND HILAR STRUCTURES: No masses or contour abnormalities. HEART AND VASCULAR STRUCTURES: Heart normal size. No evidence for failure. BONES: No acute findings. HARDWARE: None in the chest. OTHER: No other significant finding. IMPRESSION: NO SIGNIFICANT RADIOGRAPHIC FINDING IN THE CHEST. TECHNICAL DOCUMENTATION: JOB ID: [id number] 2010 [employer]- All Rights Reserved Reading location - IP/workstation name: [email or web address]
--- NOTE | 2020-08-05 13:08 | RADIOLOGY REPORT (SQ) ---
EXAM DESCRIPTION: FOOT RIGHT COMPLETE IMAGES COMPLETED DATE/TIME: 08/05/2020 12:12 pm REASON FOR STUDY: PNEUMOTHORAX, NON PRESSURE CHRONIC ULCER OF [place] FEET L97.514 NON-PRS CHRONIC ULCE R OTH PRT RIGHT FOOT W NECROSIS J93.9 PNEUMOTHORAX, UNSPECIFIED L97.524 NON-PRS CHRONIC ULCER OTH PRT LEFT FOOT W NECROSIS O COMPARISON: 07/29/2020 NUMBER OF VIEWS: Three views. TECHNIQUE: AP, lateral and oblique radiographic images acquired of the right foot. LIMITATIONS: None. FINDINGS: MINERALIZATION: Normal. BONES: Amputation of the 2nd digit. A small remaining fragment of the 2nd proximal phalanx is no ashley corwin evident. Has there been a 2nd surgery? There appears to have been some bone destruction of the lateral aspect of the head of the 2nd metatarsal. JOINTS: No effusions. SOFT TISSUES: No soft tissue swelling. No foreign body. OTHER: No other significant finding. IMPRESSION: The small portion of the base of the 2nd proximal phalanx that was present on 07/29/2020 is no longer seen. Has there been a 2nd surgery? If not, cannot exclude osteomyelitis with bone de struction of that small fragment. Additionally, there appears to have been some bone destruction in the lateral aspect of the head of the 2nd metatarsal head may suggest osteomyelitis. TECHNICAL DOCUMENTATION: JOB ID: [id number] 2010 [employer]- All Rights Reserved Reading location - IP/workstation name: [email or web address]
--- NOTE | 2020-08-05 13:09 | RADIOLOGY REPORT (SQ) ---
EXAM DESCRIPTION: FOOT LEFT COMPLETE IMAGES COMPLETED DATE/TIME: 08/05/2020 12:12 pm REASON FOR STUDY: PNEUMOTHORAX, NON PRESSURE CHRONIC ULCER OF [place] FEET L97.514 NON-PRS CHRONIC ULCE R OTH PRT RIGHT FOOT W NECROSIS J93.9 PNEUMOTHORAX, UNSPECIFIED L97.524 NON-PRS CHRONIC ULCER OTH PRT LEFT FOOT W NECROSIS O COMPARISON: None. NUMBER OF VIEWS: Three views. TECHNIQUE: AP, lateral and oblique radiographic images acquired of the left foot. LIMITATIONS: None. FINDINGS: MINERALIZATION: Normal. BONES: No acute fracture or dislocation. No evidence of osteomyelitis. No worrisome bone lesions. JOINTS: No effusions. SOFT TISSUES: No soft tissue swelling. No foreign body. OTHER: No other significant finding. IMPRESSION: NEGATIVE STUDY OF THE LEFT FOOT. NO RADIOGRAPHIC EVIDENCE OF OSTEOMYELITIS. TECHNICAL DOCUMENTATION: JOB ID: [id number] 2010 [employer]- All Rights Reserved Reading location - IP/workstation name: [email or web address]
[2020-08-05 13:20] LABS: ABSOLUTE BASOPHILS # (AUTO) 0.1 10^3/uL (0.0-0.2); ABSOLUTE EOSINOPHILS # (AUTO) 0.2 10^3/uL (0.0-0.6); ABSOLUTE LYMPHOCYTES (AUTO) 2.1 10^3/uL (0.5-4.7); ABSOLUTE NEUT (AUTO) 8.4 10^3/uL (1.7-8.2); EOSINOPHILS % (AUTO) 1.5 % (0-6); HEMATOCRIT 42.2 % (36.0-47.0); HEMOGLOBIN 14.5 g/dL (12.0-15.5); LYMPHOCYTES % (AUTO) 17.8 % (13-45); MEAN CORPUSCULAR HEMOGLOBIN 30.3 pg (27.0-33.4); MEAN CORPUSCULAR HGB CONC 34.4 g/dL (32.0-36.0); MEAN CORPUSCULAR VOLUME 88 fl (80-97); MONOCYTES % (AUTO) 8.4 % (3-13); PLATELET COUNT 504 10^3/uL (150-450); RED CELL DISTRIBUTION WIDTH 13.3 % (11.5-14.0); SEGMENTED NEUTROPHILS % (AUTO) 71.3 % (42-78); TOTAL CELLS COUNTED % (AUTO) 100 %; WHITE BLOOD COUNT 11.8 10^3/uL (4.0-10.5)
[2020-08-05 13:39] LABS: ALBUMIN 4.4 g/dL (3.5-5.0); ALKALINE PHOSPHATASE 117 U/L (38-126); ANION GAP 13 (5-19); ASPARTATE AMINO TRANSFERASE 44 U/L (14-36); BILIRUBIN,DIRECT 0.3 mg/dL (0.0-0.4); BILIRUBIN,TOTAL 0.3 mg/dL (0.2-1.3); BLOOD UREA NITROGEN 15 mg/dL (7-20); C-REACTIVE PROTEIN 20.2 mg/L (<10.0); CALCIUM 10.3 mg/dL (8.4-10.2); CARBON DIOXIDE 30 mmol/L (22-30); CHLORIDE 94 mmol/L (98-107); GLUCOSE 181 mg/dL (75-110); POTASSIUM 4.6 mmol/L (3.6-5.0); TOTAL PROTEIN 7.8 g/dL (6.3-8.2)
[2020-08-05 13:55] LABS: ERYTHROCYTE SEDIMENTATION RATE 37 mm/hr (0-30)
== END ==
LOC: OD 11:27
PROVIDERS: ATTEND Nurse Practitioner Family
DX: L97.514 Non-pressure chronic ulcer of other part of right foot with necrosis of bone (principal); L97.524 Non-pressure chronic ulcer of other part of left foot with necrosis of bone; J93.9 Pneumothorax, unspecified
CPT/HCPCS: 36415; 71046; 80053; 85025; 85652; 86140

== ENCOUNTER 2020-08-20 18:24 | Emergency (ER) | payer MEDICARE ==
--- NOTE | 2020-08-20 20:10 | ER Document Report ---
ED Medical Screen (RME) - General Chief Complaint: Wound Recheck Stated Complaint: CAST REMOVAL Time Seen by Provider: 08/20/20 20:08 Primary Care Provider: ANGELO NGUYEN NP, PHOTOGRAPHIC SPOTTER [Primary Care Provider] - Follow up as needed Mode of Arrival: Ambulatory Information source: Patient Notes: Patient is a 49-year-old female who has an amputated toe on the right foot with a wound VAC and there is also casted. Apparently the cast is now too tight and the wound VAC is not able to maintain pressure. She was told to come and have the cast removed within 2 hours- of which this time is almost up. physical exam General nontoxic Musculoskeletal large splint/cast to the right lower extremity all the way to the toes Neuro no focal deficits I have greeted and performed a rapid initial assessment of this patient. A comprehensive ED assessment and evaluation of the patient, analysis of test results and completion of the medical decision making process will be conducted by additional ED providers. TRAVEL OUTSIDE OF THE [place] IN LAST 30 DAYS: No - Related Data Allergies/Adverse Reactions: duloxetine [From Cymbalta] Allergy (Verified 07/29/20 21:58) vortioxetine [From Trintellix] Allergy (Verified 07/29/20 21:58) Past Medical History - Past Medical History Cardiac Medical History: Reports: Hx Hypercholesterolemia, Hx Hypertension Denies: Hx Atrial Fibrillation, Hx Coronary Artery Disease, Hx DVT, Hx Heart Attack, Hx Pulmonary Embolism Pulmonary Medical History: Reports: Hx COPD Denies: Hx Asthma, Hx Sleep Apnea Neurological Medical History: Reports: Hx Migraine. Denies: Hx Seizures Endocrine Medical History: Reports: Hx Diabetes Mellitus Type 2, Hx Hypothyroidism. Denies: Hx Diabetes Mellitus Type 1, Hx Hyperthyroidism Renal/ Medical History: Denies: Hx Peritoneal Dialysis GI Medical History: Reports: Hx Gastroesophageal Reflux Disease. Denies: Hx Cirrhosis, Hx Hepatitis Musculoskeltal Medical History: Reports Hx Arthritis, Denies Hx Fibromyalgia, Denies Hx Gout, Reports Hx Musculoskeletal Deformity, Reports Hx Musculoskeletal Trauma Skin Medical History: Denies Hx Eczema, Denies Hx Psoriasis Psychiatric Medical History: Reports: Hx Depression Infectious Medical History: Denies: Hx Hepatitis Past Surgical History: Reports: Hx Gynecologic Surgery - Uterine ablation and, Hx Orthopedic Surgery - Neck surgery, Hx Tubal Ligation - Immunizations Immunizations up to date: Yes Physical Exam - Vital signs Vitals: Temp Pulse Resp BP Pulse Ox 98.7 F 103 H 16 143/67 H 99 08/20/20 18:31 08/20/20 18:31 08/20/20 18:31 08/20/20 18:31 08/20/20 18:31 Course - Vital Signs Vital signs: Temp Pulse Resp BP Pulse Ox 98.7 F 103 H 16 143/67 H 99 08/20/20 18:31 08/20/20 18:31 08/20/20 18:31 08/20/20 18:31 08/20/20 18:31 Doctor's Discharge - Discharge Referrals: ANGELO NGUYEN PHOTOGRAPHIC SPOTTER, PHOTOGRAPHIC SPOTTER [Primary Care Provider] - Follow up as needed
[2020-08-20] MEDS ORDERED: MORPHINE SULFATE 10 MG/ML INJ IM ONE (21:08)
--- NOTE | 2020-08-20 21:09 | ER Document Report ---
ED General - General Chief Complaint: Wound Recheck Stated Complaint: CAST REMOVAL Time Seen by Provider: 08/20/20 20:08 Primary Care Provider: ANGELO NGUYEN RESERVATIONS SPECIALIST, RESERVATIONS SPECIALIST [NURSE PRACTITIONER] - Follow up as needed Mode of Arrival: Ambulatory Information source: Patient Notes: Patient is a 49-year-old female presents the emergency department with complaints of wound VAC malfunction. Patient reports she has a wound VAC to her right foot after having a right second toe amputation done on 07/02. Patient reports she was at the wound care clinic today where they placed a new cast over her wound VAC. She states the wound VAC started alarming, they called the clinic and they told her to come to the emergency department to have the cast removed. TRAVEL OUTSIDE OF THE [place] IN LAST 30 DAYS: No - Related Data Allergies/Adverse Reactions: duloxetine [From Cymbalta] Allergy (Verified 07/29/20 21:58) vortioxetine [From Trintellix] Allergy (Verified 07/29/20 21:58) Past Medical History - General Information source: Patient - Social History Smoking Status: Never Smoker Family History: Reviewed & Not Pertinent Patient has homicidal ideation: No - Past Medical History Cardiac Medical History: Reports: Hx Hypercholesterolemia, Hx Hypertension Denies: Hx Atrial Fibrillation, Hx Coronary Artery Disease, Hx DVT, Hx Heart Attack, Hx Pulmonary Embolism Pulmonary Medical History: Reports: Hx COPD Denies: Hx Asthma, Hx Sleep Apnea Neurological Medical History: Reports: Hx Migraine. Denies: Hx Seizures Endocrine Medical History: Reports: Hx Diabetes Mellitus Type 2, Hx Hypothyroidism. Denies: Hx Diabetes Mellitus Type 1, Hx Hyperthyroidism Renal/ Medical History: Denies: Hx Peritoneal Dialysis GI Medical History: Reports: Hx Gastroesophageal Reflux Disease. Denies: Hx Ci rrhosis, Hx Hepatitis Musculoskeletal Medical History: Reports Hx Arthritis, Denies Hx Fibromyalgia, Denies Hx Gout, Reports Hx Musculoskeletal Deformity, Reports Hx Musculoskeletal Trauma Skin Medical History: Denies Hx Eczema, Denies Hx Psoriasis Psychiatric Medical History: Reports: Hx Depression Infectious Medical History: Denies: Hx Hepatitis Past Surgical History: Reports: Hx Gynecologic Surgery - Uterine ablation and, Hx Orthopedic Surgery - Neck surgery, Hx Tubal Ligation - Immunizations Immunizations up to date: Yes Review of Systems - Review of Systems -: Yes All other systems reviewed and negative Physical Exam - Vital signs Vitals: Temp Pulse Resp BP Pulse Ox 98.7 F 103 H 16 143/67 H 99 08/20/20 18:31 08/20/20 18:31 08/20/20 18:31 08/20/20 18:31 08/20/20 18:31 - Notes Notes: PHYSICAL EXAMINATION: GENERAL: Well-appearing, well-nourished and in no acute distress. HEAD: Atraumatic, normocephalic. EYES: Pupils equal round extraocular movements intact, conjunctiva are normal. ENT: Nares patent NECK: Normal range of motion LUNGS: No respiratory distress Musculoskeletal: Normal range of motion NEUROLOGICAL: Normal speech. PSYCH: Normal mood, normal affect. SKIN: Surgical wound noted to right foot at base of second toe which has been removed. Skin at the surgical site is pink, no erythema, no drainage. Course - Re-evaluation Re-evalutation: 08/20/20 21:20 Cast has been removed by PCT. There is a wound VAC dressing in place to the right foot over the surgical site that extends up her leg. I told the patient and her daughter that I would consult surgery to find out if they want us to remove the wound VAC dressing as the wound VAC is not attached and apparently malfunctioning. The patient and daughter have asked me who the on-call surgeon is. They do not want me consulting surgery for recommendation if it is Dr. Paul. The patient and daughter are communicating to me that they are very unhappy with the care they had received initially at this hospital which is why they do not want me contacting him. They further have requested to speak to the charge nurse to make a formal complaint regarding the fact that they feel they had a delay in care tonight. 08/20/20 21:41 Dr. Paul is the surgeon on-call so I have not consulted him at this time. I did speak with my attending physician, Dr. Hay regarding recommendations about the wound VAC dressing. The patient does have an appointment with the wound care center in the morning. We will at this time remove the wound VAC dressing and place a sterile dressing over the site so that wound care can place a new wound VAC to the site tomorrow morning. This is what the patient and daughter are requesting as well. - Vital Signs Vital signs: Temp Pulse Resp BP Pulse Ox 98.2 F 85 16 135/66 H 94 08/20/20 22:14 08/20/20 22:14 11/05/20 22:14 08/20/20 22:14 08/20/20 22:14 Discharge - Discharge Clinical Impression: Cast removal, Encounter for wound re-check Condition: Stable Disposition: HOME, SELF-CARE Additional Instructions: Please keep the appointment you have tomorrow morning for the wound care clinic. Return with any new or worsening concerns. Referrals: ANGELO NGUYEN NP, RESERVATIONS SPECIALIST [NURSE PRACTITIONER] - Follow up as needed
[2020-08-20 22:27] VITALS: BP 135/66
== END 2020-08-20 23:00 | disposition home or self-care (01) ==
LOC: ER 18:24
DX: T81.89XA Other complications of procedures, not elsewhere classified, initial encounter (principal); Y83.9 Surgical procedure, unspecified as the cause of abnormal reaction of the patient, or of later complication, without mention of misadventure at the time of the procedure; Z98.51 Tubal ligation status; E11.9 Type 2 diabetes mellitus without complications; E78.00 Pure hypercholesterolemia, unspecified; I10 Essential (primary) hypertension
CPT/HCPCS: 99284; 96372; J2270

== ENCOUNTER → 2020-09-07 | Outpatient (CLI) | payer MEDICAID, MEDICARE ==
--- NOTE | 2020-09-08 09:43 | RADIOLOGY REPORT (SQ) ---
EXAM DESCRIPTION: MRI HEAD COMBO IMAGES COMPLETED DATE/TIME: 09/07/2020 4:48 pm REASON FOR STUDY: H91.8X9 OTHER SPECIFIED HEARING LOSS, UNSPECIFIED EAR H91.8X9 OTHER SPECIFIED HEA RING LOSS, UNSPECIFIED EAR M54.2 CERVICALGIA M54.5 LOW BACK PAIN COMPARISON: None. TECHNIQUE: Multiplanar imaging includes noncontrasted T1, T2, FLAIR, diffusion with ADC map and post gadolinium contrast T1 sequences. Images stored on PACS. CONTRAST TYPE AND DOSE: 20 mL Prohance. RENAL FUNCTION: Not indicated. ACR Type II contrast agent associated with few, if any, unconfounded cases of NSF LIMITATIONS: None. FINDINGS: ANATOMY: No anomalies. Normal vascular flow voids. Pituitary fossa normal. CSF SPACES: Normal in size and contour. No hemorrhage. CEREBRUM: Sulci and gyri normal in size and contour. No evidence of hemorrhage, mass, or extraaxial fluid collection. No abnormal enhancement post contrast. POSTERIOR FOSSA: No signal alteration. No hemorrhage. No edema, masses, or mass effect. Internal maxine tory canals, cerebellopontine angles are normal. Small amount of fluid in the right mastoids. No enh ancing lesions. No abnormal enhancement post contrast. DIFFUSION IMAGING: Negative for acute or subacute infarction. ORBITS: No masses. Globes normal. PARANASAL SINUSES: No fluid levels. Mucosa normal. OTHER: No other significant finding. IMPRESSION: No acute findings in the brain. Small amount of fluid in the right mastoids. EVIDENCE OF ACUTE STROKE: NO. TECHNICAL DOCUMENTATION: JOB ID: [id number] 2010 [employer]- All Rights Reserved Reading location - IP/workstation name: [email or web address]
--- NOTE | 2020-09-08 11:27 | RADIOLOGY REPORT (SQ) ---
EXAM DESCRIPTION: L SPINE WHOLE IMAGES COMPLETED DATE/TIME: 09/07/2020 5:22 pm REASON FOR STUDY: M54.5 LOW BACK PAIN H91.8X9 OTHER SPECIFIED HEARING LOSS, UNSPECIFIED EAR M54.2 CERVICALGIA M54.5 LOW BACK PAIN COMPARISON: None. NUMBER OF VIEWS: Five views including obliques. TECHNIQUE: AP, lateral, oblique, and sacral radiographic images acquired of the lumbar spine. LIMITATIONS: None. FINDINGS: MINERALIZATION: Normal. SEGMENTATION: Normal. No transitional anatomy. ALIGNMENT: Normal. VERTEBRAE: Maintained height. No fracture or worrisome bone lesion. DISCS: Multilevel disc space narrowing with osteophytes. POSTERIOR ELEMENTS: Pedicles and facets are intact. No pars defect or posterior arch defects. Facet arthropathy is present. HARDWARE: None in the spine. PARASPINAL SOFT TISSUES: Calcified aorta. PELVIS: Intact as visualized. No fractures or worrisome bone lesions. SI joints intact. OTHER: No other significant finding. IMPRESSION: SPONDYLOSIS WITHOUT BONE LESION OR FRACTURE. TECHNICAL DOCUMENTATION: JOB ID: [id number] 2010 [employer]- All Rights Reserved Reading location - IP/workstation name: [email or web address]
--- NOTE | 2020-09-08 11:30 | RADIOLOGY REPORT (SQ) ---
EXAM DESCRIPTION: CERV SP 4 OR 5 VIEWS IMAGES COMPLETED DATE/TIME: 09/07/2020 5:22 pm REASON FOR STUDY: M54.2 CERVICALGIA H91.8X9 OTHER SPECIFIED HEARING LOSS, UNSPECIFIED EAR M54.2 CE RVICALGIA M54.5 LOW BACK PAIN COMPARISON: None. NUMBER OF VIEWS: Five views. TECHNIQUE: AP, lateral, obliques and odontoid radiographic images acquired of the cervical spine. LIMITATIONS: None. FINDINGS: MINERALIZATION: Normal. ALIGNMENT: Anatomic. VERTEBRAE: Vertebral bodies of normal height. DISCS: Fusion C6-7. Anterior osteophytes C5-6. FORAMINA: No osteophytes or foraminal narrowing. LATERAL AND POSTERIOR ELEMENTS: Facets, lateral masses and spinous processes without significant find ings. HARDWARE: Anterior fusion C6-7. SOFT TISSUES: No masses or calcifications. Lung apices clear. OTHER: No other significant finding. IMPRESSION: Cervical disc disease status post C6-7 fusion. TECHNICAL DOCUMENTATION: JOB ID: [id number] 2010 [employer]- All Rights Reserved Reading location - IP/workstation name: [email or web address]
== END ==
LOC: RAD 15:30
PROVIDERS: ATTEND Otolaryngology
DX: H91.8X9 Other specified hearing loss, unspecified ear (principal); M50.323 Other cervical disc degeneration at C6-C7 level; M47.816 Spondylosis without myelopathy or radiculopathy, lumbar region; M54.5 Low back pain; Z98.1 Arthrodesis status
CPT/HCPCS: 70553; 72050; 72110; A9576

== ENCOUNTER → 2020-10-06 | Outpatient (CLI) | payer MEDICARE, MEDICAID ==
[2020-10-06 14:57] LABS: ABSOLUTE BASOPHILS # (AUTO) 0.1 10^3/uL (0.0-0.2); ABSOLUTE EOSINOPHILS # (AUTO) 0.1 10^3/uL (0.0-0.6); ABSOLUTE LYMPHOCYTES (AUTO) 1.7 10^3/uL (0.5-4.7); ABSOLUTE MONOCYTES (AUTO) 0.6 10^3/uL (0.1-1.4); ABSOLUTE NEUT (AUTO) 4.7 10^3/uL (1.7-8.2); BASOPHILS % (AUTO) 1.4 % (0-2); EOSINOPHILS % (AUTO) 1.7 % (0-6); HEMATOCRIT 44.2 % (36.0-47.0); HEMOGLOBIN 14.4 g/dL (12.0-15.5); LYMPHOCYTES % (AUTO) 24.1 % (13-45); MEAN CORPUSCULAR HEMOGLOBIN 29.2 pg (27.0-33.4); MEAN CORPUSCULAR HGB CONC 32.6 g/dL (32.0-36.0); MEAN CORPUSCULAR VOLUME 89 fl (80-97); MONOCYTES % (AUTO) 7.7 % (3-13); PLATELET COUNT 401 10^3/uL (150-450); RED BLOOD COUNT 4.95 10^6/uL (3.72-5.28); RED CELL DISTRIBUTION WIDTH 13.4 % (11.5-14.0); SEGMENTED NEUTROPHILS % (AUTO) 65.1 % (42-78); TOTAL CELLS COUNTED % (AUTO) 100 %; WHITE BLOOD COUNT 7.2 10^3/uL (4.0-10.5)
--- NOTE | 2020-10-06 15:05 | RADIOLOGY REPORT (SQ) ---
EXAM DESCRIPTION: FOOT RIGHT COMPLETE IMAGES COMPLETED DATE/TIME: 10/06/2020 2:48 pm REASON FOR STUDY: (L97.522)(W86.843) L97.522 NON-PRS CHRONIC ULCER OTH PRT LEFT FOOT W FAT LAYER COMPARISON: 09/08/2020 NUMBER OF VIEWS: Three views. TECHNIQUE: AP, lateral and oblique radiographic images acquired of the right foot. LIMITATIONS: None. FINDINGS: MINERALIZATION: Normal. BONES: Amputation of the 2nd digit. Questionable slight bone destruction in the remaining distal mos t portion of the 2nd metatarsal. This appears stable. JOINTS: Soft tissue ulcer. SOFT TISSUES: No soft tissue swelling. No foreign body. OTHER: No other significant finding. IMPRESSION: No evidence of osteomyelitis. TECHNICAL DOCUMENTATION: JOB ID: [id number] 2010 [employer]- All Rights Reserved Reading location - IP/workstation name: [email or web address]
[2020-10-06 15:28] LABS: ALBUMIN 4.2 g/dL (3.5-5.0); ALKALINE PHOSPHATASE 91 U/L (38-126); ANION GAP 9 (5-19); ASPARTATE AMINO TRANSFERASE 30 U/L (14-36); BILIRUBIN,DIRECT 0.2 mg/dL (0.0-0.4); BILIRUBIN,TOTAL 0.5 mg/dL (0.2-1.3); BLOOD UREA NITROGEN 18 mg/dL (7-20); CALCIUM 9.7 mg/dL (8.4-10.2); CARBON DIOXIDE 24 mmol/L (22-30); CHLORIDE 104 mmol/L (98-107); GLUCOSE 240 mg/dL (75-110); TOTAL PROTEIN 7.5 g/dL (6.3-8.2)
[2020-10-06 15:39] LABS: C-REACTIVE PROTEIN < 5.0 mg/L (<10.0)
[2020-10-06 15:52] LABS: ERYTHROCYTE SEDIMENTATION RATE 13 mm/hr (0-30)
== END ==
LOC: RAD 14:10
PROVIDERS: ATTEND Nurse Practitioner Family
DX: E11.621 Type 2 diabetes mellitus with foot ulcer (principal); L97.522 Non-pressure chronic ulcer of other part of left foot with fat layer exposed
CPT/HCPCS: 36415; 80053; 85025; 85652; 86140